=== PATIENT | male | born 1970 | race Caucasian/White ===

== ENCOUNTER 2022-12-29 14:31 | Emergency (ER) | payer BC ==
--- OUTSIDE RECORDS SUMMARY | 2022-12-29 14:34 | XMS REPORT | Continuity of Care Document ---
:1970 Author Organization [facility] t Address [address] [place] [address] [place] [id number] Care Team Providers Name Role Phone Unknown, Physician Primary Care Physician Unavailable PRACHI LUI Attending Clinician Unavailable PRACHI LUI Attending Clinician Unavailable Prachi Lui Attending Clinician Aldo Marcano Attending Clinician PRACHI LUI Admitting Clinician Unavailable Prachi Lui Admitting Clinician PRACHI LUI Admitting Clinician Unavailable Payers Payer Name Policy Type Policy Number Effective Date Expiration Date Jovi morales I BEY [id number] 2021 [place] [address] 00:00:00 Problems Condition Condition Condition Status Onset Resolution Last Treating Co mments Source Name Details Category Date Date Treatment Clinician Date Traumatic Traumatic Disease Active 2021-04 [facility] complete complete 0-10 Health tear of tear of 00:00: left left 00 rotator rotator cuff cuff S46.012A S46.012A Diagnosis Active 2021-042022-03-28 Memoria STRAIN OF STRAIN OF 0-10 09:52:00 l MUSCLE(S) MUSCLE(S) 00:00: Herm jude AND AND 00 TENDON( TENDON( Active 01/22/2022 [facility] Umberto Diabetes Diabetes Problem Active 2022-02-04 Memoria mellitus mellitus 23:35:19 l (disorder) (disorder) rmann Active Problem 02/04/2022 [facility] Epilepsy Epilepsy Problem Active 2022-02-04 Memoria (disorder) (disorder) 23:35:19 l Active Umberto Problem 02/04/2022 [facility] Gastroesop Problem Active 2022-02-04 M karlee hageal Gastroesop 23:35:19 l reflux hageal Umberto disease reflux (disorder) disease (disorder) Active Problem 02/04/2022 [facility] Gout Gout Problem Active 2022-02-04 Memor ia (disorder) (disorder) 23:35:19 l Active [place] Problem 02/04/2022 [facility] 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 23:35:19 l s s [place] (disorder) (disorder) Active Problem 02/04/2022 [facility] Rupture of Rupture Problem Active 2022-02-04 Memoria rotator of rotator 23:35:19 l cuff of cuff of [place] shoulder shoulder Active Problem 02/04/2022 [facility] Sleep Sleep Problem Active 2022-02-04 Memor ia apnea apnea 23:35:19 l (finding) (finding) Herm jude Active Problem 02/04/2022 [facility] Urgent Urgent Problem Active 2022-02-04 Arturo daniela desire to desire to 23:35:19 l urinate urinate Umberto (finding) (finding) Active Problem 02/04/2022 [facility] Allergies, Adverse Reactions, Alerts Allergy Allergy Status Severity Reaction(s) Onset Inactive Treating Comm ents Source Name Type Date Date Clinician No Known No Known Active Memori a Medicati Medicati l on on Umberto Allergie Allergie s s Social History Social Habit Start Date Stop Date Quantity Comments Source Exposure to 2022-01-12 2022-01-22 Not sure [facility] SARS-CoV-2 (event) 00:00:00 12:22:00 Tobacco use and 2022-01-22 2022-01-22 Smokeless tobacco [place] [facility] exposure 00:00:00 00:00:00 non-user Alcohol intake 2022-01-22 2022-01-22 Current drinker of [facility] 00:00:00 00:00:00 alcohol (finding) Sex Ass[birth year] [facility] 00:00:00 00:00:00 Smoking Status Start Date Stop Date Source Tobacco smoking status [facility] Medications Ordered Filled Start Stop Current Ordering Indication Dosage Frequency Signature Comments Components Source Medication Medication Date Date Medication? Clinician (SIG) Name Name albuterol 2021-04 Yes 2 puff, Memor ia 90 mcg/inh 0-20 INHALATION l inhalation 15:46: , PRN Christ n powder 00 tadalafil 2021-04 Yes 10 mg, PO, Me moria 0-20 Daily l 15:45: [place] 00 Prevacid 2021-04 Yes PO, Daily Arturo daniela 0-20 l 15:45: Umberto 00 metFORMIN 2021-04 Yes 1,000 mg, Mem oria 0-20 PO, Daily l 15:44: [place] 00 allopurinol 2021-04 Yes 300 mg, Mem oria 0-20 PO, Daily l 15:44: [place] 00 Depakote ER 2021-04 Yes 1,000 mg = Memoria 500 mg oral 0-20 2 tab, PO, l tablet, 15:43: Daily [place] extended 00 release lansoprazol 2021-04 Yes [facility] e 0-10 Health (Prevacid) 13:53: [address] 44 capsule metFORMIN 2021-04 Yes [facility] (Glucophage 0-10 Health ) 500 MG 00:00: tablet 00 tadalafil 2017-04 Yes [facility] (Cialis) 10 0-10 Health MG tablet 00:00: 00 allopurinol 2005-04 Yes [facility] (Zyloprim) 0-10 Health 300 MG 00:00: tablet 00 divalproex 1989-04 Yes [facility] (Depakote 0-10 Health ER) 500 MG 00:00: 24 hr 00 tablet Vital Signs Vital Name Observation Time Observation Value Comments Source Body height 2022-01-22 18:52:00 177.8 cm [facility] Body weight 2022-01-22 18:52:00 90[facility]719 [facility] BMI 2022-01-22 18:52:00 28.70 kg/m2 [facility] Systolic (mm Hg) 2022-02-02 22:00:00 Arturo rial [place] Diastolic (mm Hg) 2022-02-02 22:00:00 Mem orial [place] Height 2022-02-01 15:40:00 5 [ft_i] [facility] Weight 2022-02-01 15:40:00 Mikaela Umberto BMI Calculated 2022-02-01 15:40:00 Liudmila Patel Procedures Procedure Date / Time Performing Source Performed Clinician [facility] EGD - Esophagogastroduodenoscopy [facility] Colonoscopy [facility] Cholecystectomy [facility] ESWL of kidney [facility] Encounters Start End Encounter Admission Attending Care Care Encounter Source Date/Time Date/Time Type Type Clinicians Facility Department ID 2022-10-[address] [facility] [id number] [place] 10:24:56 [id number] [facility] 2022-09-[address] [facility] [id number] [place] 14:52:57 [id number] [facility] 2022-06-[address] [facility] [id number] [place] 09:08:12 [id number] [facility] 2022-06-[address] [facility] [id number] [place] 04:20:03 [id number] [facility] 2022-05-[address] [facility] [id number] [place] 11:58:17 [id number] [facility] 2022-02-[address] [facility] [id number] [place] 13:47:11 [id number] [facility] 2022-02-[address] [facility] [id number] [place] 14:35:48 [id number] [facility] 2022-02-[address] [facility] [id number] [place] 10:28:10 [id number] [facility] 2022-01-[address] [facility] [id number] [place] 04:00:35 [id number] [facility] 2022-01-[address] [facility] [id number] [place] 12:12:48 [id number] [facility] 2022-01-[address] [facility] [id number] [place] 10:25:01 [id number] [facility] 2022-01-[address] [facility] [id number] [place] 11:48:32 [id number] [facility] 2022-02-19 2022-02-[address] [facility] [id number] [place] 11:15:00 11:58:57 Health 2022-02-19 2022-02-19 [id number] [place] 11:15:00 11:58:37 PRACHI [facility] 2022-02-02 2022-02-02 Day nullFlavo [facility] [id number] Memoria 11:40:00 22:10:00 Surgery r [place] 00 l [facility] 2022-02-02 2022-02-[address] [id number] 06:40:00 17:10:00 PRACHI 2022-02-02 2022-02-02 Outpatient Pedro, [id number] 06:40:00 17:10:00 Prachi [id number] 2022-02-02 2022-02-02 Outpatient PEDRO, [facility] [id number] [place] 12:45:00 12:45:00 [facility] 2022-01-22 2022-01-[address] [facility] [id number] [place] 13:30:00 15:12:30 [facility] 2022-01-22 2022-01-22 [facility] [id number] [place] 13:30:00 14:32:09 Visit Prachi [place] [id number] [facility] [id number] [place] [id number] 2021-02-07 2021-02-07 Ambulatory nullFlavo [facility]NA [id number] Memoria 21:00:00 21:00:00 Pre-Reg r Neurology 01 l Taylor [place] 2021-02-07 2021-02-07 Outpatient [facility]IE [facility] [id number] Memoria 16:00:00 16:00:00 01 raymond [place] 2021-02-07 2021-02-07 Outpatient Jeet CAILINSCHER MISCHER [id number] 16:00:00 16:00:00 Aldo Romero 2021-02-03 2021-02-03 Ambulatory nullFlavo MNA [id number] Memoria 14:00:00 14:00:00 Pre-Reg r Neurology 00 l Taylor [place] 2021-02-03 2021-02-03 Outpatient MHIE [place] [id number] Memoria 09:00:00 09:00:00 00 l [place] 2021-02-03 2021-02-03 Outpatient Jeet [facility] [id number] 09:00:00 09:00:00 Aldo Romero Results Test Description Test Time Test Comments Results Result Comments Source POINT OF CARE 2022-02-02 20:14:00 Test Item Value Reference Range Interpretation Comme nts Glucose POC (test code = Glucose POC) 120 70-99 Mikaela Shipman
[2022-12-29] MEDS ORDERED: VALPROATE NA 500 MG/5 ML INJ IV ONE (15:08)
[2022-12-29] MEDS ORDERED: DIVALPROEX DR 250 MG TAB PO ONE ×2 (15:08→15:09)
[2022-12-29] MEDS ORDERED: NA CHLORIDE 0.9% 1,000 ML ONE ×2 (15:08→17:21)
[2022-12-29] MEDS ORDERED: NA CHLORIDE 0.9% 500 ML ONE ×2 (15:09→17:11)
[2022-12-29] MEDS ORDERED: NA CHLORIDE 0.9% 50 ML ONE (15:13)
[2022-12-29] MEDS ORDERED: LORazepam 2 MG/ML VIAL ONE (15:21)
--- NOTE | 2022-12-29 15:21 | RAD REPORT ---
EXAM DESCRIPTION: Junior Single View12/29/2022 2:58 pm CLINICAL HISTORY: cough COMPARISON: none FINDINGS: Mild bilateral interstitial lung opacities. Small opacity right base. Heart is normal size IMPRESSION: Mild bilateral interstitial lung opacities may represent a pneumonitis or viral pneumoni a. Mild right basilar opacity may represent a small infiltrate. Follow-up x-ray in a couple weeks recomm ended re-evaluation
--- NOTE | 2022-12-29 16:10 | RAD REPORT ---
EXAM DESCRIPTION: CT - Head C Spine Cap Wo Con - 12/29/2022 3:39 pm CLINICAL HISTORY: Seizure. Head and neck injury with chest and abdominal pain status post fall TECHNIQUE: Computed axial tomography of head, neck, chest, abdomen and pelvis obtained. IV and oral contrast not requested. Coronal and sagittal reconstruction performed. All CT scans are performed using dose optimization technique as appropriate and may include automated exposure control or mA/KV adjustment according to patient size. COMPARISON: None FINDINGS: An intracranial bleed is not seen. The ventricles are normal in caliber. An extra-axial fluid collection is not noted. Fluid within the sinuses/mastoids is not seen. A cervical fracture is not seen. No dislocation is noted. The evaluation of mediastinum, xu, vessels, solid organs and bowel are limited secondary to the lac k of contrast administration. A mediastinal hematoma is not noted. A pleural effusion is not seen. A lung contusion is not present. Small areas of atelectasis within the lung bases. Mild bilateral interstitial lung opacities. Calcified hilar calcified mediastinal lymph nodes. The liver,spleen, pancreas, adrenals,kidneys and bladder do not demonstrate an acute traumatic injury A small hiatal hernia. Nonobstructing left renal calculi Compression deformities involve several thoracic and lumbar vertebral bodies. Most are chronic. An ap proximately 60% compression fracture involves the L1 vertebral body. Mild retropulsion of bone into t he spinal canal is present Spleen measures 20 centimeters IMPRESSION: No acute intracranial abnormality is seen. A cervical fracture is not visualized. If the patient continues to have symptoms to suggest intracran ial/spinal cord pathology MRI be recommended Moderate compression fracture L1 vertebral body of indeterminate age. If clinically indicated further evaluation with MRI could be obtained Additional thoracic and lumbar compression deformities are probably chronic. These also could be asse ssed with the MRI Mild bilateral interstitial lung opacities may be chronic or indicate a mild pneumonitis Marked splenomegaly
[2022-12-29] MEDS ORDERED: NA CHLORIDE 0.9% 100 ML ONE (16:17)
[2022-12-29] MEDS ORDERED: PIPERACIL/TAZO 3.375 GM VIAL IV ONE (16:18)
[2022-12-29 17:22] LABS: Absolute Lymphocytes (CBC) 0.3 K/uL (0.7-4.9); Hematocrit 21.5 % (39.6-49.0); Lymphocytes % 5.6 % (15.3-44.8); MCV 78.5 fL (80-100); MPV 8.5 fL (7.6-11.3); Platelets 79 thou/uL (152-406); RBC Red Blood Cell Count 2.74 M/uL (4.33-5.43)
[2022-12-29 17:28] LABS: Protime INR 1.16
[2022-12-29 17:36] LABS: ALT/SGPT 32 U/L (16-61); AST/SGOT 30 U/L (15-37); Alkaline Phosphatase 54 U/L (45-117); BUN Blood Urea Nitrogen 33 mg/dL (7-18); Bicarbonate 20 mEq/L (21-32); Bilirubin Direct 0.4 mg/dL (0-0.2); Bilirubin Indirect, Calculated 0.9 mg/dL (0.2-0.8); Bilirubin Total 1.3 mg/dL (0.2-1.0); Glomerular Filtration Rate 54 ml/min (=/>90); Glucose Level 195 mg/dL (74-106); Magnesium 2.9 mg/dL (1.6-2.4); NT PRO-BNP 25 pg/mL (<125); Potassium 4.1 mEq/L (3.5-5.1); Protein, Total 5.7 g/dL (6.4-8.2); Sodium Level 140 mEq/L (136-145)
[2022-12-29 17:39] LABS: Specific Gravity 1.017 (1.005-1.030); Urine Bacteria None Seen /HPF (<20); Urine Bilirubin NEGATIVE (Negative); Urine Blood 2+ (Negative); Urine Clarity Turbid (Clear); Urine Color Light-Yellow (Yellow); Urine Glucose NEGATIVE (Negative); Urine Granular Casts >20 /LPF (None Seen); Urine Mucus Slight /HPF (None Seen); Urine Protein 1+ (Negative); Urine RBC <5 /HPF (None Seen); Urine Sperm Present (None Seen); Urine Urobilinogen Normal (Normal); Urine pH 5.5 (5.0-7.0)
[2022-12-29 17:41] LABS: Lipase 21 U/L (13-75); Valproic Acid (Depakene) Level 46.4 mcg/mL (50.0-100.0)
[2022-12-29 17:46] LABS: Barbiturates NEGATIVE (NEGATIVE); Benzodiazepines NEGATIVE (NEGATIVE); Cocaine NEGATIVE (NEGATIVE); METHAMPHETAM NEGATIVE (NEGATIVE); Methadone NEGATIVE (NEGATIVE); Opiates NEGATIVE (NEGATIVE); Phencyclidine NEGATIVE (NEGATIVE); THC Cannibis NEGATIVE (NEGATIVE)
--- NOTE | 2022-12-29 18:09 | EDPHYS ---
Physician Documentation [facility] Name: Chris Galvna Age: 52 yrs Sex: Male : 1970 Arrival Date: 12/29/2022 Time: 14:31 Bed 15 Private MD: [place] Physician Chapito Magallanes HPI: 12/29 15:18 This 52 yrs old Male presents to ER via EMS with complaints of Seizure. carol 15:18 The patient presents with a history of multiple seizures, a total of 2. Character of carol seizure(s): Loss of consciousness: the patient experienced loss of consciousness, Motor activity: generalized, Incontinence: none, Apnea: the patient did not experience apnea, Circulation: the patient did not experience evidence of pulse disturbance. Seizure onset: just prior to arrival. Context: the seizure(s) was witnessed, by family, . Seizure Hx: Cause: unknown, Last seizure: The patient's last seizure was approximately 10 year(s) ago. Associated injury: Other: laceration, 1 cm(s), tenderness, TOUNGE. Current symptoms: confusion. Historical: - Allergies: 14:36 No Known Allergies; me1 - Home Meds: 14:42 Depakote ER 500 mg Oral Tablet, Extended Release 24 hr 2 tabs daily [Active]; meloxicam eh3 7.5 mg oral tablet daily [Active]; metformin 500 mg Oral Tablet, Extended Release 24 hr daily [Active]; allopurinol 300 mg Oral tablet daily [Active]; - PMHx: 14:36 epilepsy; Diabetes mellitus; me1 - Immunization history:: Adult Immunizations unknown. - Social history:: Smoking status: Patient denies any tobacco usage or history of. - Family history:: not pertinent. ROS: 15:18 Constitutional: Negative for fever, chills, and weight loss, Eyes: Negative for injury, carol pain, redness, and discharge, ENT: Negative for injury, pain, and discharge, Neck: Negative for injury, pain, and swelling, Cardiovascular: Negative for chest pain, palpitations, and edema, Respiratory: Negative for shortness of breath, cough, wheezing, and pleuritic chest pain, Abdomen/GI: Negative for abdominal pain, nausea, vomiting, diarrhea, and constipation, Back: Negative for injury and pain, : Negative for injury, bleeding, discharge, and swelling, MS/Extremity: Negative for injury and deformity, Skin: Negative for injury, rash, and discoloration, Psych: Negative for depression, anxiety, suicide ideation, homicidal ideation, and hallucinations, Allergy/Immunology: Negative for hives, rash, and allergies, Endocrine: Negative for neck swelling, polydipsia, polyuria, polyphagia, and marked weight changes, Hematologic/Lymphatic: Negative for swollen nodes, abnormal bleeding, and unusual bruising. 15:18 Neuro: Positive for altered mental status, seizure activity. Exam: 15:18 Constitutional: This is a well developed, well nourished patient who is awake, alert, acrol and in no acute distress. Head/Face: Normocephalic, atraumatic. Eyes: Pupils equal round and reactive to light, extra-ocular motions intact. Lids and lashes normal. Conjunctiva and sclera are non-icteric and not injected. Cornea within normal limits. Periorbital areas with no swelling, redness, or edema. ENT: Nares patent. No nasal discharge, no septal abnormalities noted. Tympanic membranes are normal and external auditory canals are clear. Oropharynx with no redness, swelling, or masses, exudates, or evidence of obstruction, uvula midline. Mucous membranes moist. Neck: Trachea midline, no thyromegaly or masses palpated, and no cervical lymphadenopathy. Supple, full range of motion without nuchal rigidity, or vertebral point tenderness. No Meningismus. Chest/axilla: Normal chest wall appearance and motion. Nontender with no deformity. No lesions are appreciated. Cardiovascular: Regular rate and rhythm with a normal S1 and S2. No gallops, murmurs, or rubs. Normal PMI, no JVD. No pulse deficits. Respiratory: Lungs have equal breath sounds bilaterally, clear to auscultation and percussion. No rales, rhonchi or wheezes noted. No increased work of breathing, no retractions or nasal flaring. Abdomen/GI: Soft, non-tender, with normal bowel sounds. No distension or tympany. No guarding or rebound. No evidence of tenderness throughout. Back: No spinal tenderness. No costovertebral tenderness. Full range of motion. Male : Normal genitalia with no discharge or lesions. Skin: Warm, dry with normal turgor. Normal color with no rashes, no lesions, and no evidence of cellulitis. MS/ Extremity: Pulses equal, no cyanosis. Neurovascular intact. Full, normal range of motion. Neuro: Awake and alert, GCS 15, oriented to person, place, time, and situation. Cranial nerves II-XII grossly intact. Motor strength 5/5 in all extremities. Sensory grossly intact. Cerebellar exam normal. Normal gait. Psych: Awake, alert, with orientation to person, place and time. Behavior, mood, and affect are within normal limits. 15:18 ECG was reviewed by the Attending Physician. Vital Signs: 14:34 BP 98 / 47; Pulse 125; Resp 17; Temp 98(O); Pulse Ox 94% on R/A; Weight 93.44 kg; me1 Height 5 ft. 10 in. ; 14:45 BP 111 / 45; Pulse 134; Resp 23; Pulse Ox 94% on 3 lpm NC; eh3 15:00 BP 115 / 64; Pulse 132; Resp 34; Pulse Ox 98% on 3 lpm NC; eh3 15:15 BP 99 / 50; Pulse 127; Resp 28; Pulse Ox 95% on 3 lpm NC; eh3 15:45 BP 93 / 54; Pulse 127; Resp 17; Pulse Ox 100% on 3 lpm NC; eh3 16:00 BP 95 / 54; Pulse 120; Resp 34; Pulse Ox 97% on R/A; eh3 16:15 BP 102 / 56; Pulse 118; Resp 28; Pulse Ox 96% on R/A; eh3 16:30 BP 98 / 56; Pulse 117; Resp 26; Pulse Ox 94% on R/A; eh3 16:51 BP 89 / 54; Pulse 114; Resp 25; Pulse Ox 96% on R/A; eh3 17:16 BP 111 / 59; Pulse 116; Resp 19; Pulse Ox 98% on R/A; eh3 17:40 BP 114 / 91; Pulse 113; Resp 25; Pulse Ox 96% on R/A; eh3 18:00 BP 104 / 67; Pulse 112; Resp 23; Pulse Ox 99% on R/A; eh3 18:20 BP 92 / 73; Pulse 114; Resp 24; Pulse Ox 100% on R/A; eh3 18:40 BP 117 / 63; Pulse 110; Resp 23; Pulse Ox 98% on R/A; eh3 14:34 Body Mass Index 29.56 (93.44 kg, 177.8 cm) me1 Sachin Coma Score: 14:36 Eye Response: spontaneous(4). Motor Response: obeys commands(6). Verbal Response: me1 oriented(5). Total: 15. MDM: 14:33 Patient medically screened. [facility] 15:23 Differential diagnosis: cerebral vascular accident. Data reviewed: vital signs, nurses [facility] notes, lab test result(s), EKG, radiologic studies, CT scan, plain films. Consideration of Admission/Observation Escalation of care including admission/observation considered. I considered the following discharge prescriptions or medication management in the emergency department Medications were administered in the Emergency Department. See MAR. Test considered but Not performed: MRI: NO MRI BRAIN. Care significantly affected by the following chronic conditions: Diabetes, EPILEPSY. 12/29 14:42 Order name: Basic Metabolic Panel; Complete Time: 17:44 [facility] 12/29 14:42 Order name: CBC with Diff [facility] 12/29 14:42 Order name: LFT's; Complete Time: 17:44 [facility] 12/29 14:42 Order name: Magnesium; Complete Time: 17:44 [facility] 12/29 14:42 Order name: NT PRO-BNP; Complete Time: 17:44 [facility] 12/29 14:42 Order name: PT-INR; Complete Time: 17:40 [facility] 12/29 14:42 Order name: Troponin HS; Complete Time: 17:44 [facility] 12/29 14:42 Order name: Urinalysis w/ reflexes; Complete Time: 17:40 [facility] 12/29 14:42 Order name: Acetaminophen; Complete Time: 17:44 [facility] 12/29 14:42 Order name: ETOH Level; Complete Time: 17:40 [facility] 12/29 14:42 Order name: Ptt, Activated; Complete Time: 17:40 [facility] 12/29 14:42 Order name: Salicylate; Complete Time: 17:53 [facility] 12/29 14:42 Order name: Urine Drug Screen; Complete Time: 17:53 [facility] 12/29 14:57 Order name: Lipase; Complete Time: 17:44 [facility] 12/29 14:57 Order name: Valproic Acid (Depakene) Level; Complete Time: 17:44 [facility] 12/29 15:50 Order name: Blood Culture Adult (2) [facility] 12/29 15:50 Order name: Lactate w/ 2H reflex if indic.; Complete Time: 17:40 [facility] 12/29 17:43 Order name: Type And Screen [facility] 12/29 18:49 Order name: ABO/RH no charge [facility] 12/29 19:09 Order name: Packed RBCs (Additional Unit) [facility] 12/29 19:31 Order name: CBC Smear Scan [facility] 12/29 20:33 Order name: Lactate Sepsis 2 HR Follow-up [facility] 12/29 14:42 Order name: XRAY Chest (1 view); Complete Time: 15:49 [facility] 12/29 15:17 Order name: CT Traumagram (Head C Spine CAP wo con); Complete Time: 16:33 [facility] 12/29 14:42 Order name: EKG; Complete Time: 14:43 [facility] 12/29 14:42 Order name: Cardiac monitoring; Complete Time: 14:49 [facility] 12/29 14:42 Order name: EKG - Nurse/Tech; Complete Time: 16:09 [facility] 12/29 14:42 Order name: IV Saline Lock; Complete Time: 14:49 [facility] 12/29 14:42 Order name: Labs collected and sent; Complete Time: 16:09 [facility] 12/29 14:42 Order name: O2 Per Protocol; Complete Time: 14:49 [facility] 12/29 14:42 Order name: O2 Sat Monitoring; Complete Time: 14:49 [facility] 12/29 14:42 Order name: Suicide Screening ([place]); Complete Time: 14:49 [facility] 12/29 14:42 Order name: Seizure Precautions; Complete Time: 14:49 [facility] 12/29 16:31 Order name: Labs - recollect needed; Complete Time: 17:09 12/29 17:43 Order name: Transfuse; Complete Time: 20:28 [facility] 12/29 17:44 Order name: IV Saline Lock - Large Bore; Complete Time: 17:58 [facility] EC:18 Rate is 126 beats/min. Rhythm is regular. QRS [place] is Normal. [place] interval is normal. [facility] QRS interval is normal. QT interval is normal. No Q waves. T waves are Normal. No ST changes noted. Clinical impression: Sinus tachycardia. Interpreted by me. Reviewed by me. Administered Medications: 15:00 Drug: Depacon IV 500 mg Volume: 5 ml; Route: IV; Rate: calculated rate; Site: left eh3 antecubital; 16:00 Follow up: IV Status: Completed infusion; IV Intake: 500ml eh3 15:11 Drug: Ativan IVP 2 mg Route: IVP; Site: left antecubital; me1 15:30 Follow up: Response: No adverse reaction; RASS: Drowsy (-1) 3 15:30 Drug: NS 0.9% IV 1000 ml Route: IV; Rate: 1 bolus; Site: left antecubital; 3 16:30 Follow up: IV Status: Completed infusion; IV Intake: 1000ml 3 15:30 Drug: NS 0.9% IV 1000 ml Route: IV; Rate: 1 bolus; Site: left antecubital; eh3 16:30 Follow up: IV Status: Completed infusion; IV Intake: 1000ml 3 16:20 Drug: Piperacillin-Tazobactam IVPB 3.375 grams Route: IVPB; Infused Over: 60 mins; 3 Site: left antecubital; 17:20 Follow up: Response: No adverse reaction; IV Status: Completed infusion; IV Intake: eh3 100ml 17:30 Drug: Depakote PO 500 mg Route: PO; 3 18:00 Follow up: Response: No adverse reaction 3 17:58 Drug: NS 0.9% IV 1000 ml Route: IV; Rate: 1 bolus; Site: right antecubital; ld1 20:00 Follow up: IV Status: Completed infusion; IV Intake: 1000ml 3 18:12 Drug: Pantoprazole IVP 80 mg Route: IVP; Site: right antecubital; ld1 18:45 Follow up: Response: No adverse reaction 3 18:15 Drug: Pantoprazole IV 8 mg/hr Route: IV; Rate: 25 ml/hr; Site: right antecubital; ld1 21:00 Follow up: Response: No adverse reaction; IV Status: Infusion continued upon transfer; 3 IV Intake: 75ml 18:35 Drug: fentaNYL (PF) IVP 25 mcg Route: IVP; Site: left antecubital; ld1 19:30 Follow up: Response: No adverse reaction eh3 18:35 Drug: Ondansetron IVP 4 mg Route: IVP; Site: left antecubital; ld1 19:30 Follow up: Response: No adverse reaction eh3 19:52 Drug: fentaNYL (PF) IVP 25 mcg Route: IVP; Site: left antecubital; eh3 20:30 Follow up: Response: No adverse reaction eh3 Disposition Summary: 12/29/22 18:08 Transfer Ordered Transfer Location: 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 EDMS EDMS 14:58 14:46 VALPROIC ACID (DEPAKOTE)+C.LAB.BRZ ordered. EDMS EDMS 15:36 14:43 Head Brain Wo Cont+CT.RAD.BRZ ordered. EDMS EDMS 18:21 18:08 to [facility] carol carol 21:01 18:21 to [facility] carol kb3
--- NOTE | 2022-12-29 18:09 | ER ---
Nurse's Notes [facility] Name: Chris Galvan Age: 52 yrs Sex: Male : 1970 Arrival Date: 12/29/2022 Time: 14:31 Bed 15 Private MD: Diagnosis: GI Bleed/ Gastrointestinal hemorrhage, unspecified-upper;Epilepsy, unspecified, intractable, with status epilepticus-subtheraputic Depokote;Fracture of lumbar vertebra-LUMBAR #1 60% COMPRESSION FX WITH RETROPULSION;Unspecified kidney failure;Splenomegaly, not elsewhere classified-20 CM;Sarcoidosis of lung;Sarcoidosis of lymph nodes-BONE MARROW;Anemia, unspecified-BLOOD LOSS;Pneumonia due to other specified bacteria-BILATERAL, PNEUMONITIS;Vomiting;Diarrhea, unspecified Presentation: 12/29 14:34 Chief complaint: EMS states: toned out to house for seizure that lasted about 30 me1 seconds. Significant other reports that patient has had a seizure in about 10 years but does have a hx of epilepsy. Coronavirus screen: Vaccine status: Patient reports receiving the 2nd dose of the covid vaccine. Ebola Screen: No symptoms or risks identified at this time. Initial Sepsis Screen: Does the patient meet any 2 criteria? HR > 90 bpm. No. Patient's initial sepsis screen is negative. Does the patient have a suspected source of infection? No. Patient's initial sepsis screen is negative. Risk Assessment: Do you want to hurt yourself or someone else? Patient reports no desire to harm self or others. Onset of symptoms was December 29, 2022. 14:34 Method Of Arrival: [place] [facility] [place] Acuity: GLORIA 3 me1 Triage Assessment: 14:36 General: Appears comfortable, well groomed, well developed, well nourished, Behavior is me1 cooperative, appropriate for age, flat, postictal. Pain: Denies pain. Neuro: Level of Consciousness is awake, alert, obeys commands, Oriented to person, place, time, situation, Appropriate for age. Cardiovascular: Capillary refill < 3 seconds Patient's skin is warm and dry. Respiratory: Airway is patent Respiratory effort is even, unlabored, Respiratory pattern is regular, symmetrical. Historical: - Allergies: 14:36 No Known Allergies; me1 - Home Meds: 14:42 Depakote ER 500 mg Oral Tablet, Extended Release 24 hr 2 tabs daily [Active]; meloxicam eh3 7.5 mg oral tablet daily [Active]; metformin 500 mg Oral Tablet, Extended Release 24 hr daily [Active]; allopurinol 300 mg Oral tablet daily [Active]; - PMHx: 14:36 epilepsy; Diabetes mellitus; me1 - Immunization history:: Adult Immunizations unknown. - Social history:: Smoking status: Patient denies any tobacco usage or history of. - Family history:: not pertinent. Screenin:45 [facility] ED Fall Risk Assessment (Adult) Score/Fall Risk Level 3 or more points = High eh3 Risk Oriented to surroundings, Maintained a safe environment, Educated pt \T\ family on fall prevention, incl call for assistance when getting out of bed, Assessed \T\ reinforced patient's understanding of fall precautions, Provided non-skid footwear, Hourly rounding (assess needs \T\ fall precautionary measures) done, Utilized family, sitter, or virtual educational program director as indicated. Abuse screen: Denies threats or abuse. Denies injuries from another. Nutritional screening: Has had N/V for 3 or more days. Tuberculosis screening: No symptoms or risk factors identified. 17:30 [place]on Swallow Protocol Exclusion Criteria: Exclusion Criteria Result: Proceed Brief 3 Cognitive Screen What is your name? Normal, Where are you right now? Normal, What year is it? Normal. Oral Mechanism Examination Facial Symmetry: Normal, Motion: Normal, Lip Closure: Normal, Oral Mechanism Result: Normal. 3 oz Water Swallow Challenge: Pt able to drink all water without stopping, coughing, choking or throat clearing: Yes Result: PASS. Assessment: 14:45 General: Appears ill, Behavior is drowsy. Pain: Complains of pain in back. Neuro: Level eh3 of Consciousness is post ictal, Oriented to person, place. Cardiovascular: Capillary refill < 3 seconds Patient's skin is warm and dry. Respiratory: Airway is patent Respiratory effort is even, Respiratory pattern is symmetrical, tachypnea. GI: Abdomen is round non-distended. Derm: Skin is dry, Skin is jaundiced, Skin temperature is warm. 15:00 Reassessment: Patient appears in no apparent distress at this time. Pt is alert and 3 states his name and date of clearly. 15:09 Reassessment: Pt actively seizing, seizure precautions in place, sustained bite to eh3 tongue with moderate amount of bleeding. RN and pt's significant other at bedside protecting pt from bodily injury. 15:11 Reassessment: Seizure lasted approximately 1 minute. Pt now in postictal state. eh3 15:30 Reassessment: Patient appears in no apparent distress at this time. Patient and/or eh3 family updated on plan of care and expected duration. Pain level reassessed. 16:00 Reassessment: Patient appears in no apparent distress at this time. Pt is A\T\O x person eh3 \T\ place, equal unlabored tachypnea, skin warm/dry/jaundiced. 16:30 Reassessment: Patient appears in no apparent distress at this time. Patient and/or eh3 family updated on plan of care and expected duration. Pain level reassessed. Pt is A\T\O x person \T\ place, equal unlabored tachypnea, skin warm/dry/jaundiced. 17:00 Reassessment: Patient appears in no apparent distress at this time. Pt is A\T\O x person eh3 \T\ place, equal unlabored tachypnea, skin warm/dry/jaundiced. 17:30 Reassessment: Patient appears in no apparent distress at this time. Patient and/or eh3 family updated on plan of care and expected duration. Pain level reassessed. Pt is A\T\O x person \T\ place, equal unlabored tachypnea, skin warm/dry/jaundiced. 18:00 Reassessment: Patient appears in no apparent distress at this time. Pt is A\T\O x person eh3 \T\ place, equal unlabored tachypnea, skin warm/dry/jaundiced. 18:30 Reassessment: Patient appears in no apparent distress at this time. Patient and/or eh3 family updated on plan of care and expected duration. Pain level reassessed. Pt is A\T\O x person \T\ place, equal unlabored tachypnea, skin warm/dry/jaundiced. 18:35 Reassessment: Failed attempt to call report to [facility]; nurse states pt is not eh3 assigned to a nurse yet and requests to call back in 10 minutes. 18:45 Reassessment: Failed attempt to call report to [facility]. Placed on hold for 5 eh3 minutes. 18:55 Reassessment: Failed attempt to call report to [facility]. No answer to nurse's 3 station phone. 19:00 Reassessment: Patient appears in no apparent distress at this time. Pt is A\T\O x person eh3 \T\ place, equal unlabored tachypnea, skin warm/dry/jaundiced. 19:25 Reassessment: Nurse to nurse report received by BRIAN Morrison at [facility]. [facility] 19:30 Reassessment: Patient appears in no apparent distress at this time. Patient and/or 3 family updated on plan of care and expected duration. Pain level reassessed. Pt is A\T\O x person \T\ place, equal unlabored tachypnea, skin warm/dry/jaundiced. 20:00 Reassessment: Patient appears in no apparent distress at this time. Pt is A\T\O x person eh3 \T\ place, equal unlabored tachypnea, skin warm/dry/jaundiced. 20:10 Reassessment: PRBC infusion started at 2009, see Blood Product Transfusion Record for 3 additional information. 20:30 Reassessment: Patient appears in no apparent distress at this time. Patient and/or eh3 family updated on plan of care and expected duration. Pain level reassessed. Pt is A\T\O x person \T\ place, equal unlabored tachypnea, skin warm/dry/jaundiced. Vital Signs: 14:34 BP 98 / 47; Pulse 125; Resp 17; Temp 98(O); Pulse Ox 94% on R/A; Weight 93.44 kg; me1 Height 5 ft. 10 in. ; 14:45 BP 111 / 45; Pulse 134; Resp 23; Pulse Ox 94% on 3 lpm NC; eh3 15:00 BP 115 / 64; Pulse 132; Resp 34; Pulse Ox 98% on 3 lpm NC; eh3 15:15 BP 99 / 50; Pulse 127; Resp 28; Pulse Ox 95% on 3 lpm NC; eh3 15:45 BP 93 / 54; Pulse 127; Resp 17; Pulse Ox 100% on 3 lpm NC; eh3 16:00 BP 95 / 54; Pulse 120; Resp 34; Pulse Ox 97% on R/A; eh3 16:15 BP 102 / 56; Pulse 118; Resp 28; Pulse Ox 96% on R/A; eh3 16:30 BP 98 / 56; Pulse 117; Resp 26; Pulse Ox 94% on R/A; eh3 16:51 BP 89 / 54; Pulse 114; Resp 25; Pulse Ox 96% on R/A; eh3 17:16 BP 111 / 59; Pulse 116; Resp 19; Pulse Ox 98% on R/A; eh3 17:40 BP 114 / 91; Pulse 113; Resp 25; Pulse Ox 96% on R/A; eh3 18:00 BP 104 / 67; Pulse 112; Resp 23; Pulse Ox 99% on R/A; eh3 18:20 BP 92 / 73; Pulse 114; Resp 24; Pulse Ox 100% on R/A; eh3 18:40 BP 117 / 63; Pulse 110; Resp 23; Pulse Ox 98% on R/A; eh3 14:34 Body Mass Index 29.56 (93.44 kg, 177.8 cm) me1 Sachin Coma Score: 14:36 Eye Response: spontaneous(4). Motor Response: obeys commands(6). Verbal Response: me1 oriented(5). Total: 15. ED Course: 14:33 Patient arrived in ED. [facility] 14:33 Chapito Magallanes MD is Attending Physician. [facility] 14:36 Triage completed. me1 14:36 Arm band placed on Patient placed in an exam room. me1 14:42 Lena Sewell, RN is Primary Nurse. eh3 14:45 Patient has correct armband on for positive identification. Placed in gown. Bed in low eh3 position. Call light in reach. Side rails up X2. Adult w/ patient. Seizure precautions initiated. Provided Education on: Use of call morgan. Client placed on continuous cardiac and pulse oximetry monitoring. NIBP monitoring applied. 14:45 Maintain EMS IV. Dressing intact. Good blood return noted. Site clean \T\ dry. Gauge \T\ eh 3 site: 20g LAC. 15:00 XRAY Chest (1 view) In Process Unspecified. EDMS 15:41 CT Traumagram (Head C Spine CAP wo con) In Process Unspecified. EDMS 17:09 Lactate w/ 2H reflex if indic. Sent. ld1 17:09 Blood Culture Adult (2) Sent. ld1 17:09 Lipase Sent. ld1 17:09 Inserted saline lock: 20 gauge in right antecubital area, using aseptic technique. [facility] Blood collected. IV inserted by Marnie Ruiz RN. 18:30 Consent for blood and/or blood product transfusion explained by staff, explained by [facility] physician, signed by patient. 18:31 Type And Screen Sent. ds4 21:00 No provider procedures requiring assistance completed. Patient transferred, IV remains [facility] in place. Administered Medications: 15:00 Drug: Depacon IV 500 mg Volume: 5 ml; Route: IV; Rate: calculated rate; Site: left 3 antecubital; 16:00 Follow up: IV Status: Completed infusion; IV Intake: 500ml [facility] 15:11 Drug: Ativan IVP 2 mg Route: IVP; Site: left antecubital; [facility] [place] Follow up: Response: No adverse reaction; RASS: Drowsy (-1) [facility] 15:30 Drug: NS 0.9% IV 1000 ml Route: IV; Rate: 1 bolus; Site: left antecubital; 3 16:30 Follow up: IV Status: Completed infusion; IV Intake: 1000ml [facility] 15:30 Drug: NS 0.9% IV 1000 ml Route: IV; Rate: 1 bolus; Site: left antecubital; 3 16:30 Follow up: IV Status: Completed infusion; IV Intake: 1000ml [facility] 16:20 Drug: Piperacillin-Tazobactam IVPB 3.375 grams Route: IVPB; Infused Over: 60 mins; [facility] Site: left antecubital; 17:20 Follow up: Response: No adverse reaction; IV Status: Completed infusion; IV Intake: 3 100ml 17:30 Drug: Depakote PO 500 mg Route: PO; 3 18:00 Follow up: Response: No adverse reaction [facility] 17:58 Drug: NS 0.9% IV 1000 ml Route: IV; Rate: 1 bolus; Site: right antecubital; 1 20:00 Follow up: IV Status: Completed infusion; IV Intake: 1000ml [facility] 18:12 Drug: Pantoprazole IVP 80 mg Route: IVP; Site: right antecubital; 1 18:45 Follow up: Response: No adverse reaction [facility] 18:15 Drug: Pantoprazole IV 8 mg/hr Route: IV; Rate: 25 ml/hr; Site: right antecubital; ld1 21:00 Follow up: Response: No adverse reaction; IV Status: Infusion continued upon transfer; eh3 IV Intake: 75ml 18:35 Drug: fentaNYL (PF) IVP 25 mcg Route: IVP; Site: left antecubital; ld1 19:30 Follow up: Response: No adverse reaction eh3 18:35 Drug: Ondansetron IVP 4 mg Route: IVP; Site: left antecubital; ld1 19:30 Follow up: Response: No adverse reaction eh3 19:52 Drug: fentaNYL (PF) IVP 25 mcg Route: IVP; Site: left antecubital; eh3 20:30 Follow up: Response: No adverse reaction eh3 Medication: 21:00 VIS not applicable for this client. eh3 Intake: 16:00 IV: 500ml; Total: 500ml. eh3 16:30 IV: 1000ml; Total: 1500ml. eh3 16:30 IV: 1000ml; Total: 2500ml. eh3 17:20 IV: 100ml; Total: 2600ml. eh3 20:00 IV: 1000ml; Total: 3600ml. eh3 21:00 IV: 75ml; Total: 3675ml. eh3 Outcome: 18:08 ER care complete, transfer ordered by . carol 21:00 Transferred by ground EMS to [facility], Transfer form completed. eh3 21:00 Condition: stable 21:00 Instructed on the need for transfer. 21:01 Patient left the ED. kb3 Signatures: Dispatcher [employer] Chapito Patiño MD MD cha Pinkerton, Shawna sp Swanson, Donovan ds4 Marnie Ruiz, RN RN ld1 Lena Sewell, RN RN eh3 Shamika Lindsay, RN RN kb3 Kathy Whitney, RN RN me1 Corrections: (The following items were deleted from the chart) 19:04 15:09 Reassessment: Pt actively seizing, seizure precautions in place, sustained bite eh3 to tongue with moderate amount of bleeding eh3 19:06 19:[address] Magallanes called [facility] for Transfer. sp sp 19: 19:05 [facility] called back no beds sp sp 20:53 16:30 Reassessment: Patient appears in no apparent distress at this time. Pt is A\T\O x eh3 person \T\ place, equal unlabored tachypnea, skin warm/dry/jaundiced eh3 20:53 17:30 Reassessment: Patient appears in no apparent distress at this time. Pt is A\T\O x eh3 person \T\ place, equal unlabored tachypnea, skin warm/dry/jaundiced eh3
[2022-12-29] MEDS ORDERED: NA CHLORIDE 0.9% 250 ML ONE (18:16)
[2022-12-29] MEDS ORDERED: PANTOPRAZOLE 40 MG INJ ONE (18:16)
[2022-12-29] MEDS ORDERED: FENTANYL CITR 100 MCG/2 ML ONE (18:43)
[2022-12-29] MEDS ORDERED: ONDANSETRON 4 MG/2 ML VIAL ONE (18:44)
[2022-12-29 19:30] LABS: Anisocytosis 1+; Blood Morphology Comment NOTED (NOT SEEN); Platelet Estimate DECR; Poikilocytosis 1+; White Blood Cell Scan OK (OK)
[2022-12-29 22:01] VITALS: TEMP 98
[2022-12-29 22:22] VITALS: BP 117/63; O2SAT 98
--- NOTE | 2022-12-31 19:08 | EKG ---
Test Date: 2022-12-29 Test Time: 15:18:49 Elder Assistant: MAGO MEASUREMENT RESULTS: Intervals: Rate: 126 NC: 128 QRSD: 98 QT: 338 QTc: 489 [place]: P: NC: 128 QRS: 57 T: 3 INTERPRETIVE STATEMENTS: Sinus tachycardia ST & T wave abnormality, consider inferior ischemia Abnormal ECG No previous ECG available for comparison Electronically Signed On 12-31-22 19:05:29 CDT by Donta Live
== END 2022-12-29 21:01 | disposition short-term general hospital (02) ==
LOC: ER 14:31
PROC: 30233N1 Transfusion of Nonautologous Red Blood Cells into Peripheral Vein, Percutaneous Approach (ICD-10-PCS; principal; 2022-12-29)
DX: K92.2 Gastrointestinal hemorrhage, unspecified (principal); G40.911 Epilepsy, unspecified, intractable, with status epilepticus; S32.010A Wedge compression fracture of first lumbar vertebra, initial encounter for closed fracture; N19 Unspecified kidney failure; R16.1 Splenomegaly, not elsewhere classified; D86.2 Sarcoidosis of lung with sarcoidosis of lymph nodes; D50.0 Iron deficiency anemia secondary to blood loss (chronic); J15.8 Pneumonia due to other specified bacteria; R11.10 Vomiting, unspecified; R19.7 Diarrhea, unspecified; E11.9 Type 2 diabetes mellitus without complications; R89.2 Abnormal level of other drugs, medicaments and biological substances in specimens from other organs, systems and tissues
CPT/HCPCS: 87040 ×2; 85025; 81001; 80048; 36415; 86900; 83735; 86850; 85610; 86901; 80076; 80164; 83605 ×2; 85730; 86920 ×2; 84484; 83690; 83880; 80307; 70450; 71250; 72125; 71045; 99285; 80143; 80179; 82077; 36430; 93005; J2543; C9113; J3010; J2405; P9016; J7050; J7040 ×2; J7030 ×2

== ENCOUNTER 2023-01-23 03:59 | Emergency (ER) | payer BC ==
--- OUTSIDE RECORDS SUMMARY | 2023-01-23 04:05 | XMS REPORT | Continuity of Care Document ---
:1970 Author Organization [facility] t Address [address] [facility] [address] [place] [address] Care Team Providers Name Role Phone Unknown, Physician Primary Care Physician Unavailable MARQUES LYNCH Attending Clinician Unavailable MARK SOLITARIO Attending Clinician Unavailable SAURABH GONZALES Attending Clinician Unavailable EBONI ORLANDO Attending Clinician Unavailable GRISEL ROCHE Attending Clinician Unavailable Cornell Stallings MD Attending Clinician Valdemar Madera MD, Vishnu Hernandez Attending Clinici an Tawana KIM, Jenae Swann Attending Clinician [phone] Janet KIM, Saurabh Foy Attending Clinician [phone] Marques Lynch MD Attending Clinician Walt Hammond Attending Clinician Valerie Walters Attending Clinician Debbie Glass MD Attending Clinician Deejay Sorenson Attending Clinician Williams Edwards MD Attending Clinician PRACHI AVSQUEZ Attending Clinician Unavailable PRACHI VASQUEZ Attending Clinician Unavailable Prachi Vasquez Attending Clinician Aldo Marcano Attending Clinician MARQUES LYNCH Admitting Clinician Unavailable VISHNU MARIN Admitting Clinician Unavailable PRACHI VASQUEZ Admitting Clinician Unavailable Prachi Vasquez Admitting Clinician PRACHI VASQUEZ Admitting Clinician Unavailable Payers Payer Name Policy Type Policy Number Effective Date Expiration Date S carmen BCBS PPO POS EPO [id number] 2022 CHOICE 00:00:00 LILIReynaldo BEY [id number] 2021 SNANA Hawley 00:00:00 Problems Condition Condition Condition Status Onset Resolution Last Treating Co mments Source Name Details Category Date Date Treatment Clinician Date Type 2 Type [address] [facility] diabetes diabetes nce 12-31 [facility] mellitus mellitus 00:00: Medica l 00 Center Portal Portal Disease Recurre [facility] hypertensi hypertensi nce 12-31 Nissa kes on on 00:00: Medical 00 Center Epilepsy, Epilepsy, Disease Active [facility] unspecifie unspecifie 12-30 Nissa hung d, d, 00:00: Medical intractabl intractabl 00 Ce nter e, without e, without status status epilepticu epilepticu s s Seizures Seizures Disease Recurre [facility] 00[facility] Anemia Anemia Disease Active [facility] Sarcoidosi Sarcoidosi Disease Recurre [facility] s [facility] 17 [facility] 00:[facility]: Medical 00 Center Thrombocyt Thrombocyt Disease Recurre [facility] openia openia nce 17 [facility] 00:[facility]: Medical 00 Center Epilepsy, Epilepsy, Disease Active [facility] unspecifie unspecifie 12-30 Nissa persaud d, d, 00:00: Medical intractabl intractabl 00 Ce nter e, without e, without status status epilepticu epilepticu s s Acute Acute Disease Active [facility] blood loss blood loss 9-17 Nissa kes anemia anemia 00:00: Medical 00 Center Gastrointe Gastrointe Disease Active [facility] stinal stinal 9-16 [facility] hemorrhage hemorrhage 00:00: Me dical with with 00 Center melena melena Traumatic Traumatic Disease Active 2021-04 [facility] complete complete 0-10 Health tear of tear of 00:00: left left 00 rotator rotator cuff cuff S46.012A S46.012A Diagnosis Active 2021-042022-03-28 [facility] STRAIN OF STRAIN OF 0-10 09:52:00 l MUSCLE(S) MUSCLE(S) 00:00: Herm britany AND AND 00 TENDON( TENDON( Active 01/22/2022 [facility] Gastroesop Gastroeso Problem Active 2022-02-04 Memoria hageal phageal 23:35:19 l reflux reflux [place] disease disease (disorder) (disorder) Active Problem 02/04/2022 [facility] Gout Gout Problem Active 2022-02-04 Memor ia (disorder) (disorder) 23:35:19 l Active [place] Problem 02/04/2022 [facility] Pulmonary Problem Active 2022-02-04 Me moria sarcoidosi Pulmonary 23:35:19 l s sarcoidosi Christ n (disorder) s (disorder) Active Problem 02/04/2022 [facility] Rupture of Rupture Problem Active 2022-02-04 Memoria rotator of rotator 23:35:19 l cuff of cuff of [place] shoulder shoulder Active Problem 02/04/2022 [facility] Sleep Sleep Problem Active 2022-02-04 Mem[facility] ia apnea apnea 23:35:19 l (finding) (finding) Herm britany Active Problem 02/04/2022 [facility] Urgent Urgent Problem Active 2022-02-04 Arturo danilea desire to desire to 23:35:19 l urinate urinate [place] (finding) (finding) Active Problem 02/04/2022 [facility] Diabetes Diabetes Problem Active 2022-02-04 [facility] mellitus mellitus 23:35:19 l (disorder) (disorder) He rmann Active Problem 02/04/2022 [facility] Allergies, Adverse Reactions, Alerts Allergy Allergy Status Severity Reaction(s) Onset Inactive Treating Comm ents Source Name Type Date Date Clinician NO KNOWN Allergy Active [facility] No Known No Known Active [facility]ori a Medicati Medicati l on on [facility] Social History Social Habit Start Date Stop Date Quantity Comments Source Alcohol intake 2023-01-03 2023-01-03 [facility] drink[facility] of [facility] 00:[facility] 00:00:00 alcohol (finding) Medical Center Exposure to 2022-12-20 2022-12-[address] [facility] SARS-CoV-2 00:00:00 00:22:00 Medical Center (event) Tobacco use and 2022-12-30 2022-12-30 Smokeless tobacco [facility] exposure 00:00:00 00:00:00 non-user Medical Center Alcohol Comment 2022-12-30 2022-12-[address] [facility] 00:00:00 00:00:00 Medical Center Sex Assigned At [address] Nissa kes 00:00:00 00:00:00 Medical Center Smoking Status Start Date Stop Date Source Tobacco smoking status [facility] Medications Ordered Filled Start Stop Current Ordering Indication Dosage Frequency Signature Comments Components Source Medication Medication Date Date Medication? Clinician (SIG) Name Name divalproex 2023- Yes 1000mg QD Take [address] (DEPAKOTE) 01-07 tablets [facility] 500 MG 24 00:00: 23:59 (1,000 mg Me dical hr tablet 00 :00 total) by Cente r mouth daily. divalproex 2023- Yes 1000mg QD Take [address] (DEPAKOTE) 01-07-24 tablets [facility] 500 MG 24 00:00: 23:59 (1,000 mg Me dical hr tablet 00 :00 total) by Cente r mouth daily. divalproex 2023- Yes 1000mg QD Take [address] (DEPAKOTE) 01-07-24 tablets [facility] 500 MG 24 00:00: 23:59 (1,000 mg Me dical hr tablet 00 :00 total) by Cente r mouth daily. divalproex 2023- Yes 1000mg QD Take [address] (DEPAKOTE) 9-25 09-24 tablets [facility] 500 MG 24 00:00: 23:59 (1,000 mg Me dical hr tablet 00 :00 total) by Cente r mouth daily. polyethylen 0 2022- Yes 17g QD Take [address] [facility] e glycol 9-25 10-09 by mouth [facility] (GLYCOLAX) 00:00: 23:59 daily for M edical 17 gram 00 :00 14 days. Center packet polyethylen 2022-0 2022- Yes 17g QD Take [address] [facility] e glycol 9-25 10-09 by mouth [facility] (GLYCOLAX) 00:00: 23:59 daily for M edical 17 gram 00 :00 14 days. Center packet polyethylen 2022-0 2022- Yes 17g QD Take [address] [facility] e glycol -25 10-09 by mouth [facility] (GLYCOLAX) 00:00: 23:59 daily for M edical 17 gram 00 :00 14 days. Center packet polyethylen 0 2022- No 17g QD Take [address] e glycol -25 10-09 by mouth [facility] (GLYCOLAX) 00:00: 23:59 daily for M edical 17 gram 00 :00 14 days. Center packet lidocaine 2022-0 Yes 2{patch Q24H Place [address] (LIDODERM) 9-24 } patches [facility] 4 % patch 00:00: onto the [place] [id number] skin Center daily. pantoprazol 3-0 Yes 40mg Q.5D Take [address] [facility] e 9-24 tablet (40 [facility] (PROTONIX) 00:00: mg total) Me dical 40 MG 00 by mouth 2 Center tablet (two) times daily. lidocaine 2023-0 Yes 2{patch Q24H Place [address] (LIDODERM) 9-24 } patches [facility] 4 % patch 00:00: onto the [place] [id number] skin Center daily. pantoprazol 2023-0 Yes 40mg Q.5D Take [address] [facility] e 9-24 tablet (40 [facility] (PROTONIX) 00:00: mg total) Me dical 40 MG 00 by mouth 2 Center tablet (two) times daily. lidocaine 2023-0 Yes 2{patch Q24H Place [address] (LIDODERM) 9-24 } patches [facility] 4 % patch 00:00: onto the [place] [address] skin Center daily. pantoprazol 2022-0 Yes 40mg Q.5D Take [address] [facility] e 9-24 tablet (40 [facility] (PROTONIX) 00:00: mg total) Me dical 40 MG 00 by mouth 2 Center tablet (two) times daily. lidocaine 2022-0 Yes 2{patch Q24H Place [address] (LIDODERM) 01-06 } patches [facility] 4 % patch 00:00: onto the [place] [address] skin Center daily. pantoprazol 2022-0 Yes 40mg Q.5D Take [address] [facility] [facility] e 9-24 tablet (40 [facility] (PROTONIX) 00:00: mg total) Me dical 40 MG 00 by mouth 2 Center tablet (two) times daily. carvediloL 2023- Yes 3.125mg Q.5D Take [address] (COREG) 01-06 tablet [facility] 3.125 MG 00:00: 23:59 (3.125 mg Med ical tablet 00 :00 total) by Center mouth 2 (two) times daily. gabapentin 2023- Yes 300mg Q.[id number] Take [address] [facility] (NEURONTIN) 01-06 [id number] capsule [facility] 300 MG 00:00: 23:59 3D (300 mg Medical capsule 00 :00 total) by Center mouth 3 (three) times daily. carvediloL 2023- Yes 3.125mg Q.5D Take [address] (COREG) 01-06 tablet [facility] 3.125 MG 00:00: 23:59 (3.125 mg Med ical tablet 00 :00 total) by Center mouth 2 (two) times daily. gabapentin 2022-2023- Yes 300mg Q.[id number] Take [address] [facility] (NEURONTIN) 01-06 [id number] capsule [facility] 300 MG 00:00: 23:59 3D (300 mg Medical capsule 00 :00 total) by Center mouth 3 (three) times daily. carvediloL 2022-2023- Yes 3.125mg Q.5D Take [address] (COREG) 01-06 tablet [facility] 3.125 MG 00:00: 23:59 (3.125 mg Med ical tablet 00 :00 total) by Center mouth 2 (two) times daily. gabapentin 2022-2023- Yes 300mg Q.[id number] Take [address] [facility] (NEURONTIN) 01-06 [id number] capsule [facility] 300 MG 00:00: 23:59 3D (300 mg Medical capsule 00 :00 total) by Center mouth 3 (three) times daily. carvediloL 2022-2023- Yes 3.125mg Q.5D Take [address] (COREG) 01-06 tablet [facility] 3.125 MG 00:00: 23:59 (3.125 mg Med ical tablet 00 :00 total) by Center mouth 2 (two) times daily. gabapentin 2022-2023- Yes 300mg Q.[id number] Take [address] [facility] (NEURONTIN) 01-06 [id number] capsule [facility] 300 MG 00:00: 23:59 3D (300 mg Medical capsule 00 :00 total) by Center mouth 3 (three) times daily. baclofen 2022-0 2022- Yes 5mg Q.5D Take [address] [facility] (LIORESAL) 01-06 10-14 tablet (5 Nettie es 5 mg Tab 00:00: 23:59 mg total) Med ical 00 :00 by mouth 2 Center (two) times daily for 20 days. baclofen 2022-0 2022- Yes 5mg Q.5D Take [address] [facility] (LIORESAL) 01-06 10-14 tablet (5 Nettie es 5 mg Tab 00:00: 23:59 mg total) Med ical 00 :00 by mouth 2 Center (two) times daily for 20 days. baclofen 2022-0 2022- Yes 5mg Q.5D Take [address] (LIORESAL) 01-06 10-14 tablet (5 Nettie es 5 mg Tab 00:00: 23:59 mg total) Med ical 00 :00 by mouth 2 Center (two) times daily for 20 days. baclofen 2022-0 2022- Yes 5mg Q.5D Take [address] [facility] (LIORESAL) 01-06 10-14 tablet (5 Nettie es 5 mg Tab 00:00: 23:59 mg total) Med ical 00 :00 by mouth 2 Center (two) times daily for 20 days. HYDROcodone 2022- Yes 1{tbl} Take [address] -acetaminop 9-24 10-04 tablet by Nissa sepulveda (NORCO 00:00: 23:59 mouth Medic al 10-325) 00 :00 every 6 Center 10-325 mg (six) per tablet hours as needed for up to 10 days. Max Daily Amount: 4 tablets HYDROcodone 2022- Yes 1{tbl} Take [address] -acetaminop 9-24 10-04 tablet by Nissa sepulveda (NORCO 00:00: 23:59 mouth Medic al 10-325) 00 :00 every 6 Center 10-325 mg (six) per tablet hours as needed for up to 10 days. Max Daily Amount: 4 tablets HYDROcodone 2022- Yes 1{tbl} Take [address] -acetaminop 9-24 10-04 tablet by Nissa sepulveda (NORCO 00:00: 23:59 mouth Medic al 10-325) 00 :00 every 6 Center 10-325 mg (six) per tablet hours as needed for up to 10 days. Max Daily Amount: 4 tablets HYDROcodone 2022- No 1{tbl} Take [address] -acetaminop 9-24 10-04 tablet by Nissa sepulveda (NORCO 00:00: 23:59 mouth Medic al 10-325) 00 :00 every 6 Center 10-325 mg (six) per tablet hours as needed for up to 10 days. Max Daily Amount: 4 tablets albuterol 2021-04 Yes 2 puff, Memor ia 90 mcg/inh 0-20 INHALATION l inhalation 15:46: , PRN Christ n powder 00 albuterol 2021-04 Yes 2 puff, Memor ia 90 mcg/inh 0-20 INHALATION l inhalation 15:46: , PRN Crhist n powder 00 albuterol 2021-04 Yes 2 puff, Memor ia 90 mcg/inh 0-20 INHALATION l inhalation 15:46: , PRN Christ n powder 00 albuterol 2021-04 Yes 2 puff, Memor ia 90 mcg/inh 0-20 INHALATION l inhalation 15:46: , PRN Christ n powder 00 albuterol 2021-04 Yes 2 puff, Memor ia 90 mcg/inh 0-20 INHALATION l inhalation 15:46: , PRN Christ n powder albuterol 2021-04 Yes 2 puff, Memor ia 90 mcg/inh 0-20 INHALATION l inhalation 15:46: , PRN Christ n powder albuterol 2021-04 Yes 2 puff, Memor ia 90 mcg/inh 0-20 INHALATION l inhalation 15:46: , PRN Christ n powder albuterol 2021-04 Yes 2 puff, Memor ia 90 mcg/inh 0-20 INHALATION l inhalation 15:46: , PRN Christ n powder albuterol 2021-04 Yes 2 puff, Memor ia 90 mcg/inh 0-20 INHALATION l inhalation 15:46: , PRN Christ n powder albuterol 2021-04 Yes 2 puff, Memor ia 90 mcg/inh 0-20 INHALATION l inhalation 15:46: , PRN Christ n powder albuterol 2021-04 Yes 2 puff, Memor ia 90 mcg/inh 0-20 INHALATION l inhalation 15:46: , PRN Christ n powder albuterol 2021-04 Yes 2 puff, Memor ia 90 mcg/inh 0-20 INHALATION l inhalation 15:46: , PRN Christ n powder 00 tadalafil 2021-04 Yes 10 mg, PO, Me moria 0-20 Daily l 15:45: Prevacid 2021-04 Yes PO, Daily Arturo daniela 0-20 l 15:45: tadalafil 2021-04 Yes 10 mg, PO, Me moria 0-20 Daily l 15:45: Prevacid 2021-04 Yes PO, Daily Arturo daniela 0-20 l 15:45: tadalafil 2021-04 Yes 10 mg, PO, Me moria 0-20 Daily l 15:45: Prevacid 2021-04 Yes PO, Daily Arturo daniela 0-20 l 15:45: tadalafil 2021-04 Yes 10 mg, PO, Me moria 0-20 Daily l 15:45: Prevacid 2021-04 Yes PO, Daily Arturo daniela 0-20 l 15:45: tadalafil 2021-04 Yes 10 mg, PO, Me moria 0-20 Daily l 15:45: Prevacid 2021-04 Yes PO, Daily Arturo daniela 0-20 l 15:45: tadalafil 2021-04 Yes 10 mg, PO, Me moria 0-20 Daily l 15:45: Prevacid 2021-04 Yes PO, Daily Arturo daniela 0-20 l 15:45: tadalafil 2021-04 Yes 10 mg, PO, Me moria 0-20 Daily l 15:45: Prevacid 2021-04 Yes PO, Daily Arturo daniela 0-20 l 15:45: tadalafil 2021-04 Yes 10 mg, PO, Me moria 0-20 Daily l 15:45: Prevacid 2021-04 Yes PO, Daily Arturo daniela 0-20 l 15:45: tadalafil 2021-04 Yes 10 mg, PO, Me moria 0-20 Daily l 15:45: Prevacid 2021-04 Yes PO, Daily Arturo daniela 0-20 l 15:45: tadalafil 2021-04 Yes 10 mg, PO, Me moria 0-20 Daily l 15:45: Prevacid 2021-04 Yes PO, Daily Arturo daniela 0-20 l 15:45: tadalafil 2021-04 Yes 10 mg, PO, Me moria 0-20 Daily l 15:45: Prevacid 2021-04 Yes PO, Daily Arturo daniela 0-20 l 15:45: tadalafil 2021-04 Yes 10 mg, PO, Me moria 0-20 Daily l 15:45: Prevacid 2021-04 Yes PO, Daily Arturo daniela 0-20 l 15:45: metFORMIN 2021-04 Yes 1,000 mg, Mem oria 0-20 PO, Daily l 15:44: allopurinol 2021-04 Yes 300 mg, Mem oria 0-20 PO, Daily l 15:44: metFORMIN 2021-04 Yes 1,000 mg, Mem oria 0-20 PO, Daily l 15:44: allopurinol 2021-04 Yes 300 mg, Mem oria 0-20 PO, Daily l 15:44: metFORMIN 2021-04 Yes 1,000 mg, Mem oria 0-20 PO, Daily l 15:44: allopurinol 2021-04 Yes 300 mg, Mem oria 0-20 PO, Daily l 15:44: metFORMIN 2021-04 Yes 1,000 mg, Mem oria 0-20 PO, Daily l 15:44: allopurinol 2021-04 Yes 300 mg, Mem oria 0-20 PO, Daily l 15:44: metFORMIN 2021-04 Yes 1,000 mg, Mem oria 0-20 PO, Daily l 15:44: allopurinol 2021-04 Yes 300 mg, Mem oria 0-20 PO, Daily l 15:44: metFORMIN 2021-04 Yes 1,000 mg, Mem oria 0-20 PO, Daily l 15:44: allopurinol 2021-04 Yes 300 mg, Mem oria 0-20 PO, Daily l 15:44: metFORMIN 2021-04 Yes 1,000 mg, Mem oria 0-20 PO, Daily l 15:44: allopurinol 2021-04 Yes 300 mg, Mem oria 0-20 PO, Daily l 15:44: metFORMIN 2021-04 Yes 1,000 mg, Mem oria 0-20 PO, Daily l 15:44: allopurinol 2021-04 Yes 300 mg, Mem oria 0-20 PO, Daily l 15:44: metFORMIN 2021-04 Yes 1,000 mg, Mem oria 0-20 PO, Daily l 15:44: allopurinol 2021-04 Yes 300 mg, Mem oria 0-20 PO, Daily l 15:44: metFORMIN 2021-04 Yes 1,000 mg, Mem oria 0-20 PO, Daily l 15:44: allopurinol 2021-04 Yes 300 mg, Mem oria 0-20 PO, Daily l 15:44: metFORMIN 2021-04 Yes 1,000 mg, Mem oria 0-20 PO, Daily l 15:44: allopurinol 2021-04 Yes 300 mg, Mem oria 0-20 PO, Daily l 15:44: metFORMIN 2021-04 Yes 1,000 mg, Mem oria 0-20 PO, Daily l 15:44: allopurinol 2021-04 Yes 300 mg, Mem oria 0-20 PO, Daily l 15:44: Depakote ER 2021-04 Yes 1,000 mg = Memoria 500 mg oral 0-20 2 tab, PO, l tablet, 15:43: Daily Umberto extended 00 release Depakote ER 2021-04 Yes 1,000 mg = Memoria 500 mg oral 0-20 2 tab, PO, l tablet, 15:43: Daily Umberto extended 00 release Depakote ER 2021-04 Yes 1,000 mg = Memoria 500 mg oral 0-20 2 tab, PO, l tablet, 15:43: Daily Umberto extended release Depakote ER 2021-04 Yes 1,000 mg = Memoria 500 mg oral 0-20 2 tab, PO, l tablet, 15:43: Daily [place] extended release Depakote ER 2021-04 Yes 1,000 mg = Memoria 500 mg oral 0-20 2 tab, PO, l tablet, 15:43: Daily [place] extended 00 release Depakote ER 2021-04 Yes 1,000 mg = Memoria 500 mg oral 0-20 2 tab, PO, l tablet, 15:43: Daily Umberto extended 00 release Depakote ER 2021-04 Yes 1,000 mg = Memoria 500 mg oral 0-20 2 tab, PO, l tablet, 15:43: Daily Umberto extended release Depakote ER 2021-04 Yes 1,000 mg = Memoria 500 mg oral 0-20 2 tab, PO, l tablet, 15:43: Daily [place] extended 00 release Depakote ER 2021-04 Yes 1,000 mg = Memoria 500 mg oral 0-20 2 tab, PO, l tablet, 15:43: Daily [place] extended 00 release Depakote ER 2021-04 Yes 1,000 mg = Memoria 500 mg oral 0-20 2 tab, PO, l tablet, 15:43: Daily [place] extended 00 release Depakote ER 2021-04 Yes 1,000 mg = Memoria 500 mg oral 0-20 2 tab, PO, l tablet, 15:43: Daily Umberto extended 00 release Depakote ER 2021-04 Yes 1,000 mg = Memoria 500 mg oral 0-20 2 tab, PO, l tablet, 15:43: Daily [place] extended 00 release lansoprazol 2021-04 Yes [facility] [...] 500 MG 00:00: 24 hr 00 tablet Immunizations Ordered Immunization Filled Immunization Date Status Commen ts Source Name Name Covid-19 Vaccine MRNA Unknown Completed [facility] ([facility] (Pfizer/BioNTech)(IMM 601) Covid-19 Vaccine MRNA Unknown Completed [facility] (Pfizer/BioNTech)(IMM 601) Covid-19 Vaccine MRNA Unknown Completed [facility] ([facility] (Pfizer/BioNTech)(IMM 601) Covid-19 Vaccine MRNA Unknown Completed [facility] ([facility] (Pfizer/BioNTech)(IMM 601) Covid-19 Vaccine MRNA Unknown Completed [facility] ([facility] (Pfizer/BioNTech)(IMM 601) Covid-19 Vaccine MRNA Unknown Completed [facility] ([facility] (Pfizer/BioNTech)(IMM 601) Covid-19 Vaccine MRNA Unknown Completed [facility] ([facility] (Pfizer/BioNTech)(IMM 601) Covid-19 Vaccine MRNA Unknown Completed [facility] ([facility] (Pfizer/BioNTech)(IMM 601) Vital Signs Vital Name Observation Time Observation Value Comments Source WEIGHT 2023-01-04 06:00:00 91.8 kg WEIGHT 2023-01-02 05:33:00 93.5 kg WEIGHT 2022-12-30 06:00:00 91.7 kg HEIGHT 2022-12-30 02:56:00 180.3 cm WEIGHT 2023-01-04 06:00:00 91.8 kg WEIGHT 2023-01-02 05:33:00 93.5 kg WEIGHT 2022-12-30 06:00:00 91.7 kg HEIGHT 2022-12-30 02:56:00 180.3 cm WEIGHT 2023-01-04 06:00:00 91.8 kg WEIGHT 2023-01-02 05:33:00 93.5 kg WEIGHT 2022-12-30 06:00:00 91.7 kg HEIGHT 2022-12-30 02:56:00 180.3 cm Body height 2022-01-22 18:52:00 177.8 cm [facility] Body weight 2022-01-22 18:52:00 90.719 kg [facility] BMI 2022-01-22 18:52:00 28.70 [facility] 2023-01-06 12:00:00 111 mm[Hg] [facility] Diastolic blood 2023-01-06 12:00:00 69 mm[Hg] [facility] Heart rate 2023-01-06 12:00:00 74 /min [facility] Body temperature 2023-01-06 12:00:00 36.56 [facility] Respiratory rate 2023-01-06 12:00:00 16 /min [facility] Oxygen saturation in 2023-01-06 12:00:00 97 /min [facility] Arterial blood by Medical Ce nter Pulse oximetry Systolic blood 2023-01-04 07:40:00 119 mm[Hg] [facility] Diastolic blood 2023-01-04 07:40:00 66 mm[Hg] [facility] Heart rate 2023-01-04 07:40:00 81 /min [facility] Body temperature 2023-01-04 07:40:00 36.39 Sharmin [facility] Respiratory rate 2023-01-04 07:40:00 18 /min [facility] Oxygen saturation in 2023-01-04 07:40:00 96 /min [facility] Arterial blood by Medical Ce nter Pulse oximetry Body weight 2023-01-04 06:00:00 91.8 kg [facility] BMI 2023-01-04 06:00:00 28.23 kg/m2 [facility] Oxygen saturation in 2023-01-01 06:06:00 94 /min [facility] Arterial blood by Medical Ce nter Pulse oximetry Systolic blood 2023-01-01 06:00:00 104 mm[Hg] [facility] Diastolic blood 2023-01-01 06:00:00 61 mm[Hg] [facility] Heart rate 2023-01-01 06:00:00 95 /min [facility] Respiratory rate 2023-01-01 06:00:00 11 /min [facility] Body temperature 2023-01-01 04:15:00 36.61 Sharmin [facility] Systolic blood 2022-12-31 07:00:00 104 mm[Hg] [facility] Diastolic blood 2022-12-31 07:00:00 61 mm[Hg] [facility] Heart rate 2022-12-31 07:00:00 89 /min [facility] Body temperature 2022-12-31 07:00:00 36.44 Sharmin [facility] Respiratory rate 2022-12-31 07:00:00 16 /min [facility] Oxygen saturation in 2022-12-31 07:00:00 93 /min [facility] Arterial blood by Medical Ce nter Pulse oximetry Body weight 2022-12-30 06:00:00 91.7 kg [facility] BMI 2022-12-30 06:00:00 28.20 kg/m2 [facility] Body height 2022-12-30 02:56:00 180.3 cm [facility] Systolic (mm Hg) 2022-02-02 22:00:00 Arturo rial Umberto Diastolic (mm Hg) 2022-02-02 22:00:00 Mem orial [place] Height 2022-02-01 15:40:00 5 [ft_i] Mikaela Shipman Weight 2022-02-01 15:40:00 Mikaela Shipman BMI Calculated 2022-02-01 15:40:00 Liudmila Patel Procedures Procedure Date / Time Performing Clinician Source Performed POCT-GLUCOSE METER 2023-01-06 Janet, [facility]inalini [facility] 13:25:00 [facility] CBC W/PLT COUNT & AUTO 2023-01-06 Janet, [facility]inalini [facility] DIFFERENTIAL 09:42:00 [facility] CBC W/PLT COUNT & AUTO 2023-01-06 Janet, Mrinalini [facility] DIFFERENTIAL 09:42:00 [facility] POCT-GLUCOSE METER 2023-01-05 Janet, Mrinalini [facility] 20:56:00 [facility] POCT-GLUCOSE METER 2023-01-05 Janet, Mrinalini [facility] 11:45:00 [facility] CBC W/PLT COUNT & AUTO 2023-01-05 Ali, Jesús [facility] DIFFERENTIAL 04:17:00 [facility] CBC W/PLT COUNT & AUTO 2023-01-05 Ali, Jesús [facility] DIFFERENTIAL 04:17:00 [facility] POCT-GLUCOSE METER 2023-01-04 Janet, Mrinalini [facility] 20:33:00 [facility] MR ABDOMEN WITH & WITHOUT IV 2023-01-04 Obdulio, Mark [facility] CONTRAST 14:19:56 [facility] POCT-GLUCOSE METER 2023-01-04 Janet, Mrinalini [facility] 11:52:00 [facility] POCT-GLUCOSE METER 2023-01-04 Janet, Mrinalini [facility] 05:56:00 [facility] CBC W/PLT COUNT & AUTO 2023-01-04 Ali, Jesús [facility] DIFFERENTIAL 03:45:00 [facility] CBC W/PLT COUNT & AUTO 2023-01-04 Ali, Jesús [facility] DIFFERENTIAL 03:45:00 [facility] REPORT OF PROCEDURE - ENDOSCOPY 2023-01-[address] [facility] URL 16:08:37 [facility] EGD, WITH VARICEAL BANDING 2023-01-03 Marques Lynch [facility] 15:42:00 Medical Center TYPE AND SCREEN, AUTOMATED 2023-01-03 Marques Lynch [facility] 09:57:00 [facility] XR ABDOMEN/KUB 1 VIEW PORTABLE 2023-01-[address] [facility] 09:28:00 [facility] CBC W/PLT COUNT & AUTO 2023-01-03 Ali, Jesús [facility] DIFFERENTIAL 05:36:00 [facility] CBC W/PLT COUNT & AUTO 2023-01-03 Ali, Jesús [facility] DIFFERENTIAL 05:36:00 [facility] (CELLAVISION MANUAL DIFF) 2023-01-03 Ali, Jesús [facility] 05:36:00 [facility] CBC W/PLT COUNT & AUTO 2023-01-02 Ali, Jesús [facility] DIFFERENTIAL 11:53:00 [facility] CBC W/PLT COUNT & AUTO 2023-01-02 Ali, Jesús [facility] kes DIFFERENTIAL 11:53:00 [facility] (CELLAVISION MANUAL DIFF) 2023-01-02 Ali, Jesús [facility] 11:53:00 [facility] XR ABDOMEN/KUB 1 VIEW PORTABLE 2023-01-02 Janet Shawanda ni [facility] 11:25:00 [facility] POCT-GLUCOSE METER 2023-01-02 Janet, Mrinalini [facility] 06:44:00 [facility] POCT-GLUCOSE METER 2023-01-02 Janet, Mrinalini [facility] 00:25:00 [facility] CT CHEST WITHOUT IV CONTRAST 2023-01-[address] [facility] 10:14:33 [facility] IMAGING PROCEDURE, GI TRACT, 2023-01-[address] [facility] INTRALUMINAL, VIA CAPSULE 09:12:00 [facility] IMAGING PROCEDURE, GI TRACT, 2023-01-[address] [facility] INTRALUMINAL, VIA CAPSULE 08:00:00 [facility] POCT-GLUCOSE METER 2023-01-[address] [facility] 06:13:00 [facility] CBC W/PLT COUNT & AUTO 2023-01-01 Cristofer, Ramneek [facility] DIFFERENTIAL 04:28:00 [facility] BILIRUBIN, TOTAL AND DIRECT 2023-01-01 Erwin Smith [facility] 04:28:00 [facility] CBC W/PLT COUNT & AUTO 2023-01-01 Cristofer, Ramneek [facility] DIFFERENTIAL 04:28:00 [facility] URIC ACID 2023-01-[address] [facility] 04:28:00 [facility] PREPARE LEUKO-REDUCED RBC 2022-12-[address] [facility] 23:55:00 [facility] URIC ACID 2022-12-[address] [facility] 23:45:00 [facility] POCT-GLUCOSE METER 2022-12-31 Youn[address]ochelle buttsmanisha [facility] 23:17:00 [facility] CBC (HEMOGRAM ONLY) 2022-12-[address] [facility] 23:15:00 [facility] CBC (HEMOGRAM ONLY) 2022-12-[address] [facility] 18:01:00 [facility] BILIRUBIN, TOTAL AND DIRECT 2022-12-31 [address] [facility] 16:34:00 [facility] REPORT OF PROCEDURE - ENDOSCOPY 2022-12-31 Provider, Jn morocho [facility] URL 15:35:49 Scanning [facility] COLONOSCOPY 2022-12-[address] [facility] 14:46:00 [facility] COLONOSCOPY 2022-12-[address] [facility] 13:56:00 [facility] POCT-GLUCOSE METER 2022-12-[address] [facility] 12:03:00 [facility] CBC (HEMOGRAM ONLY) 2022-12-[address] [facility] 09:50:00 [facility] CBC W/PLT COUNT & AUTO 2022-12-31 Cristofer, Ramneek [facility] DIFFERENTIAL 02:54:00 [facility] AST (SGOT) 2022-12-[address] [facility] 02:54:00 [facility] ALT (SGPT) 2022-12-[address] [facility] 02:54:00 [facility] BASIC METABOLIC PANEL 2022-12-31 [facility], Eboni [facility] 02:54:00 [facility] MAGNESIUM 2022-12-31 Pittard, Eboni [facility] 02:54:00 [facility] PHOSPHORUS 2022-12-31 [facility], Eboni [facility] 02:54:00 [facility] CALCIUM, IONIZED 2022-12-31 [facility], Eboni [facility] 02:54:00 [facility] PROTHROMBIN TIME/INR 2022-12-31 [facility] Eboni [facility] 02:54:00 [facility] APTT 2022-12-31 [facility], Eboni [facility] 02:54:00 [facility] CBC W/PLT COUNT & AUTO 2022-12-[address] [facility] DIFFERENTIAL 02:54:00 [facility] CBC (HEMOGRAM ONLY) 2022-12-[address] [facility] 23:35:00 [facility] POCT-GLUCOSE METER 2022-12-30 [place] [facility] 23:34:00 [facility] XR LUMBAR SPINE 2 OR 3 VIEWS 2022-12-[address] [facility] 21:02:00 [facility] US DOPPLER 2022-12-[address] [facility] 19:30:00 [facility] US ABDOMEN LIMITED 2022-12-[address] [facility] 19:30[facility]00 [facility] POCT-GLUCOSE METER 2022-12-[address] [facility] 18:40:00 [facility] CBC (HEMOGRAM ONLY) 2022-12-[address] [facility] 16:51:00 [facility] REPORT OF PROCEDURE - ENDOSCOPY 2022-12-30 Provider, Jn morocho [facility] URL 13:49:28 Scanning [facility] TRANSFUSE LEUKO-REDUCED RED BLOOD 2022-12-[address] [facility] CELLS 11:45:00 [facility] PREPARE LEUKO-REDUCED RBC 2022-12-[address] [facility] 11:23:00 [facility] POCT-GLUCOSE METER 2022-12-30 [facility] 11:19:00 [facility] EGD (ESOPHAGOGASTRODUODENOSCOPY) 2022-12-[address] [facility] 09:53:00 [facility] CBC (HEMOGRAM ONLY) 2022-12-30 Melchor Griselangela Coulterbenjamíngarland [facility] 09:53:00 [facility] POCT-GLUCOSE METER 2022-12-30 [facility], [facility] 06:15:00 [facility] TRANSFUSE LEUKO-REDUCED RED BLOOD 2022-12-30 Constantino Looney hmed [facility] CELLS 05:50:00 [facility] PREPARE LEUKO-REDUCED RBC 2022-12-[address] [facility] 05:43:00 [facility] COMPREHENSIVE METABOLIC PANEL 2022-12-[address] [facility] 03:28:00 [facility] CBC W/PLT COUNT & AUTO 2022-12-30 Cristofer, Ramneek [facility] DIFFERENTIAL 03:28:00 [facility] MAGNESIUM 2022-12-30 Valdemar Madera, [facility] 03:28:00 [facility] PHOSPHORUS 2022-12-30 Valdemar Madera, [facility] 03:28:00 [facility] CBC W/PLT COUNT & AUTO 2022-12-30 Cristofer, Ramneek [facility] DIFFERENTIAL 03:28:00 [facility] ABORH, MANUAL 2022-12-[address] [facility] 00:08:00 [facility] POCT-GLUCOSE METER 2022-12-30 Valdemar Madera, [facility] 00:07:00 [facility] PROTHROMBIN TIME/INR 2022-12-[address] [facility] 23:30:00 [facility] APTT 2022-12-[address] [facility] 23:30:00 Medical Center TYPE AND SCREEN, AUTOMATED 2022-12-29 Annelise Cleveland [facility] 23[facility]30:00 [facility] Center EKG-SCANNED 2022-12-29 Provider, Default [facility] 00:00:[address] [facility] Ureteroscopy [facility] Bronchoscopy [facility] EGD - Esophagogastroduodenoscopy [facility] Colonoscopy [facility] Cholecystectomy [facility] ESWL of kidney [facility] Plan of Care Planned Activity Planned Date Details Comments Source Future Scheduled 2034 Pneumococcal Vaccine: [facility] 00:00:00 0-64 Years (3 - PPSV23 if Me dical Center available, else PCV20) [code = Pneumococcal Vaccine: 0-64 Years (3 - PPSV23 if available, else PCV20)] Future Scheduled 2034 Pneumococcal Vaccine: [facility] 00:00:00 0-64 Years (3 - PPSV23 if Me dical Center available, else PCV20) [code = Pneumococcal Vaccine: 0-64 Years (3 - PPSV23 if available, else PCV20)] Future Scheduled 2034 Pneumococcal Vaccine: [facility] 00:00:00 0-64 Years (3 - PPSV23 if Me dical Center available, else PCV20) [code = Pneumococcal Vaccine: 0-64 Years (3 - PPSV23 if available, else PCV20)] Future Scheduled 2034 Pneumococcal Vaccine: [facility] 00:00:00 0-64 Years (3 - PPSV23 if Me dical Center available, else PCV20) [code = Pneumococcal Vaccine: 0-64 Years (3 - PPSV23 if available, else PCV20)] Future Scheduled 2034 Pneumococcal Vaccine: [facility] 00:00:00 0-64 Years (3 - PPSV23 if Me dical Center available, else PCV20) [code = Pneumococcal Vaccine: 0-64 Years (3 - PPSV23 if available, else PCV20)] Future Scheduled 2034 Pneumococcal Vaccine: [facility] 00:00:00 0-64 Years (3 - PPSV23 if Me dical Center available, else PCV20) [code = Pneumococcal Vaccine: 0-64 Years (3 - PPSV23 if available, else PCV20)] Future Scheduled 2032-12-31 Screening for malignant [facility] 00:00:00 neoplasm of colon Medical Ce nter (procedure) [code = 583685167] Future Scheduled 2032-12-31 Screening for malignant [facility] Test 00:00:00 neoplasm of colon Medical Ce nter (procedure) [code = 458891847] Future Scheduled 2032-12-31 Screening for malignant [facility] Test 00:00:00 neoplasm of colon Medical Ce nter (procedure) [code = 069993754] Future Scheduled 2032-12-31 Screening for malignant [facility] Test 00:00:00 neoplasm of colon Medical Ce nter (procedure) [code = 782124044] Future Scheduled 2032-12-31 Screening for malignant [facility] Test 00:00:00 neoplasm of colon Medical Ce nter (procedure) [code = 447456244] Future Scheduled 2032-12-31 Screening for malignant [facility] Test 00:00:00 neoplasm of colon Medical Ce nter (procedure) [code = 643241622] Future Scheduled 2032-12-31 Screening for malignant [facility] Test 00:00:00 neoplasm of colon Medical Ce nter (procedure) [code = 048624450] Future Scheduled 2032-12-31 Screening for malignant [facility] Test 00:00:00 neoplasm of colon Medical Ce nter (procedure) [code = 129927833] Future Scheduled 2032-12-31 Screening for malignant [facility] Test 00:00:00 neoplasm of colon Medical Ce nter (procedure) [code = 917374423] Future Scheduled 2032-12-31 Screening for malignant [facility] Test 00:00:00 neoplasm of colon Medical Ce nter (procedure) [code = 895612270] Future Scheduled 2023-12-[address] [facility] Test 00:00:00 Counseling and Screening [facility] (12+) [code = Tobacco Cessation Counseling and Screening (12+)] Future Scheduled 2023-12-[address] [facility] Test 00:00:00 Counseling and Screening Med [facility] (12+) [code = Tobacco Cessation Counseling and Screening (12+)] Future Scheduled 2023-12-[address] [facility] Test 00:00:00 Counseling and Screening Med ical Center (12+) [code = Tobacco Cessation Counseling and Screening (12+)] Future Scheduled 2023-12-[address] [facility] Test 00:00:00 Counseling and Screening Med ical Center (12+) [code = Tobacco Cessation Counseling and Screening (12+)] Future Scheduled 2023-12-[address] [facility] Test 00:00:00 Counseling and Screening Med ical Center (12+) [code = Tobacco Cessation Counseling and Screening (12+)] Future Scheduled 2023-12-[address] [facility] 00:00:00 Counseling and Screening Med ical Center (12+) [code = Tobacco Cessation Counseling and Screening (12+)] Future Scheduled 2023-12-[address] [facility] 00:00:00 Counseling and Screening Med ical Center (12+) [code = Tobacco Cessation Counseling and Screening (12+)] Future Scheduled 2023-04-15 DTAP/TDAP/TD VACCINES ([address] [facility] 00:00:00 - Td or Tdap) [code = Medica l Center DTAP/TDAP/TD VACCINES (2 - Td or Tdap)] Future Scheduled 2023-04-15 DTAP/TDAP/TD VACCINES ([address] [facility] 00:00:00 - Td or Tdap) [code = Medica l Center DTAP/TDAP/TD VACCINES (2 - Td or Tdap)] Future Scheduled 2023-04-15 DTAP/TDAP/TD VACCINES ([address] [facility] 00:00:00 - Td or Tdap) [code = Medica l Center DTAP/TDAP/TD VACCINES (2 - Td or Tdap)] Future Scheduled 2023-04-15 DTAP/TDAP/TD VACCINES ([address] [facility] 00:00:00 - Td or Tdap) [code = Medica l Center DTAP/TDAP/TD VACCINES (2 - Td or Tdap)] Future Scheduled 2023-04-15 DTAP/TDAP/TD VACCINES ([address] [facility] 00:00:00 - Td or Tdap) [code = Medica l Center DTAP/TDAP/TD VACCINES (2 - Td or Tdap)] Future Scheduled 2023-04-15 DTAP/TDAP/TD VACCINES ([address] [facility] 00:00:00 - Td or Tdap) [code = Medica l Center DTAP/TDAP/TD VACCINES (2 - Td or Tdap)] Future Scheduled 2023-04-15 DTAP/TDAP/TD VACCINES ([address] [facility] 00:00:00 - Td or Tdap) [code = Medica l Center DTAP/TDAP/TD VACCINES (2 - Td or Tdap)] Future Scheduled 2022-12-[address] [facility] 00:[facility]:00 measurement (procedure) [facility] [code = [id number]] Future Scheduled 2022-12-[address] [facility] 00:00:00 measurement (procedure) [facility] [code = 28162489] Future Scheduled 2022-12-[address] [facility] 00:00:00 measurement (procedure) [facility] [code = 28924791] Future Scheduled 2022-12-[address] [facility] 00:00:00 measurement (procedure) [facility] [code = 41166861] Future Scheduled 2022-12-[address] [facility] 00:00:00 measurement (procedure) [facility] [code = 45937292] Future Scheduled 2022-12-[address] [facility] 00:00:00 measurement (procedure) [facility] Center [code = 37580316] Future Scheduled 2022-12-14 Influenza Vaccine (#1) [facility]00 [code = Influenza Vaccine Me dical Center (#1)] Future Scheduled 2022-12-14 Influenza Vaccine (#1) [facility] 00:00:00 [code = Influenza Vaccine Me dical Center (#1)] Future Scheduled 2022-12-14 Influenza Vaccine (#1) [facility] 00:00:00 [code = Influenza Vaccine Me dical Center (#1)] Future Scheduled 2022-12-14 Influenza Vaccine (#1) [facility] 00:00:00 [code = Influenza Vaccine Me dical Center (#1)] Future Scheduled 2022-12-14 Influenza Vaccine (#1) [facility] 00:00:00 [code = Influenza Vaccine Me dical Center (#1)] Future Scheduled 2022-12-14 Influenza Vaccine (#1) [facility] 00:00:00 [code = Influenza Vaccine Me dical Center (#1)] Future Scheduled 2022-12-14 Influenza Vaccine (#1) [facility] 00:00:00 [code = Influenza Vaccine Me dical Center (#1)] Future Scheduled 2022-04-[address] [facility] 00:00:00 (12+) [code = DEPRESSION Med ical Center SCREENING (12+)] Future Scheduled 2022-04-[address] [facility] 00:00:00 (12+) [code = DEPRESSION Med ical Center SCREENING (12+)] Future Scheduled 2022-04-[address] [facility] 00:00:00 (12+) [code = DEPRESSION Med ical Center SCREENING (12+)] Future Scheduled 2022-04-[address] [facility] 00:00:00 (12+) [code = DEPRESSION Med ical Center SCREENING (12+)] Future Scheduled 2022-04-[address] [facility] 00:00:00 (12+) [code = DEPRESSION Med ical Center SCREENING (12+)] Future Scheduled 2022-04-[address] [facility] 00:00:00 (12+) [code = DEPRESSION Med ical Center SCREENING (12+)] Future Scheduled 2022-04-[address] [facility] 00:00:00 (12+) [code = DEPRESSION Med ical Center SCREENING (12+)] Future Scheduled 2020-08-29 COVID-19 VACCINE (3 - [facility]:00 Booster for Pfizer Medical C enter series) [code = COVID-19 VACCINE (3 - Booster for Pfizer series)] Future Scheduled 2020-08-29 COVID-19 VACCINE (3 - [facility] 00:[facility]:00 Booster for Pfizer Medical C enter series) [code = COVID-19 VACCINE (3 - Booster for Pfizer series)] Future Scheduled 2020-08-29 COVID-19 VACCINE (3 - [facility] 00:00:00 Booster for Pfizer Medical C enter series) [code = COVID-19 VACCINE (3 - Booster for Pfizer series)] Future Scheduled 2020-08-29 COVID-19 VACCINE (3 - [facility] 00:00:00 Booster for Pfizer Medical C enter series) [code = COVID-19 VACCINE (3 - Booster for Pfizer series)] Future Scheduled 2020-08-29 COVID-19 VACCINE (3 - [facility] 00:00:00 Booster for Pfizer Medical C enter series) [code = COVID-19 VACCINE (3 - Booster for Pfizer series)] Future Scheduled 2020-08-29 COVID-19 VACCINE (3 - [facility] 00:00:00 Booster for Pfizer Medical C enter series) [code = COVID-19 VACCINE (3 - Booster for Pfizer series)] Future Scheduled 2020-08-29 COVID-19 VACCINE (3 - [facility] 00:00:00 Booster for Pfizer Medical C enter series) [code = COVID-19 VACCINE (3 - Booster for Pfizer series)] Future Scheduled 2019-06-19 SHINGLES VACCINES ([address] [facility] 00:00:00 2) [code = SHINGLES Medical Center VACCINES (1 of 2)] Future Scheduled 2019-06-19 SHINGLES VACCINES ([address] [facility] 00:00:00 2) [code = SHINGLES Medical Center VACCINES (1 of 2)] Future Scheduled 2019-06-19 SHINGLES VACCINES ([address] [facility] 00:00:00 2) [code = SHINGLES Medical Center VACCINES (1 of 2)] Future Scheduled 2019-06-19 SHINGLES VACCINES ([address] [facility] 00:00:00 2) [code = SHINGLES Medical Center VACCINES (1 of 2)] Future Scheduled 2019-06-19 SHINGLES VACCINES ([address] [facility] 00:00:00 2) [code = SHINGLES Medical Center VACCINES (1 of 2)] Future Scheduled 2019-06-19 SHINGLES VACCINES ([address] [facility] 00:00:00 2) [code = SHINGLES Medical Center VACCINES (1 of 2)] Future Scheduled 2019-06-19 SHINGLES VACCINES ([address] [facility] 00:00:00 2) [code = SHINGLES Medical Center VACCINES (1 of 2)] Future Scheduled 2004 Lipid panel (procedure) [facility] 00:00:00 [code = 23253519] Medical Ce nter Future Scheduled 2004 Lipid panel (procedure) [facility] 00:00:00 [code = 83195148] Medical Ce nter Future Scheduled 2004 Lipid panel (procedure) [facility] 00:00:00 [code = 98636163] Medical Ce nter Future Scheduled 2004 Lipid panel (procedure) [facility] 00:00:00 [code = 70059527] Medical Ce nter Future Scheduled 2004 Lipid panel (procedure) [facility] 00:00:00 [code = 28145617] Medical Ce nter Future Scheduled 2004 Lipid panel (procedure) [facility] 00:00:00 [code = 38533631] Medical Ce nter Future Scheduled 2004 Lipid panel (procedure) [facility] 00:00:00 [code = 47574748] Medical Ce nter Future Scheduled 1987-06-19 HEPATITIS C SCREENING [facility]:00:00 [code = HEPATITIS C Medical Center SCREENING] Future Scheduled 1987-06-19 HEPATITIS C SCREENING [facility] 00:00:00 [code = HEPATITIS C Medical Center SCREENING] Future Scheduled 1987-06-19 HEPATITIS C SCREENING [facility] 00:00:00 [code = HEPATITIS C Medical Center SCREENING] Future Scheduled 1987-06-19 HEPATITIS C [facility]CREENING [facility] 00:00:00 [code = HEPATITIS C Medical Center SCREENING] Future Scheduled 1987-06-19 HEPATITIS C [facility]CRE[facility]ING [facility] 00:00:00 [code = HEPATITIS C Medical Center SCREENING] Future Scheduled 1987-06-19 HEPATITIS C [facility]CRE[facility]ING [facility] 00:00:00 [code = HEPATITIS C Medical Center SCREENING] Future Scheduled 1987-06-19 HEPATITIS C [facility]CREENING [facility] 00:00:00 [code = HEPATITIS C Medical Center SCREENING] Future Scheduled [address] [facility] 00:[facility]:00 virus screening Medical Cent er (procedure) [code = 235730862] Future Scheduled [address] [facility] 00:00:00 virus screening Medical Cent er (procedure) [code = 712410630] Future Scheduled [address] [facility] 00:00:00 virus screening [facility] Cent er (procedure) [code = 953186832] Future Scheduled [address] [facility] 00:00:00 virus screening Medical Cent er (procedure) [code = 054473510] Future Scheduled [address] [facility] 00:00:00 virus screening [facility] Cent er (procedure) [code = 986078806] Future Scheduled [address] [facility] 00:00:00 virus screening Medical Cent er (procedure) [code = 473525083] Future Scheduled [address] [facility] 00:00:00 virus screening Medical Cent er (procedure) [code = 868963645] Future Scheduled 1979-06-19 DIABETIC EYE EXAM [code = [facility] 00:00:00 DIABETIC EYE EXAM] Medical C enter Future Scheduled 1979-06-19 Diabetic foot examination [facility] 00:00:00 (regime/therapy) [code = [facility] 031712126] Future Scheduled 1979-06-19 Urine screening for [facility] 00:00:00 protein (procedure) [code [facility] = 289544315] Future Scheduled 1979-06-19 DIABETIC EYE EXAM [code = [facility] 00:00:00 DIABETIC EYE EXAM] Medical C enter Future Scheduled 1979-06-19 Diabetic foot examination [facility] 00:00:00 (regime/therapy) [code = [facility] 243696776] Future Scheduled 1979-06-19 Urine screening for [facility] 00:00:00 protein (procedure) [code [facility] = 105800637] Future Scheduled 1979-06-19 DIABETIC EYE EXAM [code = [facility] 00:00:00 DIABETIC EYE EXAM] Medical C enter Future Scheduled 1979-06-19 Diabetic foot examination [facility] 00:00:00 (regime/therapy) [code = [facility] 643371906] Future Scheduled 1979-06-19 Urine screening for [facility] 00:00:00 [facility] (procedure) [facility] 7[facility] Future Scheduled 1979-06-19 DIABETIC EYE EXAM [code = [facility] 00:00:00 DIABETIC EYE EXAM] Medical C enter Future Scheduled 1979-06-19 Diabetic foot examination [facility] 00:00:00 [facility]ime[facility]therapy) [facility] Future Scheduled 1979-06-19 Urine screening for [facility] 00:00:00 protein (procedure) [facility] 5599437[facility] Future Scheduled 1979-06-19 DIABETIC EYE EXAM [code = [facility] 00:00:00 DIABETIC EYE EXAM] Medical C enter Future Scheduled 1979-06-19 Diabetic foot examination [facility] 00:00:00 (regime/therapy) [code = [facility] 075799936] Future Scheduled 1979-06-19 Urine screening for [facility] 00:00:00 protein (procedure) [facility] 166570[facility] Future Scheduled 1979-06-19 DIABETIC EYE EXAM [code = [facility] 00:00:00 DIABETIC EYE EXAM] Medical C enter Future Scheduled 1979-06-19 Diabetic foot examination [facility] 00:00:00 (regime/therapy) [code = [facility] 365705027] Future Scheduled 1979-06-19 Urine screening for [facility] 00:00:00 protein (procedure) [facility] 151399129] Future Scheduled 1969 CT Colonography (combo) [facility] 00:00:00 [code = CT Colonography [facility] (combo)] Future Scheduled 1969 Screening for malignant [facility] 00:00:00 neoplasm of colon Medical Ce nter (procedure) [code = 296759680] Future Scheduled 1969 Screening for malignant [facility] 00:00:00 neoplasm of colon Medical Ce nter (procedure) [code = 557934264] Future Scheduled 1969 Screening for malignant [facility] 00:00:00 neoplasm of colon Medical Ce nter (procedure) [code = 421928009] Future Scheduled 1969 Screening for malignant [facility] 00:00:00 neoplasm of colon Medical Ce nter (procedure) [code = 664220888] Future Scheduled 1969 Sigmoidoscopy [code = [facility] Sigmoidoscopy] Medical Cente r Future Scheduled 1969 CT Colonography (combo) [facility] 00:00:00 [code = CT Colonography [facility] (combo)] Future Scheduled 1969 Screening for malignant [facility] 00:00:00 neoplasm of colon Medical Ce nter (procedure) [code = 176762065] Future Scheduled 1969 Screening for malignant [facility] 00:00:00 neoplasm of colon Medical Ce nter (procedure) [code = 355881164] Future Scheduled 1969 Screening for malignant [facility] 00:00:00 neoplasm of colon Medical Ce nter (procedure) [code = 733293347] Future Scheduled 1969 Screening for malignant [facility] 00:00:00 neoplasm of colon Medical Ce nter (procedure) [code = 586927883] Future Scheduled 1969 Sigmoidoscopy [code = [facility] 00:[facility] Sigmoidoscopy] Medical Cente r Future Scheduled 1969 CT Colonography (combo) [facility] 00:00:00 [code = CT Colonography [facility] (combo)] Future Scheduled 1969 Screening for malignant [facility] 00:00:00 neoplasm of colon Medical Ce nter (procedure) [code = 613662787] Future Scheduled 1969 Screening for malignant [facility] 00:00:00 neoplasm of colon Medical Ce nter (procedure) [code = 562252224] Future Scheduled 1969 S[facility]oid[facility]code [facility]] Medical Cent[facility] r Future Scheduled 1969 CT Colonography (combo) [facility] 00:[facility] [code = CT Colonography [facility] (combo)] Future Scheduled 1969 Screening for malignant [facility] 00:00:00 neoplasm of colon Medical Ce nter (procedure) [code = 997161520] Future Scheduled 1969 Screening for malignant [facility] 00:00:00 neoplasm of colon Medical Ce nter (procedure) [code = 204357127] Future Scheduled 1970 Sigmoidoscopy [facility]code = [facility] S[facility]oscopy] Medical Cente r Future Scheduled 1969 CT Colonography (combo) [facility] 00:00:00 [code = CT Colonography [facility] (combo)] Future Scheduled 1969 Screening for malignant [facility] 00:00:00 neoplasm of colon Medical Ce nter (procedure) [code = 095935137] Future Scheduled 1969 Screening for malignant [facility] 00:00:00 neoplasm of colon Medical Ce nter (procedure) [code = 092000154] Future Scheduled 1970 Sigmoidoscopy [facility]code = [facility]oscopy] Medical Cente r Future Scheduled 1969 CT Colonography (combo) [facility] 00:00:00 [code = CT Colonography [facility] (combo)] Future Scheduled 1969 Screening for malignant [facility] 00:00:00 neoplasm of colon Medical Ce nter (procedure) [code = 833807516] Future Scheduled 1969 Screening for malignant [facility] 00:00:00 neoplasm of colon Medical Ce nter (procedure) [code = 685570445] Future Scheduled 1970 Sigmoidoscopy [facility]code = [facility] S[facility]oidoscopy] Medical Cente r Future Scheduled 1969 CT Colonography (combo) [facility] 00:00:00 [code = CT Colonography [facility] (combo)] Future Scheduled 1969 Screening for malignant [facility] 00:00:00 neoplasm of colon Medical Ce nter (procedure) [code = 206421800] Future Scheduled 1969 Screening for malignant [facility] 00:00:00 neoplasm of colon Medical Ce nter (procedure) [code = 803024521] Future Scheduled 1970 Sigmoidoscopy [code = [facility] S[facility]oidoscopy] Medical Cente r Future Appointment 2023-02-04 Marques Lynch MD, [address] [facility] 11:00:00 Gilbert; Marty [address], [place] [address] Future Appointment 2023-02-04 Marques Lynch MD, [address] [facility] 11:00:00 Gilbert; Marty [address]B, [place] [address] Procedure 2023-02-[address] [facility] 11:00:00 (ESOPHAGOGASTRODUODENOSCO [facility]) Encounters Start End Encounter Admission Attending Care Care Encounter Source Date/Time Date/Time Type Type Clinicians Facility Department ID 2023-01-18 [id number] 08:44:13 MARQUES 2023-01-04 Inpatient ER OBDULIO, SLE SLE [id number] [facility] 13:13:39 MARK 2023-01-03 Inpatient ER SYED SLE SLE [id number] [facility] 09:08:38 MARQUES 2023-01-02 Inpatient ER JANET SLE SLE [id number] [facility] 11:10:27 MRINALINI 2022-12-30 Inpatient ER JOHANNY, SLE [facility] [id number] [facility] 20:39:51 EBONI 2022-12-30 Inpatient ER GRISEL ROCHE SLE SLE [id number] [facility] 18:28:48 2022-10-01 Outpatient [facility] [id number] [place] 10:24:56 [id number] [facility] 2022-09-21 Outpatient [facility] [id number] [place] 14:52:57 [id number] [facility] 2022-06-19 Outpatient [facility] [id number] [place] 09:08:12 [id number] [facility] 2022-06-08 Outpatient [facility] [id number] [place] 04:20:03 [id number] [facility] 2022-05-16 Outpatient [facility] [id number] [place] 11:58:17 [id number] [facility] 2022-02-19 Outpatient [facility] [id number] [place] 13:47:11 [id number] [facility] 2022-02-05 Outpatient [facility] [id number] [place] 14:35:48 [id number] [facility] 2022-02-01 Outpatient [facility] [id number] [place] 10:28:10 [id number] [facility] 2022-01-23 Outpatient [facility] [id number] [place] 04:00:35 [id number] [facility] 2022-01-22 Outpatient [facility] [id number] [place] 12:12:48 [id number] [facility] 2022-01-20 Outpatient [facility] [id number] UT 10:25:01 [id number] [facility] 2022-01-17 Outpatient [facility] [id number] UT 11:48:32 [id number] [facility] 2023-01-15 2023-01-[address] [facility] [id number] [facility] 00[facility]00 Only [facility] 2023-01-15 2023-01-[address] [facility] [id number] 00:[facility] 00:00:00 Only [facility] 2022-12-29 2023-01-06 Inpatient ER MELISSA GONZALES Neurology [id number] [facility] 22:02:00 18:16:00 [facility] 2022-12-29 2023-01-06 [place] [facility] [id number] [facility] 22:02:00 18:16:00 [facility]22-12-29 2023-01-06 [facility] Vishnu Madera [facility] [id number] [facility] 22:02:00 18:16:00 Encounter [facility] 2023-01-03 2023-01-[address] [facility] [id number] 15:50:00 16:50:00 [facility] 2023-01-03 2023-01-[address] [facility] [id number] 15:50:00 16:50:00 [facility] 2023-01-03 2023-01-[address] [facility] [id number] 15:43:00 16:06:00 Event [facility] 2023-01-03 2023-01-[address] [facility] [id number] 15:43:00 16:06:00 Event [facility] 2023-01-01 2023-01-[address] [facility] [id number] 08:00:00 09:00:00 [facility] 2023-01-01 2023-01-[address] [facility] [id number] 08:00:00 09:00:00 [facility] 2023-01-01 2023-01-[address] [facility] [id number] 08:00:00 08:00:00 Event [facility] 2023-01-01 2023-01-01 Inpatient ER JANET, [facility] SLEH [id number] [facility] 09:59:37 00:00:00 MRINALINI 2022-12-31 2022-12-31 [facility] [id number] 14:46:00 15:47:00 Event Manish [facility] 2022-12-31 2022-12-31 Anesthesia Quan Juan Manuelbright Carolina [facility] [id number] 14:46:00 15:47:00 Event Manish [facility] 2022-12-31 2022-12-[address] [facility] [id number] 14:30:00 15:44:00 [facility] 2022-12-31 2022-12-[address] [facility] [id number] 14:30:00 15:44:00 [facility] 2022-12-30 2022-12-[address] [facility] [id number] 12:39:00 13:26:00 Event Jina [facility] 2022-12-30 2022-12-[address] [facility] [id number] 12:39:00 13:26:00 Event Jina [facility] 2022-12-30 2022-12-[address] [facility] [id number] 09:53:00 10:53:00 [facility] 2022-12-30 2022-12-30 [id number] 09:53:00 10:53:00 [facility] 2022-12-30 2022-12-30 Travel [facility] [id number] [facility] 00:00:00 00:00:00 [facility] 2022-12-30 2022-12-30 Travel [facility] [id number] [facility] 00:00:00 00:00:00 [facility] 2022-02-19 2022-02-19 Outpatient [facility] [id number] [place] 11:15:00 11:58:57 [facility] 2022-02-19 2022-02-19 Outpatient [facility] [id number] [place] 11:15:00 11:58:37 [facility] 2022-02-02 2022-02-02 [facility] [id number] Memoria 11:40:00 22:10:00 Surgery r [place] 00 [facility] 2022-02-02 2022-02-02 [facility] [id number] Memoria 11:40:00 22:10:00 Surgery r [place] 00 [facility] 2022-02-02 2022-02-02 Outpatient [facility] [id number] [facility] 06:40:00 17:10:00 [facility] 2022-02-02 2022-02-02 Outpatient Hu, [id number] 06:40:00 17:10:00 Prachi Marleen.019494. [id number] Wolf [id number] 2022-02-02 2022-02-02 Outpatient HU [facility] [id number] UT 12:45:00 12:45:00 PRACHI [facility] 2022-01-22 2022-01-22 Outpatient [facility] [id number] UT 13:30:00 15:12:30 [facility] 2022-01-22 2022-01-22 Office Hu [facility] [id number] UT 13:30:00 14:32:09 Visit Prachi CHANEY [id number] [facility] [id number] [address] [id number] 2021-02-07 2021-02-07 Ambulatory nullFlavo MNA [id number] Memoria 21:00:00 21:00:00 Pre-Reg r Neurology 01 l [place] 2021-02-07 2021-02-07 Ambulatory nullFlavo MNA [id number] Memoria 21:00:00 21:00:00 Pre-Reg r Neurology 01 l [place] 2021-02-07 2021-02-07 Outpatient MHIE MHIE [id number] Memoria 16:00:00 16:00:00 01 raymond [place] 2021-02-07 2021-02-07 Outpatient MERCED Marcano [id number] 16:00:00 16:00:00 Aldo Romero 2021-02-03 2021-02-03 Ambulatory nullFlavo MNA [id number] Memoria 14:00:00 14:00:00 Pre-Reg r Neurology 00 l [place] 2021-02-03 2021-02-03 Ambulatory nullFlavo MNA [id number] Memoria 14:00:00 14:00:00 Pre-Reg r Neurology 00 l [place] 2021-02-03 2021-02-03 Outpatient MHIE MHIE [id number] Memoria 09:00:00 09:00:00 00 raymond [place] 2021-02-03 2021-02-03 Outpatient MERCED MarcanoSCHARELY [id number] 09:00:00 09:00:00 Aldo 00 Nick Results Test Description Test Time Test Comments Results Result Comments Source POC-Glucose meter 2023-01-06 13:36:24 Test Item Value Reference Range Interpretation Comme nts POC-Glucose Meter (test code = 114 mg/dL 70-110 H : TESTED AT [facility] [address] [place] [address] 1538) [facility], [facility] 30: Grinding Wheel Dresser/Techni sada ID = [id number] for Dalcornellmpu, Irwin Lab Interpretation (test code = Abnormal 02124-1) [facility] [id number] 13:36:24 Test Item Value Reference Range Interpretation Comments POC-Glucose Meter (test 114 mg/dL 70-110 H : TE STED AT [facility] code = 1538) [address] [place] [address], [facility] 30: Grinding Wheel Dresser/Techni sada ID = [id number] for Dalawampu, Irwin Lab Interpretation (test Abnormal code = 55175-0) [facility]-Glucose [id number] 13:36:24 Test Item Value Reference Range Interpretation Comments POC-Glucose Meter (test 114 mg/dL 70-110 H : TE STED AT [facility] code = 1538) [address] [place] [address], 770 30: Grinding Wheel Dresser/Techni sada ID = [id number] for Dalawampu, Irwin Lab Interpretation (test Abnormal code = 17409-4) [facility]-Glucose [id number] 13:36:24 Test Item Value Reference Range Interpretation Comments POC-Glucose Meter (test 114 mg/dL 70-110 H : TE STED AT [facility] code = 1538) [address] [place] [address], [facility] 30: Grinding Wheel Dresser/Techni sada ID = [id number] for Dalawampu, Irwin Lab Interpretation (test Abnormal code = 00585-5) [facility]-GLUCOSE [id number] 13:36:24 Test Item Value Reference Range Interpretation Comments POC-GLUCOSE METER 114 mg/dL 70-110 H : TESTED A T [facility] 6720 (BEAKER) (test code = EDITA Yanez [facility], 1538) [address]: Grinding Wheel Dresser/Techni sada ID = [id number] for Irwin Mueller MR ABDOMEN WITH & WITHOUT IV [id number] 12:43:04 [facility] CENTERName: KATY MCNAIR : 1970 Sex: MMRI of the abdomen with and without contrastClinical History: Unlisted Reason for ExamSarcoid with hepatic involvement and known portal hypertension, evaluatehepatic parenchyma for cirrhosisTechnique: Multiplanar and multisequence MR images of the abdomen areobtained before and after intravenous contrast administration. Contrastis administered to evaluate neoplasm and vasculature. Comparison: Correlated with chest CT dated January 013Discussion:Liver contour is mildly lobulated. No suspicious liver mass isidentified. Hepatic vasculature is patent. The main portal vein [id number] mm in diameter. 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 No bi liary ductal dilatation.Spleen is markedly enlarged, and measures 25.7 cm sagittally. Itcontains innumerable tiny T1 and T2 hypointense foci, which correspondto faint calcifications seen on CT, likely to reflect calcifiedgranulomas.Pancreas and adrenal glands appear normal. Kidneys demonstrate no massor hydronephrosis. There is a small simple cysts each kidney.No lymphadenopathy. No ascites. Visualized bowel is unremarkable.Superior endplate compression deformities are noted at L1, L3 and L4. Nofocal bony lesionIMPRESSION:Impression:Mildly lobulated contour of liver. No liver mass is identified.Splenomegaly, containing innumerable tiny calcifications/granulomas.Status post cholecystectomy.Varices are present.L1, L3 and L4 superior plate compression deformities.Electronically Signed By: Britany [facility]01/06/2023 12:45 CDTWorkstation Name: [id number] W/PLT COUNT & AUTO [id number] 10:44:14 Test Item Value Reference Range Interpretation Comments WHITE BLOOD CELL COUNT 3.1 K/ L 3.5-10.5 L (BEAKER) (test code = 775) RED BLOOD CELL COUNT 3.79 M/ L 4.63-6.08 L (BEAKER) (test code = 761) HEMOGLOBIN (BEAKER) 10.0 GM/DL 13.7-17.5 L (test code = 410) HEMATOCRIT (BEAKER) 31.5 % 40.1-51.0 L (test code = 411) MEAN CORPUSCULAR VOLUME 83 fL 79-92 (BEAKER) (test code = 753) MEAN CORPUSCULAR 26.4 pg 25.7-32.2 HEMOGLOBIN (BEAKER) (test code = 751) MEAN CORPUSCULAR 31.7 GM/DL 32.3-36.5 L HEMOGLOBIN CONC (BEAKER) (test code = 752) RED CELL DISTRIBUTION 18.8 % 11.6-14.4 H WIDTH (BEAKER) (test code = 412) PLATELET COUNT (BEAKER) 86 K/CU MM 150-[address] matches (test code = 756) with plate let estimate. MEAN PLATELET VOLUME Unable to report due (BEAKER) (test code = to abn ormal Platelet 754) population distribution. NUCLEATED RED BLOOD 0 /100 WBC 0-0 CELLS (BEAKER) (test code = 413) NEUTROPHILS RELATIVE 64 % PERCENT (BEAKER) (test code = 429) LYMPHOCYTES RELATIVE 22 % PERCENT (BEAKER) (test code = 430) MONOCYTES RELATIVE 11 % PERCENT (BEAKER) (test code = 431) EOSINOPHILS RELATIVE 3 % PERCENT (BEAKER) (test code = 432) BASOPHILS RELATIVE 1 % PERCENT (BEAKER) (test code = 437) NEUTROPHILS ABSOLUTE 1.96 K/ L 1.78-5.38 COUNT (BEAKER) (test code = 670) LYMPHOCYTES ABSOLUTE 0.66 K/ L 1.32-3.57 L COUNT (BEAKER) (test code = 414) MONOCYTES ABSOLUTE 0.34 K/ L 0.30-0.82 COUNT (BEAKER) (test code = 415) EOSINOPHILS ABSOLUTE 0.09 K/ L 0.04-0.54 COUNT (BEAKER) (test code = 416) BASOPHILS ABSOLUTE 0.02 K/ L 0.01-0.08 COUNT (BEAKER) (test code = 417) IMMATURE 0.00 % 0.00-1.00 GRANULOCYTES-RELATIVE PERCENT (BEAKER) (test code = 2801) POCT-GLUCOSE [id number] 21:07:48 Test Item Value Reference Range Interpretation Comments POC-GLUCOSE METER 125 mg/dL 70-110 H : TESTED A T [facility] 6720 (BEAKER) (test code = [facility] Renata [facility], 1538) [address]: Grinding Wheel Dresser/Techni sada ID = [id number] for Maria Esther Barrera POCT-GLUCOSE [id number] 11:56:30 Test Item Value Reference Range Interpretation Comments POC-GLUCOSE METER 151 mg/dL 70-110 H : TESTED A T [facility] 6720 (BEAKER) (test code = [facility], 1538) [address]: Grinding Wheel Dresser/Techni sada ID = [id number] for Lena Gomez CBC W/PLT COUNT & AUTO [id number] 05:10:05 Test Item Value Reference Range Interpretation Comments WHITE BLOOD CELL COUNT 3.9 K/ L 3.5-10.5 (BEAKER) (test code = 775) RED BLOOD CELL COUNT 3.35 M/ L 4.63-6.08 L (BEAKER) (test code = 761) HEMOGLOBIN (BEAKER) 8.5 GM/DL 13.7-17.5 L (test code = 410) HEMATOCRIT (BEAKER) 27.3 % 40.1-51.0 L (test code = 411) MEAN CORPUSCULAR VOLUME 82 fL 79-92 (BEAKER) (test code = 753) MEAN CORPUSCULAR 25.4 pg 25.7-32.2 L HEMOGLOBIN (BEAKER) (test code = 751) MEAN CORPUSCULAR 31.1 GM/DL 32.3-36.5 L HEMOGLOBIN CONC (BEAKER) (test code = 752) RED CELL DISTRIBUTION 18.6 % 11.6-14.4 H WIDTH (BEAKER) (test code = 412) PLATELET COUNT (BEAKER) 87 K/CU MM 150-450 L (test code = 756) MEAN PLATELET VOLUME Unable to report due (BEAKER) (test code = to abn ormal Platelet 754) population distribution. NUCLEATED RED BLOOD 0 /100 WBC 0-0 CELLS (BEAKER) (test code = 413) NEUTROPHILS RELATIVE 64 % PERCENT (BEAKER) (test code = 429) LYMPHOCYTES RELATIVE 20 % PERCENT (BEAKER) (test code = 430) MONOCYTES RELATIVE 13 % PERCENT (BEAKER) (test code = 431) EOSINOPHILS RELATIVE 3 % PERCENT (BEAKER) (test code = 432) BASOPHILS RELATIVE 1 % PERCENT (BEAKER) (test code = 437) NEUTROPHILS ABSOLUTE 2.52 K/ L 1.78-5.38 COUNT (BEAKER) (test code = 670) LYMPHOCYTES ABSOLUTE 0.77 K/ L 1.32-3.57 L COUNT (BEAKER) (test code = 414) MONOCYTES ABSOLUTE 0.49 K/ L 0.30-0.82 COUNT (BEAKER) (test code = 415) EOSINOPHILS ABSOLUTE 0.11 K/ L 0.04-0.54 COUNT (BEAKER) (test code = 416) BASOPHILS ABSOLUTE 0.02 K/ L 0.01-0.08 COUNT (BEAKER) (test code = 417) IMMATURE 0.50 % 0.00-1.00 GRANULOCYTES-RELATIVE PERCENT (BEAKER) (test code = 2801) POCT-GLUCOSE [id number] 20:44:40 Test Item Value Reference Range Interpretation Comments POC-GLUCOSE METER 141 mg/dL 70-110 H : [facility] ([facility] (test code [facility], = 1538) [address]: Grinding Wheel Dresser/Techni sada ID = [id number] for Ruddy Milian POCT-GLUCOSE [id number] 12:15:39 Test Item Value Reference Range Interpretation Comments POC-GLUCOSE METER 126 mg/dL 70-110 H : TESTED A T [facility] 6720 (BEAKER) (test code = [facility] R [facility], 1538) [address]: Grinding Wheel Dresser/Techni sada ID = [id number] for Um eh, Akumbu POC-Glucose [id number] 06:07:26 Test Item Value Reference Range Interpretation Comments POC-Glucose Meter (test 148 mg/dL 70-110 H : TE STED AT [facility] code = 1538) 6720 [facility], 770 30: Grinding Wheel Dresser/Techni sada ID = [id number] for Tracy Alfonso Lab Interpretation (test Abnormal code = 16168-9) [facility] [id number] 06:07:26 Test Item Value Reference Range Interpretation Comments POC-GLUCOSE METER 148 mg/dL 70-110 H : TESTED A T [facility] 6720 (BEAKER) (test code = EDITA Yanez [place], 1538) [address]: Grinding Wheel Dresser/Techni sada ID = [id number] for Tracy Munoz CBC W/PLT COUNT & AUTO [id number] 03:55:25 Test Item Value Reference Range Interpretation Comments WHITE BLOOD CELL COUNT (BEAKER) 2.0 K/ L 3.5-10.5 L (test code = 775) RED BLOOD CELL COUNT (BEAKER) 2.90 M/ L 4.63-6.08 L (test code = 761) HEMOGLOBIN (BEAKER) (test code = 7.6 GM/DL 13.7-17.5 L 410) HEMATOCRIT (BEAKER) (test code = 23.5 % 40.1-51.0 L 411) MEAN CORPUSCULAR VOLUME (BEAKER) 81 fL 79-92 (test code = 753) MEAN CORPUSCULAR HEMOGLOBIN 26.2 pg 25.7-32.2 (BEAKER) (test code = 751) MEAN CORPUSCULAR HEMOGLOBIN CONC 32.3 GM/DL 32.3-36.5 (BEAKER) (test code = 752) RED CELL DISTRIBUTION WIDTH 18.4 % 11.6-14.4 H (BEAKER) (test code = 412) PLATELET COUNT (BEAKER) (test code 59 K/CU MM 150-450 L = 756) MEAN PLATELET VOLUME (BEAKER) 11.4 fL 9.4-12.4 (test code = 754) NUCLEATED RED BLOOD CELLS (BEAKER) 0 /100 WBC 0-0 (test code = 413) NEUTROPHILS RELATIVE PERCENT 57 % (BEAKER) (test code = 429) LYMPHOCYTES RELATIVE PERCENT 25 % (BEAKER) (test code = 430) MONOCYTES RELATIVE PERCENT 14 % (BEAKER) (test code = 431) EOSINOPHILS RELATIVE PERCENT 4 % (BEAKER) (test code = 432) BASOPHILS RELATIVE PERCENT 1 % (BEAKER) (test code = 437) NEUTROPHILS ABSOLUTE COUNT 1.14 K/ L 1.78-5.38 L (BEAKER) (test code = 670) LYMPHOCYTES ABSOLUTE COUNT 0.49 K/ L 1.32-3.57 L (BEAKER) (test code = 414) MONOCYTES ABSOLUTE COUNT (BEAKER) 0.28 K/ L 0.30-0.82 L (test code = 415) EOSINOPHILS ABSOLUTE COUNT 0.07 K/ L 0.04-0.54 (BEAKER) (test code = 416) BASOPHILS ABSOLUTE COUNT (BEAKER) 0.01 K/ L 0.01-0.08 (test code = 417) IMMATURE GRANULOCYTES-RELATIVE 0.00 % 0.00-1.00 PERCENT (BEAKER) (test code = 2801) (CELLAVISION MANUAL DIFF)2023-01-03 12:33:05 Test Item Value Reference Range Interpretation Comments TOTAL COUNTED (BEAKER) (test code = 1351) RBC MORPHOLOGY (BEAKER) (test code = Normal 762) WBC MORPHOLOGY (BEAKER) (test code = Normal 487) PLT MORPHOLOGY (BEAKER) (test code = Normal 486) Grinding Wheel Dresser ID - [id number] W/PLT COUNT & AUTO [id number] 12:33:04 Test Item Value Reference Range Interpretation Comments WHITE BLOOD CELL COUNT 1.3 K/ L 3.5-10.5 L (BEAKER) (test code = 775) RED BLOOD CELL COUNT 2.76 M/ L 4.63-6.08 L (BEAKER) (test code = 761) HEMOGLOBIN (BEAKER) 7.3 GM/DL 13.7-17.5 L (test code = 410) HEMATOCRIT (BEAKER) 22.2 % 40.1-51.0 L (test code = 411) MEAN CORPUSCULAR VOLUME 80 fL 79-92 (BEAKER) (test code = 753) MEAN CORPUSCULAR 26.4 pg 25.7-32.2 HEMOGLOBIN (BEAKER) (test code = 751) MEAN CORPUSCULAR 32.9 GM/DL 32.3-36.5 HEMOGLOBIN CONC (BEAKER) (test code = 752) RED CELL DISTRIBUTION 18.6 % 11.6-14.4 H WIDTH (BEAKER) (test code = 412) PLATELET COUNT (BEAKER) 49 K/CU MM 150-450 L (test code = 756) MEAN PLATELET VOLUME Unable to report due (BEAKER) (test code = to abn ormal Platelet 754) population distribution. NUCLEATED RED BLOOD 0 /100 WBC 0-0 CELLS (BEAKER) (test code = 413) NEUTROPHILS RELATIVE 52 % PERCENT (BEAKER) (test code = 429) LYMPHOCYTES RELATIVE 32 % PERCENT (BEAKER) (test code = 430) MONOCYTES RELATIVE 13 % PERCENT (BEAKER) (test code = 431) EOSINOPHILS RELATIVE 3 % PERCENT (BEAKER) (test code = 432) BASOPHILS RELATIVE 1 % PERCENT (BEAKER) (test code = 437) NEUTROPHILS ABSOLUTE 0.66 K/ L 1.78-5.38 L COUNT (BEAKER) (test code = 670) LYMPHOCYTES ABSOLUTE 0.41 K/ L 1.32-3.57 L COUNT (BEAKER) (test code = 414) MONOCYTES ABSOLUTE 0.16 K/ L 0.30-0.82 L COUNT (BEAKER) (test code = 415) EOSINOPHILS ABSOLUTE 0.04 K/ L 0.04-0.54 COUNT (BEAKER) (test code = 416) BASOPHILS ABSOLUTE 0.01 K/ L 0.01-0.08 COUNT (BEAKER) (test code = 417) IMMATURE 0.00 % 0.00-1.00 GRANULOCYTES-RELATIVE PERCENT (BEAKER) (test code = 2801) XR ABDOMEN/KUB 1 VIEW [id number] 09:42:36 [facility] : 1970 Sex: MCLINICAL HISTORY: Please assess for capsule retention in rectum.TECHNIQUE: Supine abdomenCOMPARISON: 01/02/2023IMPRESSION:The previous metallic capsule in the pelvis is no longer seen on thisexam.The bowel gas pattern is nonspecific. Free air and air-fluid levels arenot definitively seen, but cannot be excluded on the supine view.Electronically Signed By: Jacob Brasher01/03/2023 09:44 CDTWorkstation Name: [id number](CELLAVISION MANUAL DIFF)2023-01-02 12:55:06 Test Item Value Reference Range Interpretation Comments NEUTROPHILS - REL 61 % (CELLAVISION)(BEAKER) (test code = 2816) LYMPHOCYTES - REL 28 % (CELLAVISION)(BEAKER) (test code = 2817) MONOCYTES - REL 7 % (CELLAVISION)(BEAKER) (test code = 2818) EOSINOPHILS - REL 2 % (CELLAVISION)(BEAKER) (test code = 2819) BASOPHILS - REL 1 % (CELLAVISION)(BEAKER) (test code = 2820) NEUTROPHILS - ABS 0.92 K/ul 1.78-5.38 L (CELLAVISION)(BEAKER) (test code = 2830) LYMPHOCYTES - ABS 0.42 K/ul 1.32-3.57 L (CELLAVISION)(BEAKER) (test code = 2831) MONOCYTES - ABS 0.11 K/uL 0.30-0.82 L (CELLAVISION)(BEAKER) (test code = 2832) EOSINOPHILS - ABS 0.03 K/uL 0.04-0.54 L (CELLAVISION)(BEAKER) (test code = 2834) BASOPHILS - ABS 0.02 K/uL 0.01-0.08 (CELLAVISION)(BEAKER) (test code = 2835) TOTAL COUNTED (BEAKER) (test code 100 = 1351) MANUAL NRBC PER 100 CELLS 8 /100 WBC 0-0 H (BEAKER) (test code = 1353) WBC MORPHOLOGY (BEAKER) (test Normal code = 487) GIANT PLATELETS (BEAKER) (test Present code = 313) ANISOCYTOSIS (BEAKER) (test code 2+ moderate = 961) MICROCYTES (BEAKER) (test code = 2+ moderate 965) POIKILOCYTES (BEAKER) (test code 2+ moderate = 966) ELLIPTOCYTES (BEAKER) (test code 1+ few = 962) ARTIFACT (CELLAVISION)(BEAKER) Present (test code = 3432) PLATELET CONCENTRATION Decreased (CELLAVISION)(BEAKER) (test code = 3438) Grinding Wheel Dresser ID - [id number] ID - arcenio balsaraUser comments: Slide comments:CBC W/PLT COUNT & AUTO [id number] 12:55:04 Test Item Value Reference Range Interpretation Comments WHITE BLOOD CELL COUNT 1.5 K/ L 3.5-10.5 L (BEAKER) (test code = 775) RED BLOOD CELL COUNT 2.87 M/ L 4.63-6.08 L This is a corrected (BEAKER) (test code = result . Previous 761) result was 2.89 M/ L on 01/02/2023 at 1203 CDT HEMOGLOBIN (BEAKER) 7.6 GM/DL 13.7-17.5 L (test code = 410) HEMATOCRIT (BEAKER) 23.3 % 40.1-51.0 L This is a corrected (test code = 411) result. Pr evious result was 23.6 % on 01/02/2023 at 12 03 CDT MEAN CORPUSCULAR VOLUME 81 fL 79-92 This is a corrected (BEAKER) (test code = result . Previous 753) result was 82 f L on 01/02/2023 at 12 03 CDT MEAN CORPUSCULAR 26.5 pg 25.7-32.2 This is a c orrected HEMOGLOBIN (BEAKER) result. Previous (test code = 751) result was 26.3 pg on 01/02/2023 at 1203 CDT MEAN CORPUSCULAR 32.6 GM/DL 32.3-36.5 This is a c orrected HEMOGLOBIN CONC result. Prev ious (BEAKER) (test code = result was 32.2 752) GM/DL on 023 at 1203 CDT RED CELL DISTRIBUTION 18.6 % 11.6-14.4 H WIDTH (BEAKER) (test code = 412) PLATELET COUNT (BEAKER) 47 K/CU MM 150-450 L This is a corrected (test code = 756) result. Pr evious result was 49 K /CU MM on 01/02/2023 at 1203 CDT MEAN PLATELET VOLUME 10.1 fL 9.4-12.4 This is a corrected (BEAKER) (test code = result . Previous 754) result was 11.2 fL on 01/02/2023 at 1203 CDT NUCLEATED RED BLOOD 0 /100 WBC 0-0 CELLS (BEAKER) (test code = 413) XR ABDOMEN/KUB 1 VIEW [id number] 12:02:18 [facility] 1970 Sex: MCLINICAL HISTORY: check capsule is in the abdomen or passed for MRIcompatibilityTECHNIQUE: Supine abdomenCOMPARISON: NoneIMPRESSION:Right upper quadrant surgical clips. A metallic capsule is seen in thelower pelvis, likely in the rectosigmoid colon. There is moderate stool in the colon. Free air and air-fluid levels arenot definitively seen, but cannot be excluded on the supine view.Electronically Signed By: Jacob Brasher01/02/2023 12:04 CDTWorkstation Name: [id number] CHEST WITHOUT IV [id number] 09:36:29 [facility] 1970 Sex: MTECHNIQUE: CT scan of the chest WITHOUT intravenous contrast. Dosemodulation, iterative reconstruction, and/or weight-based adjustment ofthe mA/kV was utilized to reduce the radiation dose to as low asreasonably achievable.INDICATION: Unlisted Reason for ExamSarcoidosis, plus evaluate SVC for obstruction.COMPARISON: None.FINDINGS: ABSENCE OF INTRAVENOUS CONTRAST DECREASES SENSITIVITY FOR DETECTION OFFOCAL LESIONSAND VASCULAR PATHOLOGY.LINES/TUBES: None.LUNGS AND AIRWAYS: There are multiple tiny nodules which are mainlyalong the interlobular septa in the lower lobes and along the rightmajor fissure. There are some prominent bilateral perihilar tissue whichis most likely scar/fibrosis.PLEURA: The pleural spacesare clear.HEART AND MEDIASTINUM: The visualized thyroid gland is normal. Multiplecalcified lymph nodes in the mediastinum are consistent with thepatient's known sarcoidosis. The fluid in the heart is lower densitythan the myocardium, consistent with anemia. The left atrium is dilated.SOFT TISSUES AND BONES: Moderate urinary changes of the right humeraljoint. There are age- indeterminate but likely chronic compressionfractures as follow:Mild compression deformity the superior plate of C7, mild compressiondeformity of the superior plate of T2, mild compression deformity thesuperior plate of T3, moderate compression deformity the superiorendplate of T4, moderate compression deformity of T5, marked compressiondeformity of T6, mild compression deformity of the superior plate of T7,mild deformity of thesuperior plate of T8, and mild compressiondeformity the superior endplate of T10. There is no acute c ompressiondeformity of the L1 vertebral body with mild retropulsion andapproximately 50% height loss.UPPER ABDOMEN: The partially visualized spleen is enlarged, hypodense,and has several rounded hyperdense foci which are most likely granulomasrelated the patient's known sarcoidosis. The liver has a mildly nodularcontour. There is mild fat stranding in the upper abdomen, especiallyaround the pancreas.Prior cholecystectomy. Trace perihepatic ascites. Anonobstructing left upper pole renal stone measures 0.5 cm. Anonobstructing right upper pole renal stone is punctate.A right upper pole renal cyst measures 1 cm. No follow-up imaging isrecommended for this finding.IMPRESSION:1. While the nodules alongthe interlobular septa and the right majorfissure are nonspecific, this pattern can be seen with pulmonarysarcoidosis. Infection is also in the differential but considered lesslikely. The bilateral perihilar soft tissue is most likelyscar/fibrosis.2. There is an acute compression deformity of the L1 vertebral bodywith mild retropulsion and approximately 50% height loss.3. The partially visualized spleen is enlarged and contains severalgranulomas. There is mild fat stranding the upper abdomen, especiallyaround the pancreas is from an indeterminate cause. Acute pancreatitisis in the differential, butthis could also be related to cirrhosis andportal hypertension.4. The liver has a nodular contour, concerning for cirrhosis.Electronically Signed By: Jerry Mcdaniel01/02/2023 09:38 CDTWorkstation Name: [id number] 06:59:07 Test Item Value Reference Range Interpretation Comments POC-GLUCOSE METER 125 mg/dL 70-110 H [facility] (BE[facility]ER[facility] (test code = [facility], 1538) [address]: Grinding Wheel Dresser/Techni sada ID = [id number] for Maria Esther Barrera POCT-GLUCOSE [id number] 00:37:08 Test Item Value Reference Range Interpretation Comments POC-GLUCOSE METER 132 mg/dL 70-110 H : [facility] ([facility] (test code = [facility], 1538) [address]: Grinding Wheel Dresser/Techni sada ID = [id number] for Maria Esther Barrera URIC [id number] 20:55:35 Test Item Value Reference Range Interpretation Comments URIC ACID (BEAKER) (test code = 6.3 mg/dL 2.6-7.2 773) Grinding Wheel Dresser ID - EMPOC-Glucose [id number] 06:41:39 Test Item Value Reference Range Interpretation Comments POC-Glucose Meter (test 145 mg/dL 70-110 H : TE STED AT [facility] code = 1538) 6720 [facility], 770 30: Grinding Wheel Dresser/Techni sada ID = [id number] for Cortes, Alejandr o Lab Interpretation (test Abnormal code = 29302-0) [facility] [id number] 06:41:39 Test Item Value Reference Range Interpretation Comments POC-GLUCOSE METER 145 mg/dL 70-110 H : TESTED A T [facility] 6720 (BEAKER) (test code [facility], = 1538) [address]: Grinding Wheel Dresser/Techni sada ID = [id number] for Dura n, Reinaldo BILIRUBIN, TOTAL AND [id number] 05:56:05 Test Item Value Reference Range Interpretation Comments BILIRUBIN TOTAL (BEAKER) (test code 1.1 mg/dL 0.2-1.2 = 377) BILIRUBIN DIRECT (BEAKER) (test 0.4 mg/dL 0.1-0.5 code = 706) Grinding Wheel Dresser ID - MMCBC W/PLT COUNT & AUTO [id number] 05:03:26 Test Item Value Reference Range Interpretation Comments WHITE BLOOD CELL COUNT (BEAKER) 2.3 K/ L 3.5-10.5 L (test code = 775) RED BLOOD CELL COUNT (BEAKER) 2.89 M/ L 4.63-6.08 L (test code = 761) HEMOGLOBIN (BEAKER) (test code = 7.6 GM/DL 13.7-17.5 L 410) HEMATOCRIT (BEAKER) (test code = 23.8 % 40.1-51.0 L 411) MEAN CORPUSCULAR VOLUME (BEAKER) 82 fL 79-92 (test code = 753) MEAN CORPUSCULAR HEMOGLOBIN 26.3 pg 25.7-32.2 (BEAKER) (test code = 751) MEAN CORPUSCULAR HEMOGLOBIN CONC 31.9 GM/DL 32.3-36.5 L (BEAKER) (test code = 752) RED CELL DISTRIBUTION WIDTH 19.3 % 11.6-14.4 H (BEAKER) (test code = 412) PLATELET COUNT (BEAKER) (test code 70 K/CU MM 150-450 L = 756) MEAN PLATELET VOLUME (BEAKER) 11.2 fL 9.4-12.4 (test code = 754) NUCLEATED RED BLOOD CELLS (BEAKER) 0 /100 WBC 0-0 (test code = 413) NEUTROPHILS RELATIVE PERCENT 64 % (BEAKER) (test code = 429) LYMPHOCYTES RELATIVE PERCENT 26 % (BEAKER) (test code = 430) MONOCYTES RELATIVE PERCENT 9 % (BEAKER) (test code = 431) EOSINOPHILS RELATIVE PERCENT 1 % (BEAKER) (test code = 432) BASOPHILS RELATIVE PERCENT 1 % (BEAKER) (test code = 437) NEUTROPHILS ABSOLUTE COUNT 1.47 K/ L 1.78-5.38 L (BEAKER) (test code = 670) LYMPHOCYTES ABSOLUTE COUNT 0.59 K/ L 1.32-3.57 L (BEAKER) (test code = 414) MONOCYTES ABSOLUTE COUNT (BEAKER) 0.21 K/ L 0.30-0.82 L (test code = 415) EOSINOPHILS ABSOLUTE COUNT 0.02 K/ L 0.04-0.54 L (BEAKER) (test code = 416) BASOPHILS ABSOLUTE COUNT (BEAKER) 0.02 K/ L 0.01-0.08 (test code = 417) IMMATURE GRANULOCYTES-RELATIVE 0.00 % 0.00-1.00 PERCENT (BEAKER) (test code = 2801) URIC [id number] 00:13:13 Test Item Value Reference Range Interpretation Comments URIC ACID (BEAKER) (test code = 6.3 mg/dL 2.6-7.2 773) Grinding Wheel Dresser ID - MMPrepare Leuko-Red [id number] 23:55:00 Test Item Value Reference Range Interpretation Comments CROSSMATCH (test code = 2264) COMPATIBLE Unit ABO (test code = O Pos 9393026) UNIT NUMBER (test code = [id number] 934-0) Status (test code = 5617544) [facility] Product (test code RED BLOOD CELLS = 2263) PRODUCT CODE (test code = L9482R32 933-2) [facility] [id number] 23:55:00 Test Item Value Reference Range Interpretation Comments CROSSMATCH (test code = 2264) COMPATIBLE Unit ABO (test code = O Pos 4492602) UNIT NUMBER (test code = [id number] 934-0) Status (test code = 9414974) [facility] Blood Bank Product (test code RED BLOOD CELLS = 2263) PRODUCT CODE (test code = T6552Z29 933-2) [facility] [id number] 23:55:00 Test Item Value Reference Range Interpretation Comments CROSSMATCH (test code = 2264) COMPATIBLE Unit ABO (test code = O Pos 5669822) UNIT NUMBER (test code = [id number] 934-0) Status (test code = 3110003) [facility] Product (test code RED BLOOD CELLS = 2263) PRODUCT CODE (test code = L1854W11 933-2) [facility] [id number] 23:55:00 Test Item Value Reference Range Interpretation Comments CROSSMATCH (test code = 2264) COMPATIBLE Unit ABO (test code = O Pos 6442802) UNIT NUMBER (test code = [id number] 934-0) Status (test code = 9749051) [facility] Product (test code RED BLOOD CELLS = 2263) PRODUCT CODE (test code = W8525R53 933-2) [facility] [id number] 23:55:00 Test Item Value Reference Range Interpretation Comments CROSSMATCH (test code = 2264) COMPATIBLE Unit ABO (test code = O Pos 2089261) UNIT NUMBER (test code = [id number] 934-0) Status (test code = 5465851) [facility] Blood Bank Product (test code RED BLOOD CELLS = 2263) PRODUCT CODE (test code = R3021P59 933-2) [facility] [id number] 23:55:00 Test Item Value Reference Range Interpretation Comments CROSSMATCH (test code = 2264) COMPATIBLE Unit ABO (test code = O Pos 8737518) UNIT NUMBER (test code = [id number] 934-0) Status (test code = 7714474) [facility] Blood Bank Product (test code RED BLOOD CELLS = 2263) PRODUCT CODE (test code = C7007S28 933-2) [facility] [id number] 23:51:30 Test Item Value Reference Range Interpretation Comments POC-GLUCOSE METER 151 mg/dL 70-110 H : TESTED A T [facility] 6720 (BEAKER) (test code [place], = 1538) [address]: Grinding Wheel Dresser/Techni sada ID = [id number] for Cindy lisaReinaldo CBC (HEMOGRAM ONLY)2022-12-31 23:29:26 Test Item Value Reference Range Interpretation Comments WHITE BLOOD CELL COUNT (BEAKER) 3.3 K/ L 3.5-10.5 L (test code = 775) RED BLOOD CELL COUNT (BEAKER) 2.92 M/ L 4.63-6.08 L (test code = 761) HEMOGLOBIN (BEAKER) (test code = 7.7 GM/DL 13.7-17.5 L 410) HEMATOCRIT (BEAKER) (test code = 24.2 % 40.1-51.0 L 411) MEAN CORPUSCULAR VOLUME (BEAKER) 83 fL 79-92 (test code = 753) MEAN CORPUSCULAR HEMOGLOBIN 26.4 pg 25.7-32.2 (BEAKER) (test code = 751) MEAN CORPUSCULAR HEMOGLOBIN CONC 31.8 GM/DL 32.3-36.5 L (BEAKER) (test code = 752) RED CELL DISTRIBUTION WIDTH 18.9 % 11.6-14.4 H (BEAKER) (test code = 412) PLATELET COUNT (BEAKER) (test code 70 K/CU MM 150-450 L = 756) MEAN PLATELET VOLUME (BEAKER) 11.1 fL 9.4-12.4 (test code = 754) NUCLEATED RED BLOOD CELLS (BEAKER) 0 /100 WBC 0-0 (test code = 413) CBC (HEMOGRAM ONLY)2022-12-31 18:32:36 Test Item Value Reference Range Interpretation Comments WHITE BLOOD CELL COUNT (BEAKER) 4.4 K/ L 3.5-10.5 (test code = 775) RED BLOOD CELL COUNT (BEAKER) 3.21 M/ L 4.63-6.08 L (test code = 761) HEMOGLOBIN (BEAKER) (test code = 8.5 GM/DL 13.7-17.5 L 410) HEMATOCRIT (BEAKER) (test code = 26.6 % 40.1-51.0 L 411) MEAN CORPUSCULAR VOLUME (BEAKER) 83 fL 79-92 (test code = 753) MEAN CORPUSCULAR HEMOGLOBIN 26.5 pg 25.7-32.2 (BEAKER) (test code = 751) MEAN CORPUSCULAR HEMOGLOBIN CONC 32.0 GM/DL 32.3-36.5 L (BEAKER) (test code = 752) RED CELL DISTRIBUTION WIDTH 19.0 % 11.6-14.4 H (BEAKER) (test code = 412) PLATELET COUNT (BEAKER) (test code 66 K/CU MM 150-450 L = 756) MEAN PLATELET VOLUME (BEAKER) 12.2 fL 9.4-12.4 (test code = 754) NUCLEATED RED BLOOD CELLS (BEAKER) 0 /100 WBC 0-0 (test code = 413) BILIRUBIN, TOTAL AND [id number] 17:08:16 Test Item Value Reference Range Interpretation Comments BILIRUBIN TOTAL (BEAKER) (test code 1.6 mg/dL 0.2-1.2 H = 377) BILIRUBIN DIRECT (BEAKER) (test 0.7 mg/dL 0.1-0.5 H code = 706) Grinding Wheel Dresser ID - MMPOCT-GLUCOSE [id number] 12:15:14 Test Item Value Reference Range Interpretation Comments POC-GLUCOSE METER 102 mg/dL 70-110 : TESTED A T [facility] 6720 (BEAKER) ([facility] = 1538[facility] [address]: Grinding Wheel Dresser/Techni sada ID = [id number] for Rere Bledsoe CBC (HEMOGRAM ONLY)2022-12-31 10:06:03 Test Item Value Reference Range Interpretation Comments WHITE BLOOD CELL COUNT (BEAKER) 6.5 K/ L 3.5-10.5 (test code = 775) RED BLOOD CELL COUNT (BEAKER) 3.31 M/ L 4.63-6.08 L (test code = 761) HEMOGLOBIN (BEAKER) (test code = 8.7 GM/DL 13.7-17.5 L 410) HEMATOCRIT (BEAKER) (test code = 26.8 % 40.1-51.0 L 411) MEAN CORPUSCULAR VOLUME (BEAKER) 81 fL 79-92 (test code = 753) MEAN CORPUSCULAR HEMOGLOBIN 26.3 pg 25.7-32.2 (BEAKER) (test code = 751) MEAN CORPUSCULAR HEMOGLOBIN CONC 32.5 GM/DL 32.3-36.5 (BEAKER) (test code = 752) RED CELL DISTRIBUTION WIDTH 18.8 % 11.6-14.4 H (BEAKER) (test code = 412) PLATELET COUNT (BEAKER) (test code 63 K/CU MM 150-450 L = 756) MEAN PLATELET VOLUME (BEAKER) 10.7 fL 9.4-12.4 (test code = 754) NUCLEATED RED BLOOD CELLS (BEAKER) 0 /100 WBC 0-0 (test code = 413) US ABDOMEN [id number] 08:36:50 [facility] : 1970 Sex: MHISTORY: Portal hypertension, evaluate thrombusCOMPARISON: NoneFINDINGS:Limited ultrasound examination of the abdomen was performed withattention to the right upper quadrant. Additionally, color Doppler andspectralinterrogation was performed of the abdominal vasculature.The pancreas is obscured by overlying bowelgas.The liver is normal in size measuring 13.6 cm in length. Hepaticechogenicity is within normal limits. No focal hepatic abnormality isidentified. The gallbladder is surgically absent. There is no intra or extra hepaticbiliary ductal dilatation. The common bile duct measures 5 mm.The spleen is significantly enlarged measuring 24 cm in length.The right kidney is normal in size measuring 12.6 x 6.2 x6.0 cm withnormal cortical thickness/echogenicity. There is no evidence for solidrenal mass, hydronephrosis, or shadowing calculi within the rightkidney.There is no ascites present within the right upper quadrant.Vascular:The main portal vein is patent with antegrade flow and diameter of 1.3cm. Peak systolic velocity is 26.7 cm/s. The right and left portal veinsare patent with antegrade flow.The proper hepatic artery is patent with resistive index of 0.7. Theright and left hepatic arteries are patent with resistive indices of0.64 and 0.67 respectively.The IVC is patent and unremarkable. The middle,right, and left hepaticveins are patent and unremarkable. The visualized portions of thesplenic artery and vein are patent.The aorta is normal in caliber.IMPRESSION:No focal hepatic lesion identified.Splenomegaly.Patent and unremarkable hepatic vasculature.Electronically Signed By: Rivera Garcia MD12/31/2022 08:38 CDTWorkstation Name: [id number] 08:36:[address] [facility] 1970 Sex: MHISTORY: Portal hypertension, evaluate thrombusCOMPARISON: NoneFINDINGS:Limited ultrasound examination of the abdomen was performed withattention to the right upper quadrant. Additionally, color Doppler andspectralinterrogation was performed of the abdominal vasculature.The pancreas is obscured by overlying bowelgas.The liver is normal in size measuring 13.6 cm in length. Hepaticechogenicity is within normal limits. No focal hepatic abnormality isidentified. The gallbladder is surgically absent. There is no intra or extra hepaticbiliary ductal dilatation. The common bile duct measures 5 mm.The spleen is significantly enlarged measuring 24 cm in length.The right kidney is normal in size measuring 12.6 x 6.2 x6.0 cm withnormal cortical thickness/echogenicity. There is no evidence for solidrenal mass, hydronephrosis, or shadowing calculi within the rightkidney.There is no ascites present within the right upper quadrant.Vascular:The main portal vein is patent with antegrade flow and diameter of 1.3cm. Peak systolic velocity is 26.7 cm/s. The right and left portal veinsare patent with antegrade flow.The proper hepatic artery is patent with resistive index of 0.7. Theright and left hepatic arteries are patent with resistive indices of0.64 and 0.67 respectively.The IVC is patent and unremarkable. The middle,right, and left hepaticveins are patent and unremarkable. The visualized portions of thesplenic artery and vein are patent.The aorta is normal in caliber.IMPRESSION:No focal hepatic lesion identified.Splenomegaly.Patent and unremarkable hepatic vasculature.Electronically Signed By: Rivera Garcia MD12/31/2022 08:38 CDTWorkstation Name: [id number], [id number] 03:42:02 Test Item Value Reference Range Interpretation Comments CALCIUM IONIZED (BEAKER) (test 1.05 mmol/L 1.12-1.27 L code = 698) PH, BLOOD (BEAKER) (test code = 7.42 1810) BASIC METABOLIC [id number] 03:35:27 Test Item Value Reference Range Interpretation Comments SODIUM (BEAKER) 140 meq/L 136-145 (test code = 381) POTASSIUM 4.2 meq/L 3.5-5.1 (BEAKER) (test code = 379) CHLORIDE (BEAKER) 110 meq/L 98-107 H (test code = 382) CO2 (BEAKER) 23 meq/L 22-29 (test code = 355) BLOOD UREA 19 mg/dL 7-21 NITROGEN (BEAKER) (test code = 354) CREATININE 0.86 mg/dL 0.57-1.25 (BEAKER) (test code = 358) GLUCOSE RANDOM 143 mg/dL 70-105 H (BEAKER) (test code = 652) CALCIUM (BEAKER) 7.6 mg/dL 8.4-10.2 L (test code = 697) EGFR (BEAKER) 104 Interpretatio n of eGFR (test code = mL/min/1.73 values Stage De scription 1092) sq m Result G1 Flavia l or high >=90 G2 Mildly decreased 60-89 G3a Mildl y to moderately 45-5 9 G3b Moderately to s everely 30-44 G4 Severl y decreased 15-29 G5 Kidney failure <15Reported eGF R is based on the CKD-EPI 2020 equation that d oes not use a race coefficientEsti mated GFR is not as accur ate as Creatinine Kathryn rosario in predicting glom erular filtration rate . Estimated GFR is not appl icable for dialysis patien ts Grinding Wheel Dresser ID - [id number] 03:32:44 Test Item Value Reference Range Interpretation Comments PARTIAL THROMBOPLASTIN TIME 30.4 seconds 22.5-36.0 (BEAKER) (test code = 760) PROTHROMBIN TIME/[id number] 03:32:00 Test Item Value Reference Range Interpretation Comments PROTIME (BEAKER) 15.3 seconds 11.9-14.2 H (test code = 759) INR (BEAKER) (test 1.29 See_Comment [Automat ed message] code = 370) The system [employer] generated this result transmitted ref erence range: <=5.90. The reference range was not used to int erpret this result as normal/abnormal . RECOMMENDED COUMADIN/WARFARIN INR THERAPY RANGESSTANDARD DOSE: 2.0 - 3.0 Includes: PROPHYLAXIS for venous thrombosis, systemic embolization; TREATMENT for venous thrombosis and/or pulmonary embolus.HIGH RISK: Target INR is 2.5-3.5 for patients with mechanical heart valves.AST (SGOT)2022-12-31 03:29:44 Test Item Value Reference Range Interpretation Comments AST (SGOT) (BEAKER) (test code = 353) 39 U/L 5-34 H Grinding Wheel Dresser ID - [id number] 03:29:44 Test Item Value Reference Range Interpretation Comments MAGNESIUM (BEAKER) (test code = 2.1 mg/dL 1.6-2.6 627) Grinding Wheel Dresser ID - [id number] 03:29:44 Test Item Value Reference Range Interpretation Comments PHOSPHORUS (BEAKER) (test code = 3.4 mg/dL 2.3-4.7 604) Grinding Wheel Dresser ID - MARCOALT (SGPT)2022-12-31 03:29:43 Test Item Value Reference Range Interpretation Comments ALT (SGPT) (BEAKER) (test code = 347) 35 U/L 6-55 Grinding Wheel Dresser ID - MARCOCBC W/PLT COUNT & AUTO [id number] 03:13:35 Test Item Value Reference Range Interpretation Comments WHITE BLOOD CELL COUNT (BEAKER) 5.0 K/ L 3.5-10.5 (test code = 775) RED BLOOD CELL COUNT (BEAKER) 2.90 M/ L 4.63-6.08 L (test code = 761) HEMOGLOBIN (BEAKER) (test code = 7.5 GM/DL 13.7-17.5 L 410) HEMATOCRIT (BEAKER) (test code = 23.8 % 40.1-51.0 L 411) MEAN CORPUSCULAR VOLUME (BEAKER) 82 fL 79-92 (test code = 753) MEAN CORPUSCULAR HEMOGLOBIN 25.9 pg 25.7-32.2 (BEAKER) (test code = 751) MEAN CORPUSCULAR HEMOGLOBIN CONC 31.5 GM/DL 32.3-36.5 L (BEAKER) (test code = 752) RED CELL DISTRIBUTION WIDTH 18.3 % 11.6-14.4 H (BEAKER) (test code = 412) PLATELET COUNT (BEAKER) (test code 59 K/CU MM 150-450 L = 756) MEAN PLATELET VOLUME (BEAKER) 10.6 fL 9.4-12.4 (test code = 754) NUCLEATED RED BLOOD CELLS (BEAKER) 0 /100 WBC 0-0 (test code = 413) NEUTROPHILS RELATIVE PERCENT 87 % (BEAKER) (test code = 429) LYMPHOCYTES RELATIVE PERCENT 9 % (BEAKER) (test code = 430) MONOCYTES RELATIVE PERCENT 4 % (BEAKER) (test code = 431) EOSINOPHILS RELATIVE PERCENT 0 % (BEAKER) (test code = 432) BASOPHILS RELATIVE PERCENT 0 % (BEAKER) (test code = 437) NEUTROPHILS ABSOLUTE COUNT 4.31 K/ L 1.78-5.38 (BEAKER) (test code = 670) LYMPHOCYTES ABSOLUTE COUNT 0.43 K/ L 1.32-3.57 L (BEAKER) (test code = 414) MONOCYTES ABSOLUTE COUNT (BEAKER) 0.19 K/ L 0.30-0.82 L (test code = 415) EOSINOPHILS ABSOLUTE COUNT 0.00 K/ L 0.04-0.54 L (BEAKER) (test code = 416) BASOPHILS ABSOLUTE COUNT (BEAKER) 0.01 K/ L 0.01-0.08 (test code = 417) IMMATURE GRANULOCYTES-RELATIVE 0.80 % 0.00-1.00 PERCENT (BEAKER) (test code = 2801) POC-Glucose [id number] 23:46:13 Test Item Value Reference Range Interpretation Comments POC-Glucose Meter (test 151 mg/dL 70-110 H : TE STED AT [facility] code = 1538) [address] [facility], [address]70 [address]: Grinding Wheel [employer]er/Techni sada ID = [id number] for AISHA IVAN Lab Interpretation (test Abnormal code = 38705-8) [facility] [id number] 23:46:13 Test Item Value Reference Range Interpretation Comments POC-GLUCOSE METER 151 mg/dL 70-110 H : TESTED A T [facility] 6720 (BEAKER) (test code = EDITA Yanez [facility], 1538) [address]: Grinding Wheel Dresser/Techni sada ID = [id number] for BE AISHA MORALES CBC (HEMOGRAM ONLY)2022-12-30 23:43:54 Test Item Value Reference Range Interpretation Comments WHITE BLOOD CELL COUNT (BEAKER) 4.6 K/ L 3.5-10.5 (test code = 775) RED BLOOD CELL COUNT (BEAKER) 3.25 M/ L 4.63-6.08 L (test code = 761) HEMOGLOBIN (BEAKER) (test code = 8.4 GM/DL 13.7-17.5 L 410) HEMATOCRIT (BEAKER) (test code = 26.1 % 40.1-51.0 L 411) MEAN CORPUSCULAR VOLUME (BEAKER) 80 fL 79-92 (test code = 753) MEAN CORPUSCULAR HEMOGLOBIN 25.8 pg 25.7-32.2 (BEAKER) (test code = 751) MEAN CORPUSCULAR HEMOGLOBIN CONC 32.2 GM/DL 32.3-36.5 L (BEAKER) (test code = 752) RED CELL DISTRIBUTION WIDTH 18.3 % 11.6-14.4 H (BEAKER) (test code = 412) PLATELET COUNT (BEAKER) (test code 68 K/CU MM 150-450 L = 756) MEAN PLATELET VOLUME (BEAKER) 11.0 fL 9.4-12.4 (test code = 754) NUCLEATED RED BLOOD CELLS (BEAKER) 0 /100 WBC 0-0 (test code = 413) XR LUMBAR SPINE 2 OR 3 [id number] 21:18:16 [facility] 1970 Sex: MEXAM: XR Lumb osacral Spine, 2 or 3 ViewsCLINICAL INDICATION: lumbar painTECHNIQUE: Frontal and lateral views of the lumbar spine and sacrum.COMPARISON: No relevant prior studies available.FINDINGS:Vertebrae: 20% superior endplate compression fractures of L1 and L3.There is 15% superior endplate compression fracture of L4. These appearchronic.Sacrum/coccyx: Unremarkable as visualized. No acute fracture.Disc spaces: The spinal alignment is normal. Mild degenerative discdisease throughout the lumbar spine with mildmultilevel anteriorosteophyte formation.Soft tissues: Unremarkable.IMPRESSION:20% superior endplate c ompression fractures of L1 and L3. There is 15%superior endplate compression fracture of L4. These appear chronic.Mild degenerative changes throughout the lumbar spine. No acute fractureor subluxation is identified.Electronically Signed By: Jacob Montano12/30/2022 21:20 CDTWorkstation Name: [id number]- GLUCOSE [id number] 18:51:30 Test Item Value Reference Range Interpretation Comments POC-GLUCOSE METER 161 mg/dL 70-110 H : TESTED A T [facility] 6720 ([facility]) (test code = [facility] Yanez [facility], 1538) 23015: Grinding Wheel Dresser/Techni sada ID = [id number] for [facility] CBC (HEMOGRAM ONLY)2022-12-30 16:58:56 Test Item Value Reference Range Interpretation Comments WHITE BLOOD CELL COUNT (BEAKER) 3.2 K/ L 3.5-10.5 L (test code = 775) RED BLOOD CELL COUNT (BEAKER) 3.03 M/ L 4.63-6.08 L (test code = 761) HEMOGLOBIN (BEAKER) (test code = 7.9 GM/DL 13.7-17.5 L 410) HEMATOCRIT (BEAKER) (test code = 24.5 % 40.1-51.0 L 411) MEAN CORPUSCULAR VOLUME (BEAKER) 81 fL 79-92 (test code = 753) MEAN CORPUSCULAR HEMOGLOBIN 26.1 pg 25.7-32.2 (BEAKER) (test code = 751) MEAN CORPUSCULAR HEMOGLOBIN CONC 32.2 GM/DL 32.3-36.5 L (BEAKER) (test code = 752) RED CELL DISTRIBUTION WIDTH 18.4 % 11.6-14.4 H (BEAKER) (test code = 412) PLATELET COUNT (BEAKER) (test code 60 K/CU MM 150-450 L = 756) MEAN PLATELET VOLUME (BEAKER) 10.8 fL 9.4-12.4 (test code = 754) NUCLEATED RED BLOOD CELLS (BEAKER) 0 /100 WBC 0-0 (test code = 413) POCT-GLUCOSE [id number] 11:31:20 Test Item Value Reference Range Interpretation Comments POC-GLUCOSE METER 100 mg/dL 70-110 : TESTED A T [facility] 6720 (BEAKER) (test code = [place], 1538) [address]: Grinding Wheel Dresser/Techni sada ID = [id number] [facility] Prepare Leuko-Red [id number] 11:23:00 Test Item Value Reference Range Interpretation Comments CROSSMATCH (test code = 2264) COMPATIBLE Unit ABO (test code = O Pos [id number]) UNIT NUMBER (test code = [id number] 934-0) Status (test code = 2041700) ISSUED Blood Bank Product (test code RED BLOOD CELLS = 2263) PRODUCT CODE (test code = O5333D68 933-2) [facility] (HEMOGRAM ONLY)2022-12-30 10:12:08 Test Item Value Reference Range Interpretation Comments WHITE BLOOD CELL COUNT (BEAKER) 2.9 K/ L 3.5-10.5 L (test code = 775) RED BLOOD CELL COUNT (BEAKER) 2.63 M/ L 4.63-6.08 L (test code = 761) HEMOGLOBIN (BEAKER) (test code = 6.8 GM/DL 13.7-17.5 L 410) HEMATOCRIT (BEAKER) (test code = 21.3 % 40.1-51.0 L 411) MEAN CORPUSCULAR VOLUME (BEAKER) 81 fL 79-92 (test code = 753) MEAN CORPUSCULAR HEMOGLOBIN 25.9 pg 25.7-32.2 (BEAKER) (test code = 751) MEAN CORPUSCULAR HEMOGLOBIN CONC 31.9 GM/DL 32.3-36.5 L (BEAKER) (test code = 752) RED CELL DISTRIBUTION WIDTH 18.5 % 11.6-14.4 H (BEAKER) (test code = 412) PLATELET COUNT (BEAKER) (test code 52 K/CU MM 150-450 L = 756) MEAN PLATELET VOLUME (BEAKER) 10.5 fL 9.4-12.4 (test code = 754) NUCLEATED RED BLOOD CELLS (BEAKER) 0 /100 WBC 0-0 (test code = 413) POCT-GLUCOSE [id number] 07:03:22 Test Item Value Reference Range Interpretation Comments POC-GLUCOSE METER 121 mg/dL 70-110 H : TESTED A T [facility] 6720 (BEAKER) (test code = [facility] [place], 1538) 92475: Grinding Wheel Dresser/Techni sada ID = [id number] for Tamiko [place] CBC W/PLT COUNT & AUTO [id number] 04:30:52 Test Item Value Reference Range Interpretation Comments WHITE BLOOD CELL COUNT (BEAKER) 3.7 K/ L 3.5-10.5 (test code = 775) RED BLOOD CELL COUNT (BEAKER) 2.48 M/ L 4.63-6.08 L (test code = 761) HEMOGLOBIN (BEAKER) (test code = 6.5 GM/DL 13.7-17.5 L 410) HEMATOCRIT (BEAKER) (test code = 19.9 % 40.1-51.0 L 411) MEAN CORPUSCULAR VOLUME (BEAKER) 80 fL 79-92 (test code = 753) MEAN CORPUSCULAR HEMOGLOBIN 26.2 pg 25.7-32.2 (BEAKER) (test code = 751) MEAN CORPUSCULAR HEMOGLOBIN CONC 32.7 GM/DL 32.3-36.5 (BEAKER) (test code = 752) RED CELL DISTRIBUTION WIDTH 19.1 % 11.6-14.4 H (BEAKER) (test code = 412) PLATELET COUNT (BEAKER) (test code 62 K/CU MM 150-450 L = 756) MEAN PLATELET VOLUME (BEAKER) 10.5 fL 9.4-12.4 (test code = 754) NUCLEATED RED BLOOD CELLS (BEAKER) 0 /100 WBC 0-0 (test code = 413) NEUTROPHILS RELATIVE PERCENT 68 % (BEAKER) (test code = 429) LYMPHOCYTES RELATIVE PERCENT 22 % (BEAKER) (test code = 430) MONOCYTES RELATIVE PERCENT 9 % (BEAKER) (test code = 431) EOSINOPHILS RELATIVE PERCENT 1 % (BEAKER) (test code = 432) BASOPHILS RELATIVE PERCENT 0 % (BEAKER) (test code = 437) NEUTROPHILS ABSOLUTE COUNT 2.53 K/ L 1.78-5.38 (BEAKER) (test code = 670) LYMPHOCYTES ABSOLUTE COUNT 0.80 K/ L 1.32-3.57 L (BEAKER) (test code = 414) MONOCYTES ABSOLUTE COUNT (BEAKER) 0.32 K/ L 0.30-0.82 (test code = 415) EOSINOPHILS ABSOLUTE COUNT 0.03 K/ L 0.04-0.54 L (BEAKER) (test code = 416) BASOPHILS ABSOLUTE COUNT (BEAKER) 0.01 K/ L 0.01-0.08 (test code = 417) IMMATURE GRANULOCYTES-RELATIVE 0.30 % 0.00-1.00 PERCENT (BEAKER) (test code = 2801) COMPREHENSIVE METABOLIC [id number] 04:05:24 Test Item Value Reference Range Interpretation Comments TOTAL PROTEIN 5.1 gm/dL 6.0-8.3 L (BEAKER) (test code = 770) ALBUMIN (BEAKER) 3.1 g/dL 3.5-5.0 L (test code = 1145) ALKALINE 46 U/L 40-150 PHOSPHATASE (BEAKER) (test code = 346) BILIRUBIN TOTAL 1.5 mg/dL 0.2-1.2 H (BEAKER) (test code = 377) SODIUM (BEAKER) 141 meq/L 136-145 (test code = 381) POTASSIUM (BEAKER) 4.1 meq/L 3.5-5.1 (test code = 379) CHLORIDE (BEAKER) 112 meq/L 98-107 H (test code = 382) CO2 (BEAKER) (test 22 meq/L 22-29 code = 355) BLOOD UREA 25 mg/dL 7-21 H NITROGEN (BEAKER) (test code = 354) CREATININE 1.03 mg/dL 0.57-1.25 (BEAKER) (test code = 358) GLUCOSE RANDOM 123 mg/dL 70-105 H (BEAKER) (test code = 652) CALCIUM (BEAKER) 7.4 mg/dL 8.4-10.2 L (test code = 697) AST (SGOT) 48 U/L 5-34 H (BEAKER) (test code = 353) ALT (SGPT) 35 U/L 6-55 (BEAKER) (test code = 347) EGFR (BEAKER) 88 Interpretatio n of eGFR (test code = 1092) mL/min/1.[address] age Description sq m Result G1 Flavia l or high >=90 G2 Mildly decreased 60-89 G3a Mild ly to moderately 45-5 9 G3b Moderately to s everely 30-44 G4 Severl y decreased 15-29 G5 Kidney failure <15Reported eGF R is based on the CKD-EPI 2020 equation that d oes not use a race coefficientEsti mated GFR is not as accur ate as Creatinine Kathryn rosario in predicting glom erular filtration rate . Estimated GFR is not appl icable for dialysis patien ts Grinding Wheel Dresser ID - STACEY [id number] 04:03:15 Test Item Value Reference Range Interpretation Comments MAGNESIUM (BEAKER) (test code = 2.2 mg/dL 1.6-2.6 627) Grinding Wheel Dresser ID - STACEY [id number] 04:03:15 Test Item Value Reference Range Interpretation Comments PHOSPHORUS (BEAKER) (test code = 4.0 mg/dL 2.3-4.7 604) Grinding Wheel Dresser ID - STACEY WPOCT-GLUCOSE [id number] 00:35:17 Test Item Value Reference Range Interpretation Comments POC-GLUCOSE METER 108 mg/dL 70-110 : [facility] (test code = [place] [place], 1538) 33741: 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 The reference range was not used to int erpret this result as normal/abnormal . RECOMMENDED COUMADIN/WARFARIN INR THERAPY RANGESSTANDARD DOSE: 2.0 - 3.0 Includes: PROPHYLAXIS for venous thrombosis, systemic embolization; TREATMENT for venous thrombosis and/or pulmonary embolus.HIGH RISK: Target INR is 2.5-3.5 for patients with mechanical heart valves.INDIAN OF [id number] 20:14:00 Test Item Value Reference Range Interpretation Comments Glucose POC (test code = Glucose POC) 120 70-99 [facility]2022-10-21 20:14:00 Test Item Value Reference Range Interpretation Comments Glucose POC (test code = Glucose POC) 120 70-99 [place] [id number] 20:14:00 Test Item Value Reference Range Interpretation Comments Glucose POC (test code = Glucose POC) 120 70-99 [place] [id number] 20:14:00 Test Item Value Reference Range Interpretation Comments Glucose POC (test code = Glucose POC) 120 70-99 [facility]2022-10-21 20:14:00 Test Item Value Reference Range Interpretation Comments Glucose POC (test code = Glucose POC) 120 70-99 [place] [id number] 20:14:00 Test Item Value Reference Range Interpretation Comments Glucose POC (test code = Glucose POC) 120 70-99 [place] [id number] 20:14:00 Test Item Value Reference Range Interpretation Comments Glucose POC (test code = Glucose POC) 120 70-99 [place] [id number] 20:14:00 Test Item Value Reference Range Interpretation Comments Glucose POC (test code = Glucose POC) 120 70-99 [place] [id number] 20:14:00 Test Item Value Reference Range Interpretation Comments Glucose POC (test code = Glucose POC) 120 70-99 [facility]2022-10-21 20:14:00 Test Item Value Reference Range Interpretation Comments Glucose POC (test code = Glucose POC) 120 70-99 [facility]2022-10-21 20:14:00 Test Item Value Reference Range Interpretation Comments Glucose POC (test code = Glucose POC) 120 70-99 [place] [id number] 20:14:00 Test Item Value Reference Range Interpretation Comments Glucose POC (test code = Glucose POC) 120 70-99 [facility]
--- NOTE | 2023-01-23 04:43 | EDPHYS ---
Physician Documentation [facility] Name: Chris Galvan Age: 52 yrs Sex: Male : 1970 Arrival Date: 01/23/2023 Time: 03:59 Bed 8 Private MD: ED Physician Jai Ruiz HPI: 01/23 04:34 This 52 yrs old Male presents to ER via Ambulatory with complaints of carol Shortness Of Breath. 07:13 The patient has shortness of breath with light activity. Onset: The symptoms/episode carol began/occurred 3 day(s) ago. Duration: The symptoms are continuous, and are steadily getting worse. The patient's shortness of breath is aggravated by coughing. Associated signs and symptoms: Pertinent positives: non-productive cough, dizziness. The patient has experienced similar episodes in the past, several times. Historical: - Allergies: 04:06 No Known Allergies; bp - Home Meds: 04:06 allopurinol 300 mg Oral tablet daily [Active]; Baclofen Oral [Active]; Depakote ER 500 bp mg Oral Tablet 2 tabs daily [Active]; meloxicam 7.5 mg Oral tablet daily [Active]; metformin 500 mg Oral Tablet daily [Active]; gabapentin oral [Active]; carvedilol oral [Active]; tadalafil oral [Active]; - PMHx: 04:06 diabetes mellitus; epilepsy; SARCOIDOSIS (epilepsy); PORTAL HTN (epilepsy); bp - Immunization history:: Adult Immunizations up to date. - Social history:: Smoking status: Patient denies any tobacco usage or history of. ROS: 04:35 Constitutional: Negative for fever, chills, and weight loss, Eyes: Negative for injury, carol pain, redness, and discharge, ENT: Negative for injury, pain, and discharge, Neck: Negative for injury, pain, and swelling, Cardiovascular: Negative for chest pain, palpitations, and edema, Abdomen/GI: Negative for abdominal pain, nausea, vomiting, diarrhea, and constipation, Back: Negative for injury and pain, : Negative for injury, bleeding, discharge, and swelling, MS/Extremity: Negative for injury and deformity, Skin: Negative for injury, rash, and discoloration, Neuro: Negative for headache, weakness, numbness, tingling, and seizure, Psych: Negative for depression, anxiety, suicide ideation, homicidal ideation, and hallucinations, Allergy/Immunology: Negative for hives, rash, and allergies, Endocrine: Negative for neck swelling, polydipsia, polyuria, polyphagia, and marked weight changes, Hematologic/Lymphatic: Negative for swollen nodes, abnormal bleeding, and unusual bruising, 04:35 Respiratory: Positive for cough, shortness of breath, wheezing, expiratory, Exam: 04:35 Constitutional: This is a well developed, well nourished patient who is awake, alert, carol and in no acute distress. Head/Face: Normocephalic, atraumatic. Eyes: Pupils equal round and reactive to light, extra-ocular motions intact. Lids and lashes normal. Conjunctiva and sclera are non-icteric and not injected. Cornea within normal limits. Periorbital areas with no swelling, redness, or edema. ENT: Nares patent. No nasal discharge, no septal abnormalities noted. Tympanic membranes are normal and external auditory canals are clear. Oropharynx with no redness, swelling, or masses, exudates, or evidence of obstruction, uvula midline. Mucous membranes moist. Neck: Trachea midline, no thyromegaly or masses palpated, and no cervical lymphadenopathy. Supple, full range of motion without nuchal rigidity, or vertebral point tenderness. No Meningismus. Chest/axilla: Normal chest wall appearance and motion. Nontender with no deformity. No lesions are appreciated. Abdomen/GI: Soft, non-tender, with normal bowel sounds. No distension or tympany. No guarding or rebound. No evidence of tenderness throughout. Back: No spinal tenderness. No costovertebral tenderness. Full range of motion. Male : Normal genitalia with no discharge or lesions. Skin: Warm, dry with normal turgor. Normal color with no rashes, no lesions, and no evidence of cellulitis. MS/ Extremity: Pulses equal, no cyanosis. Neurovascular intact. Full, normal range of motion. Neuro: Awake and alert, GCS 15, oriented to person, place, time, and situation. Cranial nerves II-XII grossly intact. Motor strength 5/5 in all extremities. Sensory grossly intact. Cerebellar exam normal. Normal gait. Psych: Awake, alert, with orientation to person, place and time. Behavior, mood, and affect are within normal limits. 04:35 Cardiovascular: Rate: tachycardic, actual rate is 102 bpm, Rhythm: regular, Pulses: Pulses are 4+ in bilateral radial, brachial, femoral, popliteal, posterior tibial and and dorsalis pedis arteries.. Heart sounds: normal, Edema: is not appreciated, JVD: is not appreciated, 04:35 ECG was reviewed by the Attending Physician. 04:58 Musculoskeletal/extremity: ROM: no acute changes, Circulation is intact in all carol extremities. Sensation intact. Compartment Syndrome exam of affected extremity: is normal. Weight bearing: able to fully bear weight, without difficulty, DVT Exam: No signs of deep vein thrombosis. no pain, no swelling, no tenderness, negative Homans' sign noted on exam, no appreciated bluish discoloration, no erythema, no increased warmth, Vital Signs: 04:09 BP 127 / 76; Pulse 102; Resp 16; Temp 98.3; Pulse Ox 96% ; bp 04:30 BP 119 / 74; Pulse 96; Resp 18 S; Pulse Ox 98% on R/A; km8 05:00 BP 123 / 71; Pulse 93; Resp 17 S; Pulse Ox 99% on R/A; km8 05:30 BP 133 / 88; Pulse 97; Resp 21 S; Pulse Ox 100% on R/A; km8 05:50 BP 129 / 89; Pulse 95; Resp 20 S; Pulse Ox 99% on R/A; km8 07:00 BP 116 / 81; Pulse 91; Resp 18; Pulse Ox 99% on R/A; iw Sachin Coma Score: 04:58 Eye Response: spontaneous(4). Motor Response: obeys commands(6). Verbal Response: carol oriented(5). Total: 15. MDM: 04:05 Patient medically screened. carol 04:38 Differential diagnosis: Anxiety Reaction asthma, Bronchitis CHF exacerbation, Chronic carol Obstructive Pulmonary Disease pneumonia, pulmonary edema, Pulmonary Embolism reactive airway disease, Sepsis Unstable Angina. Antibiotic administration: Levaquin given. Immunization status: Influenza vaccine: within last 5 years. Data reviewed: vital signs, nurses notes, lab test result(s), EKG, radiologic studies, CT scan. Consideration of Admission/Observation Patient was admitted/placed on observation. Escalation of care including admission/observation considered. I considered the following discharge prescriptions or medication management in the emergency department Medications were administered in the Emergency Department. See MAR. Test considered but Not performed: MRI: mo lung mri. Historians other than the Patient: pt well informed. Care significantly affected by the following chronic conditions: Diabetes, scarodosis, epilepsy. Counseling: I had a detailed discussion with the patient and/or guardian regarding the historical points, exam findings, and any diagnostic results supporting the discharge/admit diagnosis, lab results, radiology results, the need for further work-up and treatment in the hospital. 07:00 Transition of care: Care assumed from Chapito Magallanes MD. ED course: Patient report/ ms3 care received from Dr Anna Magallanes at 0700. Patient needing transfer per Hospitalist, Dr Javier Doan, for hematology and rheumatology. . 08:09 ED course: Discussed case with Dr Ronquillo and she accepts patient to [facility]. ms3 01/23 04:05 Order name: Basic Metabolic Panel; Complete Time: 06:05 [facility] 01/23 04:05 Order name: CBC with Diff; Complete Time: 07:35 [facility] 01/23 04:05 Order name: LFT's; Complete Time: 06:05 [facility] 01/23 04:05 Order name: Magnesium; Complete Time: 06:05 [facility] 01/23 04:05 Order name: NT PRO-BNP; Complete Time: 06:05 [facility] 01/23 04:05 Order name: PT-INR; Complete Time: 05:12 [facility] 01/23 04:05 Order name: Troponin HS; Complete Time: 06:05 [facility] 01/23 04:05 Order name: Urinalysis w/ reflexes; Complete Time: 06:05 [facility] 01/23 04:05 Order name: Flu; Complete Time: 06:05 [facility] 01/23 04:34 Order name: Blood Culture Adult (2) [facility] 01/23 04:34 Order name: Lactate w/ 2H reflex if indic.; Complete Time: 07:11 [facility] 01/23 04:57 Order name: SARS-COV-2 RT PCR; Complete Time: 06:05 [facility] 01/23 04:58 Order name: Valproic Acid (Depakene) Level; Complete Time: 06:05 [facility] 01/23 05:11 Order name: CBC Smear Scan; Complete Time: 07:35 [facility] 01/23 06:06 Order name: Type And Screen; Complete Time: 07:39 [facility] 01/23 04:05 Order name: XRAY Chest (1 view); Complete Time: 17:44 [facility] 01/23 04:34 Order name: CT Chest For PE Angio; Complete Time: 17:44 [facility] 01/23 04:05 Order name: EKG; Complete Time: 04:07 [facility] 01/23 04:05 Order name: Cardiac monitoring; Complete Time: 04:38 [facility] 01/23 04:05 Order name: EKG - Nurse/Tech; Complete Time: 04:38 [facility] 01/23 04:05 Order name: IV Saline Lock; Complete Time: 04:38 [facility] 01/23 04:05 Order name: Labs collected and sent; Complete Time: 04:38 [facility] 01/23 04:05 Order name: O2 Per Protocol; Complete Time: 04:38 [facility] 01/23 04:05 Order name: O2 Sat Monitoring; Complete Time: 04:38 [facility] EC:35 Rate is 95 beats/min. Rhythm is regular. CO interval is normal. QRS interval is normal. [facility] QT interval is normal. No Q waves. T waves are Normal. No ST changes noted. Interpreted by me. Reviewed by me. Administered Medications: 05:17 Drug: MethylPrednisoLONE IVP 125 mg IVP once Route: IVP; Site: left forearm; km8 05:55 Follow up: Response: No adverse reaction km8 05:18 Drug: NS 0.9% IV 1000 ml IV at 1 bolus Per protocol; 1000 mL bolus Route: IV; Rate: 1 km8 bolus; Site: right forearm; 06:18 Follow up: IV Status: Completed infusion; IV Intake: 1000ml km8 05:18 Drug: levofloxacin IVPB 750 mg 150 ml IVPB once over 90 mins Volume: 150 ml; Route: km8 IVPB; Infused Over: 90 mins; Site: right forearm; 07:03 Follow up: Response: No adverse reaction; IV Status: Completed infusion; IV Intake: km8 150ml 05:18 Drug: Levalbuterol Inhalation 1.25 mg Inhalation once Route: Inhalation; km8 05:45 Follow up: Response: No adverse reaction km8 05:18 Drug: Ipratropium Inhalation Aerosol 0.5 mg Inhalation once Route: Inhalation; km8 05:45 Follow up: Response: No adverse reaction km8 07:34 Drug: Furosemide IVP 20 mg IVP once; give over 2 minutes Route: IVP; Site: right wrist; Disposition Summary: 01/23/23 06:44 Transfer Ordered Notes: Transfer Location: 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) carol - Dyspnea(01/23/23 06:44) carol - Pneumonia due to other specified bacteria(01/23/23 06:44) carol - Other pancytopenia(01/23/23 06:44) carol - Pleural effusion in other conditions classified elsewhere carol Forms: - Medication Reconciliation Form carol - SBAR form carol Signatures: Dispatcher [employer] EDMS Chapito Magallanse MD MD cha Williams, Irene, RN RN iw Tee Mora, TYPE MAPPER-C TYPE MAPPER-Cla1 Jesu Pat, RN RN bp Jai Ruiz DO DO ms3 Brittany Ramos RN RN km8 Corrections: (The following items were deleted from the chart) 04:43 04:43 Pneumonia due to other specified bacteria carol carol 04:57 04:07 COVID-19/FLU A+B+MOL.LAB.BRZ ordered. EDMS EDMS 04:58 04:35 VALPROIC ACID (DEPAKOTE)+C.LAB.BRZ ordered. EDMS EDMS 06:42 04:43 Inpatient Admission carol carol 06:42 04:43 Javier Doan carol carol 06:42 04:43 Telemetry/MedSurg (Inpatient) carol acrol 06:42 04:43 Fair carol carol 06:42 04:43 new carol carol 06:42 04:43 have improved carol carol 06:42 04:43 Standard carol carol 06:42 04:43 carol carol 06:42 04:43 Dyspnea carol carol 06:42 04:43 Sarcoidosis of lung carol carol 06:42 04:43 Pneumonia due to other specified bacteria - RIGHT UPPER LOBE carol carol 06:42 05:24 Other pancytopenia carol carol 07:10 06:44 TO [facility] carol carol 08:09 07:00 ED course: Patient report/ care received from Dr Anna Magallanes at 0700. Patient ms3 needing transfer for hematology and rheumatology. . ms3 08:12 07:10 TO [facility] carol ms3 10:35 08:12 Dr Ronquillo ms3 iw
--- NOTE | 2023-01-23 04:43 | ER ---
Nurse's Notes [facility] Name: Chris Galvan Age: 52 yrs Sex: Male : 1970 Arrival Date: 01/23/2023 Time: 03:59 Bed 8 Private MD: Diagnosis: Sarcoidosis of lung;Dyspnea;Pneumonia due to other specified bacteria;Other pancytopenia;Pleural effusion in other conditions classified elsewhere Presentation: 01/23 04:09 Chief complaint: Patient states: COUGH/SOB x 1 DAY. Coronavirus screen: At this time, bp the client does not indicate any symptoms associated with coronavirus-19. Ebola Screen: No symptoms or risks identified at this time. Initial Sepsis Screen: Does the patient meet any 2 criteria? HR > 90 bpm. No. Patient's initial sepsis screen is negative. Does the patient have a suspected source of infection? No. Patient's initial sepsis screen is negative. Risk Assessment: Do you want to hurt yourself or someone else? Patient reports no desire to harm self or others. Onset of symptoms is unknown. 04:09 Method Of Arrival: Ambulatory bp 04:09 Acuity: GLORIA 3 bp Triage Assessment: 04:13 General: Appears in no apparent distress. Behavior is calm, cooperative, appropriate bp for age. Pain: Denies pain. Respiratory: Reports shortness of breath cough that is Onset: The symptoms/episode began/occurred yesterday, the patient has mild shortness of breath. Historical: - Allergies: 04:06 No Known Allergies; bp - Home Meds: 04:06 allopurinol 300 mg Oral tablet daily [Active]; Baclofen Oral [Active]; Depakote ER 500 bp mg Oral Tablet 2 tabs daily [Active]; meloxicam 7.5 mg Oral tablet daily [Active]; metformin 500 mg Oral Tablet daily [Active]; gabapentin oral [Active]; carvedilol oral [Active]; tadalafil oral [Active]; - PMHx: 04:06 diabetes mellitus; epilepsy; SARCOIDOSIS (epilepsy); PORTAL HTN (epilepsy); bp - Immunization history:: Adult Immunizations up to date. - Social history:: Smoking status: Patient denies any tobacco usage or history of. Screenin:20 [facility] ED Fall Risk Assessment (Adult) History of falling in the last 3 months, km8 including since admission Yes- single mechanical fall (1 pt) Confusion or Disorientation No (0 pts) Intoxicated or Sedated No (0 pts) Impaired Gait No (0 pts) Mobility Assist Device Used No (0 pt) Altered Elimination No (0 pt) Score/Fall Risk Level 0 - 2 = Low Risk Oriented to surroundings, Maintained a safe environment, Educated pt \T\ family on fall prevention, incl call for assistance when getting out of bed, Assessed \T\ reinforced patient's understanding of fall precautions. 04:20 Abuse screen: Denies threats or abuse. Denies injuries from another. Nutritional km8 screening: No deficits noted. Tuberculosis screening: No symptoms or risk factors identified. Assessment: 04:20 General: Appears in no apparent distress. comfortable, Behavior is calm, cooperative, km8 appropriate for age. Pain: Denies pain. Neuro: No deficits noted. [place] Agitation-Sedation Scale (RASS): 0 - Alert and Calm Level of Consciousness is awake, alert, obeys commands, Oriented to person, place, time, situation, Appropriate for age. Cardiovascular: Denies chest pain, Capillary refill < 3 seconds Patient's skin is warm and dry. Rhythm is sinus tachycardia. Respiratory: Reports shortness of breath at rest cough that is non-productive, Airway is patent Respiratory effort is even, unlabored, Respiratory pattern is regular, symmetrical, Breath sounds with crackles bilaterally. Onset: The symptoms/episode began/occurred yesterday. GI: No deficits noted. No signs and/or symptoms were reported involving the gastrointestinal system. : No deficits noted. No signs and/or symptoms were reported regarding the genitourinary system. EENT: No deficits noted. No signs and/or symptoms were reported regarding the EENT system. Derm: No deficits noted. No signs and/or symptoms reported regarding the dermatologic system. Skin is intact, is healthy with good turgor, Skin is dry, Skin is normal, Skin temperature is warm. Musculoskeletal: Range of motion: limited in back pt has back brace due to recent back injury. 05:53 Reassessment: Patient appears in no apparent distress at this time. No changes from km8 previously documented assessment. Patient and/or family updated on plan of care and expected duration. Pain level reassessed. Patient is alert, oriented x 3, equal unlabored respirations, skin warm/dry/pink. 07:44 Reassessment: Patient appears in no apparent distress at this time. Patient and/or iw family updated on plan of care and expected duration. Pain level reassessed. Patient is alert, oriented x 3, equal unlabored respirations, skin warm/dry/pink. breakfast tray ordered for pt. 09:00 Reassessment: Patient appears in no apparent distress at this time. Patient and/or iw family updated on plan of care and expected duration. Pain level reassessed. Patient is alert, oriented x 3, equal unlabored respirations, skin warm/dry/pink. Dr. Ruiz at bedside speaking with pt and , transfer pending. 09:22 Reassessment: attempt to call report , nurse needs 15 minutes, will call me back. iw 09:50 Reassessment: attempt to call report. iw 10:05 Reassessment: report given to BRIAN Nascimento. iw Vital Signs: 04:09 BP 127 / 76; Pulse 102; Resp 16; Temp 98.3; Pulse Ox 96% ; bp 04:30 BP 119 / 74; Pulse 96; Resp 18 S; Pulse Ox 98% on R/A; km8 05:00 BP 123 / 71; Pulse 93; Resp 17 S; Pulse Ox 99% on R/A; km8 05:30 BP 133 / 88; Pulse 97; Resp 21 S; Pulse Ox 100% on R/A; km8 05:50 BP 129 / 89; Pulse 95; Resp 20 S; Pulse Ox 99% on R/A; km8 07:00 BP 116 / 81; Pulse 91; Resp 18; Pulse Ox 99% on R/A; iw Sachin Coma Score: 04:58 Eye Response: spontaneous(4). Motor Response: obeys commands(6). Verbal Response: carol oriented(5). Total: 15. ED Course: 04:02 Patient arrived in ED. [email or web address] 04:04 Chapito Magallanes MD is Attending Physician. carol 04:06 Arm band placed on. bp 04:07 Brittany Ramos RN is Primary Nurse. km8 04:10 Triage completed. bp 04:18 XRAY Chest (1 view) In Process Unspecified. EDMS 04:20 Patient has correct armband on for positive identification. Bed in low position. Call km8 light in reach. Side rails up X 1. Client placed on continuous cardiac and pulse oximetry monitoring. NIBP monitoring applied. property assessment monitor on. Door closed. Noise minimized. 04:20 Patient maintains SpO2 saturation greater than 95% on room air. km8 04:23 Inserted saline lock: 20 gauge in left antecubital area, using aseptic technique. Blood km8 collected. 04:38 Troponin HS Sent. km8 04:38 PT-INR Sent. km8 04:38 NT PRO-BNP Sent. km8 04:38 Magnesium Sent. km8 04:38 LFT's Sent. km8 04:38 CBC with Diff Sent. km8 04:38 Basic Metabolic Panel Sent. km8 04:38 Flu Sent. km8 04:40 Javier Doan MD is Hospitalizing Provider. carol 04:56 Inserted saline lock: 20 gauge in right forearm, using aseptic technique. Blood km8 collected. 05:18 Blood Culture Adult (2) Sent. km8 05:18 Lactate w/ 2H reflex if indic. Sent. km8 05:18 Flu Sent. km8 05:18 Urinalysis w/ reflexes Sent. km8 05:18 Valproic Acid (Depakene) Level Sent. km8 05:18 SARS-COV-2 RT PCR Sent. km8 05:53 No provider procedures requiring assistance completed. km8 06:03 CT Chest For PE Angio In Process Unspecified. EDMS 06:18 Type And Screen Sent. km8 06:58 initiated transfer to [facility]. bd 07:02 Report given to BRIAN Reyes. km8 07:08 Primary Nurse role handed off by Brittany Ramos RN iw 07:08 Amy Moreland RN is Primary Nurse. iw 07:35 Attending Physician role handed off by Chapito Magallanes MD ms3 07:35 Jai Ruiz DO is Attending Physician. ms3 09:17 pt accepted in transfer to [facility] by dr Ronquillo, admin approval given by iman Alvarez, palbo going to [id number]. 10:34 Patient transferred, IV remains in place. iw Administered Medications: 05:17 Drug: MethylPrednisoLONE IVP 125 mg IVP once Route: IVP; Site: left forearm; km8 05:55 Follow up: Response: No adverse reaction km8 05:18 Drug: NS 0.9% IV 1000 ml IV at 1 bolus Per protocol; 1000 mL bolus Route: IV; Rate: 1 km8 bolus; Site: right forearm; 06:18 Follow up: IV Status: Completed infusion; IV Intake: 1000ml km8 05:18 Drug: levofloxacin IVPB 750 mg 150 ml IVPB once over 90 mins Volume: 150 ml; Route: km8 IVPB; Infused Over: 90 mins; Site: right forearm; 07:03 Follow up: Response: No adverse reaction; IV Status: Completed infusion; IV Intake: km8 150ml 05:18 Drug: Levalbuterol Inhalation 1.25 mg Inhalation once Route: Inhalation; km8 05:45 Follow up: Response: No adverse reaction km8 05:18 Drug: Ipratropium Inhalation Aerosol 0.5 mg Inhalation once Route: Inhalation; km8 05:45 Follow up: Response: No adverse reaction [facility] 07:34 Drug: Furosemide IVP 20 mg IVP once; give over 2 minutes Route: IVP; Site: right wrist; iw Medication: 05:53 VIS not applicable for this client. km8 Intake: 06:18 IV: 1000ml; Total: 1000ml. 8 07:03 IV: 150ml; Total: 1150ml. km8 Output: 07:50 Urine: 475ml (Voided); Total: 475ml. iw 08:15 Urine: 550ml (Voided); Total: 1025ml. iw 08:58 Urine: 600ml (Voided); Total: 1625ml. tm6 Outcome: 04:43 Decision to Hospitalize by Provider. carol 06:44 ER care complete, transfer ordered by . [facility] 10:34 Transferred by ground EMS to [facility], [facility], Transfer form completed. iw X-rays sent w/ patient. 10:34 Condition: good 10:34 Discharge instructions given to patient, family, Instructed on the need for transfer, Demonstrated understanding of instructions, 10:35 Patient left the ED. Signatures: Dispatcher [employer] EDMS Aurora Kerr Corey, MD MD cha Williams, Irene RN Jesu Conway RN Jai Campo DO DO ms3 Cristina Barretoj6 Brittany Ramos RN RN km8 Campbell Hay RN RN tm6 Corrections: (The following items were deleted from the chart) 04:57 04:38 COVID-19/FLU A+[id number].BRZ drawn and sent. km8 EDMS
[2023-01-23] MEDS ORDERED: Levofloxacin 750mg IV 750 MG/150 ML BAG IV ONE (05:00)
[2023-01-23] MEDS ORDERED: IPRATROPIUM BROM 0.5MG/2.5ML ONE (05:00)
[2023-01-23] MEDS ORDERED: LEVALBUTEROL 1.25 MG/3 ML NEB ONE (05:00)
[2023-01-23] MEDS ORDERED: METHYLPREDNISOLONE 125 MG INJ ONE (05:00)
[2023-01-23] MEDS ORDERED: NA CHLORIDE 0.9% 1,000 ML ONE (05:01)
[2023-01-23 05:07] LABS: Absolute Lymphocytes (CBC) 0.4 K/uL (0.7-4.9); Hematocrit 23.5 % (39.6-49.0); Lymphocytes % 25.1 % (15.3-44.8); MCV 75.5 fL (80-100); MPV 8.8 fL (7.6-11.3); Platelets 55 thou/uL (152-406); RBC Red Blood Cell Count 3.11 M/uL (4.33-5.43)
[2023-01-23 05:11] LABS: Protime INR 1.16
[2023-01-23 05:25] LABS: Albumin 3.4 g/dL (3.4-5.0); Bilirubin Direct 0.3 mg/dL (0-0.2); Bilirubin Indirect, Calculated 0.8 mg/dL (0.2-0.8); Bilirubin Total 1.1 mg/dL (0.2-1.0); Magnesium 1.9 mg/dL (1.6-2.4); Potassium 3.7 mEq/L (3.5-5.1); Protein, Total 6.9 g/dL (6.4-8.2); Troponin High Sensitivity 5.8 pg/mL (<58.9); Valproic Acid (Depakene) Level 53.1 mcg/mL (50.0-100.0)
[2023-01-23 05:34] LABS: Specific Gravity 1.016 (1.005-1.030); Urine Bilirubin NEGATIVE (Negative); Urine Blood Negative (Negative); Urine Clarity Clear (Clear); Urine Color Light-Yellow (Yellow); Urine Glucose NEGATIVE (Negative); Urine Protein NEGATIVE (Negative); Urine Urobilinogen 1+ (Normal); Urine pH 6.5 (5.0-7.0)
[2023-01-23 07:31] LABS: Blood Morphology Comment NOT SEEN (NOT SEEN); Platelet Estimate DECR; White Blood Cell Scan OK (OK)
[2023-01-23] MEDS ORDERED: FUROSEMIDE 20 MG/ 2ML VIAL ONE (07:36)
--- NOTE | 2023-01-23 10:49 | RAD REPORT ---
EXAM DESCRIPTION: CT - Chest For Pe Angio - 01/23/2023 7:08 am CLINICAL HISTORY: Congestion;COPD;Cough COMPARISON: None. TECHNIQUE: CT CHEST ANGIOGRAPHY WITH IV CONTRAST on 01/23/2023 4:34 AM CDT. MIPS reconstructions wer e generated. This exam was performed according to our departmental dose-optimization program, which includes autom ated exposure control, adjustment of the mA and/or kV according to patient size and/or use of iterati ve reconstruction technique. MIP images were generated. FINDINGS: Thoracic aorta is normal in course and caliber without aneurysm or dissection. Pulmonary a rteries are poorly opacified. There are no large or central filling defects. The heart is normal in size. There is no pericardial effusion. There are multiple calcified and mixed density lymph nodes throughout the mediastinum and bilateral xu. There is a trace left pleural effusion. There is a trace right pleural effusion. Central airways are patent. There is diffuse interlobular septal thickening, most significant in the upper and lower port ions of both lungs. There is extensive bilateral perihilar scarring extending into the upper lobes. T here is no focal suspicious consolidation or mass. In the upper abdomen, the spleen is enlarged measuring 18.3 cm. Cholecystectomy was performed. Ther e are multiple old appearing upper thoracic compression fractures. IMPRESSION: No aortic dissection or aneurysm. No large or central pulmonary embolus. Constellation of pulmonary and mediastinal findings which may represent silicosis versus sarcoidosis. Pleural effusions and interlobular septal thickening raises the possibility of superimposed pulmonary edema. Splenomegaly. Electronically signed by: Jake Perez MD 01/23/2023 7:02 AM CDT Due to temporary technical issues with the PACS/Fluency reporting system, reports are being signed by the in house radiologist without review as a courtesy to ensure prompt reporting. The interpreting r adiologist is fully responsible for the content of the report.
[2023-01-23 11:02] VITALS: TEMP 98.3
[2023-01-23 11:06] VITALS: O2SAT 99
[2023-01-23 11:07] VITALS: BP 116/81
--- NOTE | 2023-01-23 11:38 | RAD REPORT ---
EXAM DESCRIPTION: RAD - Chest Single View - 01/23/2023 4:16 am CLINICAL HISTORY: COUGH TECHNIQUE: AP chest COMPARISON: None available for comparison FINDINGS: CHEST: Heart: The cardiomediastinal silhouette is within normal limits. Lungs: Diffusely increased interstitial markings with thickening of interlobular septal lines most co nsistent with interstitial pulmonary edema. No focal consolidation. Mediastinum: Unremarkable Pleura: No appreciable effusion. No pneumothorax. Bones: Intact IMPRESSION: Diffusely increased interstitial markings with thickening of interlobular septal lines m ost consistent with interstitial pulmonary edema. Electronically signed by: Felix Dee MD 01/23/2023 4:59 AM CDT Due to temporary technical issues with the PACS/Fluency reporting system, reports are being signed by the in house radiologist without review as a courtesy to ensure prompt reporting. The interpreting r adiologist is fully responsible for the content of the report.
--- NOTE | 2023-01-23 12:35 | EKG ---
Test Date: 2023-01-23 Test Time: 04:30:41 On Car Supervisor: TITUS MEASUREMENT RESULTS: Intervals: Rate: 95 IN: 178 QRSD: 86 QT: 340 QTc: 427 [place]: P: 31 IN: 178 QRS: 67 T: 10 INTERPRETIVE STATEMENTS: Normal sinus rhythm Normal ECG Compared to ECG 12/29/2022 15:18:49 Sinus tachycardia no longer present ST (T wave) deviation no longer present Possible ischemia no longer present Electronically Signed On 01-23-23 12:34:18 CDT by Donta Live
== END 2023-01-23 10:35 | disposition short-term general hospital (02) ==
LOC: ER 03:59
DX: D86.0 Sarcoidosis of lung (principal); J15.8 Pneumonia due to other specified bacteria; D61.818 Other pancytopenia; J91.8 Pleural effusion in other conditions classified elsewhere; E11.9 Type 2 diabetes mellitus without complications; I27.20 Pulmonary hypertension, unspecified; Z20.822 Contact with and (suspected) exposure to COVID-19
CPT/HCPCS: 93005; 87040 ×2; 85025; 80048; 36415; 86900; 83735; 86850; 85610; 86901; 80076; 80164; 83605; 81003; 84484; 83880; 87635; 87804 ×2; 71275; 71045; Q9967; J1940; J7614; J7644; J2930; J7030

== ENCOUNTER → 2023-04-07 | Emergency (ER) | payer BC ==
[~2023-04-07] MED LIST: FAMOTIDINE 20 MG/2 ML VIAL IV ONE; LEVETIRACETAM 500 MG/5 ML VIAL IV ONE; NA CHLORIDE 0.9% 1,000 ML ONE; NA CHLORIDE 0.9% 250 ML ONE; NA CHLORIDE 0.9% 500 ML ONE; OCTREOTIDE ACETATE 100 MCG/ML ONE; OCTREOTIDE ACETATE 500 MCG/ML ONE; PANTOPRAZOLE 40 MG INJ ONE
[2023-04-07 21:41] LABS: Protime INR 1.12
[2023-04-07 21:46] LABS: Albumin 3.4 g/dL (3.4-5.0); Bilirubin Total 1.5 mg/dL (0.2-1.0); Potassium 3.4 mEq/L (3.5-5.1); Protein, Total 6.5 g/dL (6.4-8.2)
[2023-04-07 21:53] LABS: Absolute Lymphocytes (CBC) 0.7 K/uL (0.7-4.9); Hematocrit 28.8 % (39.6-49.0); Lymphocytes % 22.6 % (15.3-44.8); MCV 67.3 fL (80-100); Platelets 61 thou/uL (152-406); RBC Red Blood Cell Count 4.28 M/uL (4.33-5.43)
[2023-04-07 22:10] LABS: Anisocytosis 2+; Blood Morphology Comment NOTED (NOT SEEN); Hypochromasia 1+; Platelet Estimate DECR; White Blood Cell Scan OK (OK)
[2023-04-07 22:11] LABS: Ovalocytes SLIGHT; Poikilocytosis SLIGHT; Teardrop Cell FEW
--- NOTE | 2023-04-07 23:44 | ER ---
[facility] Name: Chris Galvan Age: 52 yrs Sex: Male : 1970 Arrival Date: 04/07/2023 Time: 17:10 Bed 16 Private MD: Diagnosis: GI Bleed/ Gastrointestinal hemorrhage, unspecified;Acute [place] gastroesophageal bleeding, esophageal variceal bleeding Presentation: 04/07 17:38 Chief complaint: Patient states: STATES SPIT UP BLOOD X 2 TODAY. ESOPHAGEAL VARICES db BANDING ON 03/29/2023. Coronavirus screen: Vaccine status: Client denies travel out of the [place] in the last 14 days. At this time, the client does not indicate any symptoms associated with coronavirus-19. Ebola Screen: Patient negative for fever greater than or equal to 101.5 degrees Fahrenheit, and additional compatible Ebola Virus Disease symptoms Patient denies exposure to infectious person. Patient denies travel to an Ebola-affected area in the 21 days before illness onset. No symptoms or risks identified at this time. Initial Sepsis Screen: Does the patient meet any 2 criteria? No. Patient's initial sepsis screen is negative. Does the patient have a suspected source of infection? No. Patient's initial sepsis screen is negative. Risk Assessment: Do you want to hurt yourself or someone else? Patient reports no desire to harm self or others. Onset of symptoms was April 07, 2023. 17:38 Method Of Arrival: Ambulatory db 17:38 Acuity: GLORIA 3 db Triage Assessment: 17:41 General: Appears in no apparent distress. comfortable, Behavior is calm, cooperative. db Pain: Denies pain. Neuro: Level of Consciousness is awake, alert, obeys commands, Oriented to person, place, time, situation. Respiratory: Airway is patent Respiratory effort is even, unlabored, Respiratory pattern is regular. Historical: - Allergies: 17:40 No Known Allergies; db - PMHx: 17:40 diabetes mellitus; epilepsy; sarcoidosis (epilepsy); PORTAL HTN (epilepsy); db - Immunization history:: Adult Immunizations unknown, Client reports receiving the 2nd dose of the Covid vaccine. - Social history:: Smoking status: Patient denies any tobacco usage or history of. - Family history:: not pertinent. Screenin:41 [facility] ED Fall Risk Assessment (Adult) History of falling in the last 3 months, rs5 including since admission No falls in past 3 months (0 pts) Confusion or Disorientation No (0 pts) Intoxicated or Sedated No (0 pts) Impaired Gait No (0 pts) Mobility Assist Device Used Yes (1 pt) Altered Elimination No (0 pt) Score/Fall Risk Level 0 - 2 = Low Risk Oriented to surroundings, Maintained a safe environment. 17:41 Abuse screen: Denies threats or abuse. Nutritional screening: No deficits noted. rs5 Tuberculosis screening: No symptoms or risk factors identified. Assessment: 17:45 General: Appears in no apparent distress. comfortable, Behavior is calm, cooperative. rs5 Pain: Denies pain. Neuro: Level of Consciousness is awake, alert, obeys commands, Oriented to person, place, time, situation. Cardiovascular: Heart tones S1 S2 present Patient's skin is warm and dry. Rhythm is regular. Respiratory: Airway is patent Respiratory effort is even, unlabored, Respiratory pattern is regular, symmetrical, Breath sounds are clear bilaterally. GI: Abdomen is round non-distended, Bowel sounds present X 4 quads. Abd is soft and non tender X 4 quads. Reports Spitting up small amounts of jac red blood one hour prior to arrival. Pt states "I had some kind of abdominal procedure not to long ago for my esophageal varices and I'm worried something might be wrong" Patient currently denies nausea, pain, vomiting. 17:45 GI: Patient currently denies. : No signs and/or symptoms were reported regarding the rs5 genitourinary system. EENT: No signs and/or symptoms were reported regarding the EENT system. Derm: Skin is intact, Skin is pink, warm \\T\\ dry. Skin temperature is warm. Musculoskeletal: Range of motion: intact in all extremities. 04/08 00:23 Reassessment: Patient appears in no apparent distress at this time. No changes from la4 previously documented assessment. Patient is alert, oriented x 3, equal unlabored respirations, skin warm/dry/pink. Report called to RUBEN TORRES in ED at [facility]. EMS called for transport and ETA 20 minutes at this time. Pt updated on plan of care and EMS ETA for transport. Verbalized understanding of plan of care and is in agreement Patient states feeling better. Vital Signs: 04/07 17:38 BP 121 / 83; Pulse 94; Resp 16; Temp 98.2; Pulse Ox 98% on R/A; Weight 90.72 kg; Height db 5 ft. 10 in. ; Pain 0/10; 18:16 BP 125 / 80; Pulse 90; Resp 17; Pulse Ox 99% on R/A; rs5 19:00 BP 118 / 67; Pulse 85; Pulse Ox 99% on R/A; la4 20:00 BP 119 / 77; Pulse 81; Pulse Ox 99% ; la4 21:00 BP 97 / 55; Pulse 79; Temp 98.3; Pulse Ox 99% ; la4 22:00 BP 110 / 69; Pulse 75; Pulse Ox 98% ; la4 04/08 00:20 BP 115 / 75; Pulse 73; Resp 20; Pulse Ox 97% ; la4 01:04 BP 105 / 76; Pulse 66; Resp 18; Pulse Ox 100% ; la4 04/07 17:38 Body Mass Index 28.70 (90.72 kg, 177.8 cm) db 04/07 17:38 Pain Scale: Adult db Vitals: 00:20 Cardiac Rhythm Assessment Regular Sinus rhythm. la4 [place] Coma Score: 04/07 22:00 Eye Response: spontaneous(4). Motor Response: obeys commands(6). Verbal Response: la4 oriented(5). Total: 15. 04/08 00:20 Eye Response: spontaneous(4). Motor Response: obeys commands(6). Verbal Response: la4 oriented(5). Total: 15. 01:04 Eye Response: spontaneous(4). Motor Response: obeys commands(6). Verbal Response: la4 oriented(5). Total: 15. ED Course: 04/07 17:12 Patient arrived in ED. mr 17:13 Ghanshyam Szymanski MD is Attending Physician. rt 17:40 Triage completed. db 17:41 Arm band placed on Patient placed. db 18:11 Evgeny Carpio, BRIAN is Primary Nurse. rs5 21:04 Attending Physician role handed off by Ghanshyam Szymanski MD sp4 21:04 Yoni Dia MD is Attending Physician. sp4 21:13 CBC with Diff Sent. as6 21:13 CMP Sent. as6 21:13 Type And Screen Sent. as6 21:13 PT-INR Sent. as6 21:13 Ptt, Activated Sent. as6 21:13 Inserted saline lock: 20 gauge in left antecubital area, using aseptic technique. Blood as6 collected. 22:00 No apparent distress. transfer. la4 22:00 Patient has correct armband on for positive identification. Placed in gown. Bed in low la4 position. Call light in reach. Side rails up X2. Provided Education on: Plan of care and plan to transfer discussed w/ pt . 22:00 No provider procedures requiring assistance completed. la4 22:55 Initiated transfer to [facility], spoke with Ana. wm 23:48 Pt accepted for transfer to [facility] Rm: [id number] by Steve Newsome \\T\\ [id number] per Ana Gaspar. 04/08 00:03 EMS denied transport due to still being on another transfer. 00:07 [facility] accepted for transport with an ETA of 0040. wm 00:20 transfer transportation to receiving facility. la4 00:20 Patient transferred, IV remains in place. la4 01:05 Inserted saline lock: 18 gauge in left wrist, using aseptic technique. la4 Administered Medications: 04/07 21:58 Drug: Keppra IV 1000 mg IV at calculated rate once Route: IV; Rate: calculated rate; la4 Site: left antecubital; 22:41 Follow up: Response: No adverse reaction; IV Status: Completed infusion; IV Intake: la4 100ml 21:58 Drug: Pantoprazole IV 8 mg/hr IV at 25 ml/hr continuous; (Standard dilution is 80 mg in la4 250 mL NS) Route: IV; Rate: 25 ml/hr; Site: left antecubital; 22:40 Follow up: Response: No adverse reaction la4 22:41 Follow up: Response: No adverse reaction la4 21:58 Drug: Octreotide IV 50 mcg IV at bolus once Route: IV; Rate: bolus; Site: left la4 antecubital; 22:40 Follow up: Response: No adverse reaction; Pain is decreased la4 21:58 Drug: Pantoprazole IVP 80 mg IVP once Route: IVP; Site: left antecubital; la4 22:40 Follow up: Response: No adverse reaction; Pain is decreased la4 21:58 Drug: Famotidine IVP 20 mg IVP once; dilute with 10 mL 0.9% NaCl; give over 2 minutes la4 Route: IVP; Site: left antecubital; 22:40 Follow up: Response: No adverse reaction la4 21:58 Drug: NS 0.9% IV 1000 ml IV at 125 ml/hr continuous Route: IV; Rate: 125 ml/hr; Site: la4 left antecubital; 22:41 Follow up: Response: No adverse reaction la4 04/08 01:05 Drug: Octreotide Infusion (50 mcg/hr) - (Octreotide IV 500 mcg, NS 0.9% IV 500 ml) IV la4 at 50 ml/hr continuous Route: IV; Rate: 50 ml/hr; Site: right wrist; Medication: 04/07 22:00 VIS not applicable for this client. la4 Intake: 22:41 IV: 100ml; Total: 100ml. la4 Outcome: 23:43 ER care complete, transfer ordered by . sp4 04/08 00:20 Transferred by ground EMS to [facility], Transfer form completed. la4 Condition: stable Discharge instructions given to patient, family, Instructed on the need for transfer, Demonstrated understanding of instructions, plan of care for transfer and reasoning 01:06 Patient left the ED. la4 Signatures: Brittany Miner, Reg Reg Donna Doe Edmond Abdi RN RN as6 Yeny Ayon RN RN db Ghanshyam Szymanski MD MD rt Evgeny Carpio RN RN rs5 Yoni Dia MD MD sp4 Omaira Virk RN RN la4 Corrections: (The following items were deleted from the chart) 04/07 17:40 17:38 Acuity: GLORIA 2 db db 17:41 17:38 Chief complaint: Patient states: STATES SPIT UP BLOOD X 2 TODAY. ESOPHAGEAL db VARICES BANDING ON 03/26/2023. db 22:39 21:00 BP 97 / 55; Pulse 79bpm; Pulse Ox 99%; la4 la4 23:54 22:55 Initiated transfer to [facility], spoke with Ana whitfield
--- NOTE | 2023-04-07 23:44 | EDPHYS ---
Physician Documentation [facility] Name: Chris Galvan Age: 52 yrs Sex: Male : 1970 Arrival Date: 04/07/2023 Time: 17:10 Bed 16 Private MD: ED Physician Yoni Dia HPI: 04/07 19:49 This 52 yrs old Male presents to ER via Ambulatory with complaints of Vomiting blood. rt 19:49 Patient presents to the ED with hematemesis. About 10 days ago, the patient had 3 rt esophageal varices banded at [facility]. This is due to portal hypertension from sarcoidosis per his report. Did not have any bleeding following that until today. He had an episode of feeling like he was refluxing followed by vomiting up small amount of blood. Denies any stool changes. Reports a mild epigastric discomfort but denies other acute complaints at this time, symptoms are moderate in severity, no other aggravating or alleviating factors.. Historical: - Allergies: 17:40 No Known Allergies; db - PMHx: 17:40 diabetes mellitus; epilepsy; sarcoidosis (epilepsy); PORTAL HTN (epilepsy); db - Immunization history:: Adult Immunizations unknown, Client reports receiving the 2nd dose of the Covid vaccine. - Social history:: Smoking status: Patient denies any tobacco usage or history of. - Family history:: not pertinent. ROS: 19:49 Constitutional: Negative for fever, chills, and weight loss, Cardiovascular: Negative rt for chest pain, palpitations, and edema, Respiratory: Negative for shortness of breath, cough, wheezing, and pleuritic chest pain, MS/Extremity: Negative for injury and deformity, Skin: Negative for injury, rash, and discoloration, Neuro: Negative for headache, weakness, numbness, tingling, and seizure, Psych: Negative for depression, anxiety, suicide ideation, homicidal ideation, and hallucinations, 19:49 Abdomen/GI: Positive for nausea, hematemesis, Exam: 19:49 Constitutional: This is a well developed, well nourished patient who is awake, alert, rt and in no acute distress. Head/Face: Normocephalic, atraumatic. Chest/axilla: Normal chest wall appearance and motion. Nontender with no deformity. No lesions are appreciated. Cardiovascular: Regular rate and rhythm with a normal S1 and S2. No gallops, murmurs, or rubs. Normal PMI, no JVD. No pulse deficits. Respiratory: Lungs have equal breath sounds bilaterally, clear to auscultation and percussion. No rales, rhonchi or wheezes noted. No increased work of breathing, no retractions or nasal flaring. Abdomen/GI: Soft, non-tender, with normal bowel sounds. No distension or tympany. No guarding or rebound. No evidence of tenderness throughout. Skin: Warm, dry with normal turgor. Normal color with no rashes, no lesions, and no evidence of cellulitis. MS/ Extremity: Pulses equal, no cyanosis. Neurovascular intact. Full, normal range of motion. Neuro: Awake and alert, GCS 15, oriented to person, place, time, and situation. Cranial nerves II-XII grossly intact. Motor strength 5/5 in all extremities. Sensory grossly intact. Cerebellar exam normal. Normal gait. Psych: Awake, alert, with orientation to person, place and time. Behavior, mood, and affect are within normal limits. Vital Signs: 17:38 BP 121 / 83; Pulse 94; Resp 16; Temp 98.2; Pulse Ox 98% on R/A; Weight 90.72 kg; Height db 5 ft. 10 in. ; Pain 0/10; 18:16 BP 125 / 80; Pulse 90; Resp 17; Pulse Ox 99% on R/A; rs5 19:00 BP 118 / 67; Pulse 85; Pulse Ox 99% on R/A; la4 20:00 BP 119 / 77; Pulse 81; Pulse Ox 99% ; la4 21:00 BP 97 / 55; Pulse 79; Temp 98.3; Pulse Ox 99% ; la4 22:00 BP 110 / 69; Pulse 75; Pulse Ox 98% ; la4 04/08 00:20 BP 115 / 75; Pulse 73; Resp 20; Pulse Ox 97% ; la4 01:04 BP 105 / 76; Pulse 66; Resp 18; Pulse Ox 100% ; la4 04/07 17:38 Body Mass Index 28.70 (90.72 kg, 177.8 cm) db 04/07 17:38 Pain Scale: Adult db Sachin Coma Score: 04/07 22:00 Eye Response: spontaneous(4). Motor Response: obeys commands(6). Verbal Response: la4 oriented(5). Total: 15. 04/08 00:20 Eye Response: spontaneous(4). Motor Response: obeys commands(6). Verbal Response: la4 oriented(5). Total: 15. 01:04 Eye Response: spontaneous(4). Motor Response: obeys commands(6). Verbal Response: la4 oriented(5). Total: 15. MDM: 04/07 18:36 Patient medically screened. rt 23:35 Differential Diagnosis altered mental status, sepsis, flu. Data reviewed: vital signs, sp4 nurses notes, old medical records, lab test result(s), CBC, electrolytes, hepatic panel. Consideration of Admission/Observation Escalation of care including admission/observation considered. ED course: T out. 23:41 ED course: Patient at this time warrants transfer for gastroenterology assessment, we sp4 will provide octreotide infusion as advised by accepting hospitalist at [facility]. Keep patient n.p.o.. 04/07 18:51 Order name: CBC with Diff; Complete Time: 22:22 rt 04/07 18:51 Order name: CMP; Complete Time: 22:22 rt 04/07 18:51 Order name: Type And Screen; Complete Time: 22:22 rt 04/07 18:51 Order name: PT-INR; Complete Time: 22:22 rt 04/07 18:51 Order name: Ptt, Activated; Complete Time: 22:22 rt 04/07 21:06 Order name: Glucose, Ancillary Testing; Complete Time: 22:22 EDMS 04/07 22:11 Order name: CBC Smear Scan; Complete Time: 22:22 EDMS 04/07 21:19 Order name: Saline Lock; Complete Time: 21:23 sp4 Administered Medications: 21:58 Drug: Keppra IV 1000 mg IV at calculated rate once Route: IV; Rate: calculated rate; la4 Site: left antecubital; 22:41 Follow up: Response: No adverse reaction; IV Status: Completed infusion; IV Intake: la4 100ml 21:58 Drug: Pantoprazole IV 8 mg/hr IV at 25 ml/hr continuous; (Standard dilution is 80 mg in la4 250 mL NS) Route: IV; Rate: 25 ml/hr; Site: left antecubital; 22:40 Follow up: Response: No adverse reaction la4 22:41 Follow up: Response: No adverse reaction la4 21:58 Drug: Octreotide IV 50 mcg IV at bolus once Route: IV; Rate: bolus; Site: left la4 antecubital; 22:40 Follow up: Response: No adverse reaction; Pain is decreased la4 21:58 Drug: Pantoprazole IVP 80 mg IVP once Route: IVP; Site: left antecubital; la4 22:40 Follow up: Response: No adverse reaction; Pain is decreased la4 21:58 Drug: Famotidine IVP 20 mg IVP once; dilute with 10 mL 0.9% NaCl; give over 2 minutes la4 Route: IVP; Site: left antecubital; 22:40 Follow up: Response: No adverse reaction la4 21:58 Drug: NS 0.9% IV 1000 ml IV at 125 ml/hr continuous Route: IV; Rate: 125 ml/hr; Site: la4 left antecubital; 22:41 Follow up: Response: No adverse reaction la4 04/08 01:05 Drug: Octreotide Infusion (50 mcg/hr) - (Octreotide IV 500 mcg, NS 0.9% IV 500 ml) IV la4 at 50 ml/hr continuous Route: IV; Rate: 50 ml/hr; Site: right wrist; Disposition Summary: 04/07/23 23:43 Transfer Ordered Notes: Transfer Location: [facility] sp4 Reason: Higher level of care sp4 Condition: Stable sp4 Problem: new sp4 Symptoms: have improved sp4 Accepting Physician: [facility] Admitting Hospitalist (04/08/23 01:06) la4 Diagnosis - GI Bleed/ Gastrointestinal hemorrhage, unspecified sp4 - Acute Cornell gastroesophageal bleeding, esophageal variceal bleeding sp4 Forms: - Medication Reconciliation Form sp4 - SBAR form sp4 Signatures: Dispatcher [employer] Yeny Espinoza RN RN db [place], Ryan, MD MD rt Potepalov, Sergey, MD MD sp4 Omaira Virk RN RN la4 Corrections: (The following items were deleted from the chart) 01:06 04/07 23:43 [facility] Admitting Hospitalist sp4 la4
[2023-04-08 02:50] VITALS: BP 105/76; TEMP 98.3; O2SAT 100
== END ==
LOC: ER 17:10
DX: K76.6 Portal hypertension (principal); I85.11 Secondary esophageal varices with bleeding; Z98.890 Other specified postprocedural states; D86.9 Sarcoidosis, unspecified; R11.0 Nausea; E11.9 Type 2 diabetes mellitus without complications
CPT/HCPCS: 85025; 36415; 86900; 86850; 85610; 86901; 82947; 85730; 80053; 99285; J2354 ×2; J1953; C9113; J7050 ×2; J7040; J7030